=== PATIENT | female | born 1955 | race African-American/Black ===

== ENCOUNTER 2021-05-11 02:45 | Inpatient (IN) | payer MEDICARE, OTHER ==
[2021-05-11] VITALS (11 sets, daily range): BP systolic 106–180; BP diastolic 54–82
[~2021-05-11] VITALS: Ht 170.2 cm; Wt 40.2 kg
[2021-05-11] MEDS ORDERED: NALOXONE 0.4 MG/ML VIAL. ONE (02:51)
--- NOTE | 2021-05-11 03:16 | PHYS DOC ---
Past Medical History Past Medical History: Hypertension, Other Additional Past Medical Histor: "poor circulation in legs" Past Surgical History: Hysterectomy, Other Additional Past Surgical Histo: bilateral leg stents Smoking Status: Current Every Day Smoker Alcohol Use: None Drug Use: None General Adult EDM: Chief Complaint: RESP ARREST HPI: HPI: Patient is a 66 year old female who reportedly recently returned home from [facility] 8 with a trach and G-tube in place presents with altered mental status. Was found down by her son. Unknown downtime. On EMS arrival was nonresponsive, GCS of 3. Satting in the seventies despite nonrebreather in front of her trach. Trach is cuffed, but cuff was down. EMS reports sats improved to the nineties upon BVM. Blood glucose in the 100s. No additional history was available from son. Review of Systems: Review of Systems: Unable to obtain ROS due to altered mental status and trach Heart Score: C/O Chest Pain: N/A Risk Factors: Risk Factors: DM, Current or recent (<one month) smoker, HTN, HLP, family history of CAD, obesity. Risk Scores: Score 0 - 3: 2.5% MACE over next 6 weeks - Discharge Home Score 4 - 6: 20.3% MACE over next 6 weeks - Admit for Clinical Observation Score 7 - 10: 72.7% MACE over next 6 weeks - Early Invasive Strategies Current Medications: Current Medications Medications (Trade) Dose Ordered Sig/Alis Start Time Stop Time Status Last Admin Dose Admin Naloxone HCl (Narcan) 0.4 mg STK-MED ONCE 05/11/21 02:51 05/11/21 02:51 DC Allergies: Allergies: Allergies Coded Allergies Type Severity Reaction Last Updated Verified codeine Allergy Severe 10/09/14 Yes Physical Exam: PE: Constitutional: non responsive. frail appearing. trach and g-tube in place. [] HENT:6.0 shiley XLT cuffed trach in place. copious yellow secretions from trach. cuff initially deflated. oropharynx clear [] Eyes: pupils pinpoint. minimally responsive. [] Neck: Normal range of motion, no tenderness, supple, no stridor. [] Cardiovascular: tachycardic. regular rhythm, no murmur [] Lungs & Thorax: ronchorous breath sound bilaterally. [] Abdomen: g-tube in place, soft, non-distended. . [] Skin: cool, dry [] Extremities: No tenderness, no cyanosis, no clubbing, ROM intact, no edema. [] Neurologic: Initially gcs 3. pinpoint pupils. after narcan pupils dilated, communicating via writing, moving all 4 extremities purposefully. [] EKG: EKG: [] Radiology/Procedures: Radiology/Procedures: [] Impression: [facility] [address] [place] [address] IMAGING REPORT Signed PATIENT: CAROLYN CALVIN LACCOUNT: [id number] : 1955 LOCATION: ER AGE: 66 SEX: F EXAM STATUS: REG ER ORD. PHYSICIAN: JACQUIE FARIAS MD REASON: trach with large amount of mucous secretions PROCEDURE: CHEST AP ONLY EXAM: XR CHEST 1V 05/11/2021 3:07 AM CLINICAL INDICATION: Trach with large amount of mucous secretions COMPARISON: None TECHNIQUE: AP upright view of the chest FINDINGS: A tracheostomy tube terminates below the clavicular heads, 3 synovitis of the jassi. Heart is normal in size. Lungs are well-expanded. There are patchy bilateral interstitial and alveolar opacities opacities. Pleural parenchymal thickening in the apices. No pleural effusion or pneumothorax. No acute osseous abnormality.. IMPRESSION: Patchy bilateral interstitial and alveolar opacities could reflect pneumonia or pulmonary edema. Electronically signed by: Ana Adan MD (05/11/2021 4:17 AM) [id number] DICTATED and SIGNED BY: ANA ADAN MD DATE: 05/11/21 [id number] 0 Course & Med Decision Making: Course & Med Decision Making Pertinent Labs and Imaging studies reviewed. (See chart for details) Patient 66-year-old female with unknown past medical history, but recently came home from [facility] with a trach 6lpm baseline and G-tube in place. Was found unresponsive by her son. Hypoxic on EMS arrival, did not improve with passive vaccination, but did improve with BVM prior to hospital arrival. Pupils were pinpoint, and she had poor respiratory effort on arrival. She had copious secretions from her trach which was suctioned. Her trach cuff was inflated and she was delivered BVM breaths with improvement of sats to 100%. She was given 0.4 mg IV Narcan, and her pupils dilated and she became responsive. Her son called the ED and stated that 20 mg oxycodone pill was crushed and administered through her feeding tube prior to this episode. Will check labs, ekg, cxr, and continue to monitor her respiratory status. 0316 she is not tolerating deflation of her trach cuff. inner cannula changed. she is intermittently requiring BVM/positive pressure ventilation and very frequent suctioning of thick secretions causing desaturations. lactic acid 5 CXR and secretions concerning for aspiration. will cover with zosyn. will require admission, potentially to ICU given her need for PPV and frequent suctioning. 0403 She has had several desats requiring suctioning of mucous plugging during her ED stay. Blood pressure has been borderline as well with MAP's around 65-80. 1.5 L IV fluids have been ordered. She is on BIPAP with pressure control setting currently. pulling appropriate volumes. confirmed with patient she is FULL CODE. ICU orders placed. 0537 [facility] [place] Disclaimer: [employer] Disclaimer: This electronic medical record was generated, in whole or in part, using a voice recognition dictation system. Departure Departure Impression: Primary Impression: Acute on chronic respiratory failure Additional Impressions: Aspiration pneumonia Opiate overdose Respiratory arrest Sepsis Disposition: 09 ADMITTED INPATIENT Admitting Physician: FADIA (liza) Condition: CRITICAL Referrals: LINCOLN CARCAMO MD (PCP) JACQUIE FARIAS MD May 11, 2021 03:16
[2021-05-11 03:26] LABS: BASO # 0.1 x10^3/uL (0.0-0.2); BASO % 1 % (0-3); EOS % 0 % (0-3); HEMATOCRIT 31.8 % (36.0-47.0); HEMOGLOBIN 10.6 g/dL (12.0-15.5); LYMPH # 1.4 x10^3/uL (1.0-4.8); LYMPH % 14 % (24-48); MEAN CORPUSCULAR HEMOGLOBIN 33 pg (25-35); MEAN CORPUSCULAR HGB CONC 33 g/dL (31-37); MEAN CORPUSCULAR VOLUME 99 fL (79-100); MONO # 0.6 x10^3/uL (0.0-1.1); MONO % 6 % (0-9); NEUT # 8.1 x10^3/uL (1.8-7.7); NEUT % 79 % (31-73); PLATELET COUNT 305 x10^3/uL (140-400); RED BLOOD COUNT 3.21 x10^6/uL (3.50-5.40); RED CELL DISTRIBUTION WIDTH 16.3 % (11.5-14.5); WHITE BLOOD COUNT 10.3 x10^3/uL (4.0-11.0)
[2021-05-11] MEDS ORDERED: NALOXONE 0.4 MG/ML VIAL. IV ONE (03:30)
[2021-05-11] MEDS ORDERED: IV NORMAL SALINE 1000ML BAG 1,000 ML IV ONE (03:30)
[2021-05-11 03:35] LABS: CALCIUM 9.7 mg/dL (8.5-10.1); CREATININE 1.7 mg/dL (0.6-1.0); GFR 36.2; POTASSIUM 5.1 mmol/L (3.5-5.1)
[2021-05-11 03:40] LABS: ALBUMIN 2.4 g/dL (3.4-5.0); ALBUMIN/GLOBULIN RATIO 0.4 (1.0-1.7); TOTAL BILIRUBIN 0.6 mg/dL (0.2-1.0)
[2021-05-11 03:50] LABS: BASE EXCESS COOX 3 mmol/L (-3-3); HCO3 COOX 29 mmol/L (21-28); METHEMOGLOBIN 0.5 % (0.0-1.9); OXYHEMOGLOBIN 95.6 %; PCO2 COOX 54 mmHg (35-46); PO2 COOX 129 mmHg (65-108); SAT O2 COOX 98 % (92-99)
[2021-05-11] MEDS ORDERED: PIPERACILLIN/TAZOBACTAM 4.5 GM in IV NORMAL SALINE 100ML 100 ML IV ONE (04:00)
[2021-05-11] MEDS ORDERED: VANCOMYCIN 1.25 GM in IV NORMAL SALINE 250ML 250 ML IV ONE (04:15)
[2021-05-11] MEDS ORDERED: PIPERACILLIN/TAZOBACTAM 3.375 GM in IV NORMAL SALINE 50ML 50 ML IV ONE (04:15)
--- NOTE | 2021-05-11 04:20 | RAD ---
EXAM: XR CHEST 1V 05/11/2021 3:07 AM CLINICAL INDICATION: Trach with large amount of mucous secretions COMPARISON: None TECHNIQUE: AP upright view of the chest FINDINGS: A tracheostomy tube terminates below the clavicular heads, 3 synovitis of the jassi. Hear t is normal in size. Lungs are well-expanded. There are patchy bilateral interstitial and alveolar op acities opacities. Pleural parenchymal thickening in the apices. No pleural effusion or pneumothorax. No acute osseous abnormality.. IMPRESSION: Patchy bilateral interstitial and alveolar opacities could reflect pneumonia or pulmonar y edema. Electronically signed by: Ana Adan MD (05/11/2021 4:17 AM) [id number]
[2021-05-11] MEDS ORDERED: VANCOMYCIN 1 GM in IV NORMAL SALINE 250ML 250 ML IV ONE (05:00)
[2021-05-11] MEDS ORDERED: IV NORMAL SALINE 500ML BAG 500 ML IV ONE (05:30)
[2021-05-11] MEDS ORDERED: NALOXONE 0.4 MG/ML VIAL. IV PRN (07:00)
--- NOTE | 2021-05-11 07:19 | PDOC1 ---
History and Physical Date of Admission Date of Admission DATE: 05/11/21 TIME: 06:23 Identification/Chief Complaint Chief Complaint AMS Source Source: Chart review History of Present Illness History of Present Illness Ms. Art De La Cruz is a 66-year-old tracheostomy and PEG tube dependent patient, who presents to the ED due to altered mental status. She recent return home from [facility] and was found down by her son. Patient is a poor historian due to much information is obtained through son's report to ED personnel. Reportedly found down by her son early this morning with unknown downtime. Prior to this episode her son reported to ED personnel that 20 mg oxycodone pill was crushed and administered through her feeding tube. Upon EMS arrival she was not responsive with GCS of 3. She was initially bagged by EMS but she would intermittently desaturate to around 70% on room air. Upon arrival in the ED she was tachycardic and tachypneic. Her oxygen saturation improved with Narcan. Labs on arrival showed WBC 10.3, hemoglobin 10.6, hematocrit 31.8, BUN 37, creatinine 1.7, CBG 151, lactic acid 5.6, AST 82, ALT 195, alkaline phosphatase 173, albumin 2.4. Chest x-ray showed patchy bilateral interstitial and alveolar opacities possibly reflective of pneumonia or pulmonary edema. She received broad-spectrum antibiotics and IV fluids in the ED. She reportedly has been vaccinated against COVID-19. Will admit to ICU for further medical management. Past Medical History Past Medical History HTN, tracheostomy, PVD, PEG tube dependence (further history unable to obtain due to clinical condition) Past Surgical History Past Surgical History Hysterectomy, bilateral leg stents Family History Family History Unable to obtain at this time due to clinical condition Social History Smoke: 1 pack per day ALCOHOL: none Drugs: None Current Problem List Problem List Problems Medical Problems: (1) Acute on chronic respiratory failure Status: Acute (2) Aspiration pneumonia Status: Acute (3) Opiate overdose Status: Acute (4) Respiratory arrest Status: Acute (5) Sepsis Status: Acute Current Medications Current Medications Current Medications Naloxone HCl (Narcan) 0.4 mg STK-MED ONCE .ROUTE ; Start 05/11/21 at 02:51; Stop 05/11/21 at 02:51; Status DC Naloxone HCl (Narcan) 0.4 mg 1X ONCE IV Last administered on 05/11/21at 02:55; Start 05/11/21 at 03:30; Stop 05/11/21 at 03:31; Status DC Sodium Chloride 1,000 ml @ 1,000 mls/hr 1X ONCE IV Last administered on 05/11/21at 03:30; Start 05/11/21 at 03:30; Stop 05/11/21 at 04:29; Status DC Piperacillin Sod/ Tazobactam Sod 4.5 gm/Sodium Chloride 100 ml @ 200 mls/hr 1X ONCE IV ; Start 05/11/21 at 04:00; Stop 05/11/21 at 04:29; Status UNV Piperacillin Sod/ Tazobactam Sod 3.375 gm/Sodium Chloride 50 ml @ 100 mls/hr 1X ONCE IV Last administered on 05/11/21at 04:11; Start 05/11/21 at 04:15; Stop 05/11/21 at 04:44; Status DC Vancomycin HCl 1.25 gm/Sodium Chloride 250 ml @ 166.667 mls/hr 1X ONCE IV ; Start 05/11/21 at 04:15; Stop 05/11/21 at 05:44; Status UNV Vancomycin HCl 1 gm/Sodium Chloride 250 ml @ 250 mls/hr 1X ONCE IV Last administered on 05/11/21at 04:49; Start 05/11/21 at 05:00; Stop 05/11/21 at 05:59; Status DC Sodium Chloride 500 ml @ 500 mls/hr 1X ONCE IV Last administered on 05/11/21at 05:30; Start 05/11/21 at 05:30; Stop 05/11/21 at 06:29 Allergies Allergies: Coded Allergies: codeine (Verified Allergy, Severe, 10/09/14) ROS Review of System Unable to obtain at this time due to clinical condition Physical Exam Physical Exam General: Alert, Cooperative, mild distress, frail-appearing HEENT: PERRLA, EOMI Lungs: Bilateral rales, Normal air movement, tracheostomy tube in place Heart: Tachycardic, no murmurs Cardiovascular: S1, S2 Abdomen: Normal bowel sounds, firm, PEG tube in place with surrounding tenderness Extremities: No clubbing, No cyanosis Skin: No rashes, No significant lesion Neuro: Normal tone, Sensation intact Psych/Mental Status: Mental status NL, Mood NL Vitals Vitals Vital Signs Date Time Temp Pulse Resp B/P (MAP) Pulse Ox O2 Delivery O2 Flow Rate FiO2 05/11/21 05:27 100 20 101/56 (71) 99 BiPAP/CPAP 05/11/21 03:20 15.0 05/11/21 02:50 97.7 97.7 Labs Labs Laboratory Tests Test 05/11/21 03:14 White Blood Count 10.3 x10^3/uL (4.0-11.0) Red Blood Count 3.21 x10^6/uL (3.50-5.40) Hemoglobin 10.6 g/dL (12.0-15.5) Hematocrit 31.8 % (36.0-47.0) Mean Corpuscular Volume 99 fL (79-100) Mean Corpuscular Hemoglobin 33 pg (25-35) Mean Corpuscular Hemoglobin Concent 33 g/dL (31-37) Red Cell Distribution Width 16.3 % (11.5-14.5) Platelet Count 305 x10^3/uL (140-400) Neutrophils (%) (Auto) 79 % (31-73) Lymphocytes (%) (Auto) 14 % (24-48) Monocytes (%) (Auto) 6 % (0-9) Eosinophils (%) (Auto) 0 % (0-3) Basophils (%) (Auto) 1 % (0-3) Neutrophils # (Auto) 8.1 x10^3/uL (1.8-7.7) Lymphocytes # (Auto) 1.4 x10^3/uL (1.0-4.8) Monocytes # (Auto) 0.6 x10^3/uL (0.0-1.1) Eosinophils # (Auto) 0.0 x10^3/uL (0.0-0.7) Basophils # (Auto) 0.1 x10^3/uL (0.0-0.2) Sodium Level 134 mmol/L (136-145) Potassium Level 5.1 mmol/L (3.5-5.1) Chloride Level 95 mmol/L (98-107) Carbon Dioxide Level 30 mmol/L (21-32) Anion Gap 9 (6-14) Blood Urea Nitrogen 37 mg/dL (7-20) Creatinine 1.7 mg/dL (0.6-1.0) Estimated GFR (Cockcroft-Gault) 36.2 BUN/Creatinine Ratio 22 (6-20) Glucose Level 151 mg/dL (70-99) Lactic Acid Level 5.6 mmol/L (0.4-2.0) Calcium Level 9.7 mg/dL (8.5-10.1) Total Bilirubin 0.6 mg/dL (0.2-1.0) Aspartate Amino Transf (AST/SGOT) 82 U/L (15-37) Alanine Aminotransferase (ALT/SGPT) 194 U/L (14-59) Alkaline Phosphatase 173 U/L (46-116) Creatine Kinase 97 U/L (26-192) Total Protein 9.0 g/dL (6.4-8.2) Albumin 2.4 g/dL (3.4-5.0) Albumin/Globulin Ratio 0.4 (1.0-1.7) Laboratory Tests Test 05/11/21 03:14 White Blood Count 10.3 x10^3/uL (4.0-11.0) Red Blood Count 3.21 x10^6/uL (3.50-5.40) Hemoglobin 10.6 g/dL (12.0-15.5) Hematocrit 31.8 % (36.0-47.0) Mean Corpuscular Volume 99 fL (79-100) Mean Corpuscular Hemoglobin 33 pg (25-35) Mean Corpuscular Hemoglobin Concent 33 g/dL (31-37) Red Cell Distribution Width 16.3 % (11.5-14.5) Platelet Count 305 x10^3/uL (140-400) Neutrophils (%) (Auto) 79 % (31-73) Lymphocytes (%) (Auto) 14 % (24-48) Monocytes (%) (Auto) 6 % (0-9) Eosinophils (%) (Auto) 0 % (0-3) Basophils (%) (Auto) 1 % (0-3) Neutrophils # (Auto) 8.1 x10^3/uL (1.8-7.7) Lymphocytes # (Auto) 1.4 x10^3/uL (1.0-4.8) Monocytes # (Auto) 0.6 x10^3/uL (0.0-1.1) Eosinophils # (Auto) 0.0 x10^3/uL (0.0-0.7) Basophils # (Auto) 0.1 x10^3/uL (0.0-0.2) Sodium Level 134 mmol/L (136-145) Potassium Level 5.1 mmol/L (3.5-5.1) Chloride Level 95 mmol/L (98-107) Carbon Dioxide Level 30 mmol/L (21-32) Anion Gap 9 (6-14) Blood Urea Nitrogen 37 mg/dL (7-20) Creatinine 1.7 mg/dL (0.6-1.0) Estimated GFR (Cockcroft-Gault) 36.2 BUN/Creatinine Ratio 22 (6-20) Glucose Level 151 mg/dL (70-99) Lactic Acid Level 5.6 mmol/L (0.4-2.0) Calcium Level 9.7 mg/dL (8.5-10.1) Total Bilirubin 0.6 mg/dL (0.2-1.0) Aspartate Amino Transf (AST/SGOT) 82 U/L (15-37) Alanine Aminotransferase (ALT/SGPT) 194 U/L (14-59) Alkaline Phosphatase 173 U/L (46-116) Creatine Kinase 97 U/L (26-192) Total Protein 9.0 g/dL (6.4-8.2) Albumin 2.4 g/dL (3.4-5.0) Albumin/Globulin Ratio 0.4 (1.0-1.7) Images Images PATIENT: CAROLYN CALVIN LACCOUNT: [id number] : 1955 LOCATION: ER AGE: 66 SEX: F EXAM STATUS: REG ER ORD. PHYSICIAN: JACQUIE FARIAS MD REASON: trach with large amount of mucous secretions PROCEDURE: CHEST AP ONLY EXAM: XR CHEST 1V 05/11/2021 3:07 AM CLINICAL INDICATION: Trach with large amount of mucous secretions COMPARISON: None TECHNIQUE: AP upright view of the chest FINDINGS: A tracheostomy tube terminates below the clavicular heads, 3 synovitis of the jassi. Heart is normal in size. Lungs are well-expanded. There are patchy bilateral interstitial and alveolar opacities opacities. Pleural parenchymal thickening in the apices. No pleural effusion or pneumothorax. No acute osseous abnormality.. IMPRESSION: Patchy bilateral interstitial and alveolar opacities could reflect pneumonia or pulmonary edema. VTE Prophylaxis Ordered VTE Prophylaxis Devices: No VTE Pharmacological Prophylaxi: Yes Assessment/Plan Assessment/Plan Sepsis Respiratory failure with hypoxia Healthcare associated pneumonia due to possibly gram-positive or possibly gram- positive organism Aspiration pneumonia Oxycodone overdose DEIRDRE due to vasomotor nephropathy Lactic acidosis Transaminitis Severe malnutrition COVID-19 PUI Plan: We will admit patient to ICU given her need for PPV and frequent suctioning Consultation placed to pulmonology Will add additional sepsis fluid bolus Continue treatment of pneumonia with vancomycin and cefepime Transaminitis possibly secondary to shock liver; will provide IV fluids and continue to monitor. Narcan as needed Based admission labs kidney function currently consistent with CKD 3b; no baseline kidney function labs to compare. Provide IV fluids and continue to monitor. Will consult nephrology if no significant improvement. MRSA pending COVID-19 pending Consult placed to nutrition Resume home medications FEN - PEG tube feeds per nutrition PPX - Heparin FULL CODE Dispo - inpatient for above Surrogate decision maker is her son (Gavino Wharton) Critical care time 30 minutes spent reviewing charts, reviewing labs, reviewing imaging, discussion with ED personnel and ED attending physician. Justifications for Admission Other Justification TITA GAVIN MD May 11, 2021 07:19
[2021-05-11] MEDS ORDERED: MAGNESIUM HYDROXIDE 2,400 MG/30 ML ORAL.SUSP. PO PRN (07:30)
[2021-05-11] MEDS ORDERED: ACETAMINOPHEN 325 MG TABLET. PO PRN (07:30)
[2021-05-11] MEDS ORDERED: 0.9 % SODIUM CHLORIDE 10 ML DISP.SYRIN. IV PRN (07:30)
[2021-05-11] MEDS ORDERED: ONDANSETRON PF 4 MG/2 ML VIAL. IVP PRN (07:30)
[2021-05-11] MEDS ORDERED: IV NORMAL SALINE 500ML BAG 250 ML IV ONE (07:30)
--- NOTE | 2021-05-11 10:10 | CONS ---
DATE OF CONSULTATION: 05/11/2021 PULMONARY CONSULTATION ATTENDING PHYSICIAN: Dr. Piper. REASON FOR CONSULTATION: Respiratory failure. HISTORY OF PRESENT ILLNESS: The patient is a 66-year-old female who has a history of chronic tracheostomy and PEG tube placement, details of which are not available. She lives at [facility]. She was brought into the Emergency Department due to altered mental status. Reportedly, the patient was found down by her son earlier this morning with unknown downtime. There was report of 20 mg of oxycodone pill, which was given to her through the feeding tube. The patient was not responsive upon initial arrival to the Emergency Room with a Kaylan Coma Scale of 3. She was initially bagged by EMS and she would intermittently desaturating around 70% on room air. The patient did receive Narcan, which did improve her mental status. Her initial arterial blood gases obtained in the ER showed a pH of 7.36, pCO2 of 54 and a pO2 of 129 on 100% FiO2. I reviewed the patient's chest x-ray and it shows bilateral lower lobe alveolar and interstitial infiltrates. She does have some moderate trach secretions. She is now fully awake when I saw her in the ICU. She does respond by nodding her head. Unable to obtain much history from the patient. PAST MEDICAL HISTORY: History of respiratory failure, tracheostomy of unclear etiology. History of peripheral vascular disease, hypertension, history of PEG tube. PAST SURGICAL HISTORY: As discussed above, in addition includes hysterectomy. FAMILY HISTORY: Unable to obtain. ALLERGIES: CODEINE. MEDICATIONS: Reviewed as listed in the MRAD including antibiotics, cefepime and vancomycin. REVIEW OF SYSTEMS: Unable to obtain from the patient. PHYSICAL EXAMINATION: VITAL SIGNS: Reviewed. Her T-max is 100.3, blood pressure is 101/71, pulse ox 100% on trach collar. NECK: Supple. Trach in place. LUNGS: Few rhonchi anteriorly. CARDIOVASCULAR: With a regular rate. ABDOMEN: Soft. PEG tube is in place. EXTREMITIES: With no pitting edema. LABORATORY DATA: Reviewed. ABG discussed in my history of present illness. Lactic acid 5.6. C-reactive protein 101. Procalcitonin 0.79. Sodium 134, potassium 5.1, BUN 37, creatinine 1.7, albumin 2.4. White cell count 10.3, hemoglobin 10.6, platelets 305. IMPRESSION: 1. [id number] hypoxic and hypercapnic respiratory failure secondary to toxic encephalopathy and likely aspiration pneumonitis. 2. Low-grade fever and mild leukocytosis, likely source is lungs. 3. Lactic acidosis with early sepsis secondary to suspected aspiration pneumonia. 4. Acute kidney injury. 5. Moderate to severe protein-calorie malnutrition. 6. History of chronic respiratory failure with chronic tracheostomy and PEG tube placement. RECOMMENDATIONS: 1. We will discontinue ventilator and we will leave her on trach shield. Mental status has improved. 2. Followup ABGs. 3. Continue broad-spectrum antibiotic. 4. Tracheostomy secretion for C and S. 5. Heparin for DVT prophylaxis. 6. Follow all the cultures. 7. Discussed with RN and RT. Discussed with hospitalist. We will follow along with you. Chart reviewed, imaging studies reviewed. Critical care time [address]: [place] TID: [id number]
[2021-05-11] MEDS: HEPARIN for SUB-Q USE 5,000 UNIT/ML VIAL. SQ SCH ×2 (10:17→21:24)
[2021-05-11] MEDS: FAMOTIDINE 20 MG/2 ML VIAL IVP SCH (10:17)
[2021-05-11 11:43] LABS: BASE EXCESS ABG 5 mmol/L (-3-3); HCO3 ABG 32 mmol/L (21-28); PO2 ABG 144 mmHg (65-108); SAT O2 ABG 98 % (92-99)
[2021-05-11 11:48] LABS: FIO2 ABG 60; PCO2 ABG 60 mmHg (35-46)
[2021-05-11] MEDS: CEFEPIME HCL IV Push 2 GM VIAL. IVP SCH (12:14)
[2021-05-11] MEDS: VANCOMYCIN PER PHARMACY MC PRN (14:57)
--- NOTE | 2021-05-11 14:59 | NUR ---
Pharmacy Vancomycin Dosing Note S:Consulted to monitor and dose vancomycin started 05/11/21. O:CAROLYN CALVIN is a 66 year old F with HCAP . Height: 5 feet, 7 inches Weight: 40.6 kg Carson Body Weight: 61.60 Adjusted Body Weight: 53.20 Dosing Weight: Actual Other Antibiotics: Cefepime LABS: Last BUN: 37 Last Creatinine: 1.7 Creatinine Clearance: 20 mL/min Last WBC: 10.3 Last Procalcitonin: 0.79 Tmax (past 24 hours): 100.3 Microbiology: - I/O: 800/375 Last dose given 05/11/21 at 0449 Vancomycin Dosing: Loading Dose: 1000 mg x1 Dosing Weight: Actual Target Trough: 15-20 A: Based on: weight and renal function P: 1. Dosed vancomycin 1000 mg IV One Time 2. Follow up BMP ordered for am to assess renal function for further dosing 3. Pharmacy will continue to monitor, follow and adjust therapy as needed. Cynthia Rosenthal RPH, 05/11/21 [id number]
--- NOTE | 2021-05-11 15:53 | NUR ---
Wound/Ostomy Care Wound Type/Assessment: wound consult for coccyx wound. Pt has intertrigo to gluteal fold as well as arterial stasis ulcers to left medial and lateral foot. Cleansed, assessed and dressed wounds. Treatment Recommendations/Plan: Barrier cream to gluteal fold, BID and PRN. Betadine and foam dressing to left foot 2x weekly. Education provided: PU prevention and WC POC. Offloading surface/device: ICU bed and pillows Recommended Referrals/Tests: na Discharge Recommendations for dressings: see above Addendum: 05/11/21 at 1604 by JAMAR PETERSON RN Will discuss with Lady Mariee to determine if arterial study and xray are needed
[2021-05-11] MEDS ORDERED: METO25TA4 PO (15:59)
[2021-05-11] MEDS ORDERED: IPRA0.2S5 NEB (15:59)
[2021-05-11] MEDS ORDERED: FENT1PAT13 TP (15:59)
[2021-05-11] MEDS ORDERED: OXYC10TA PO (15:59)
[2021-05-11] MEDS ORDERED: LOSA-73 PO (15:59)
[2021-05-11] MEDS ORDERED: ALBU2.5V14 NEB (15:59)
[2021-05-11] MEDS ORDERED: LEVO-101 PO (15:59)
[2021-05-11] MEDS: METOPROLOL IV PUSH 5 MG/5 ML VIAL. IVP SCH (17:25)
[2021-05-11 17:39] LABS: BILIRUBIN,URINE NEGATIVE (NEG); CLARITY,URINE CLEAR; COLOR,URINE YELLOW; NITRITE,URINE NEGATIVE (NEG); PROTEIN,URINE NEGATIVE (NEG-TRACE); UROBILINOGEN,URINE 0.2 mg/dL (0.2 mg/dL)
[2021-05-11 17:54] LABS: BACTERIA,URINE FEW /HPF (0-FEW)
[2021-05-11 17:55] LABS: RBC,URINE 0 /HPF (0-2)
[2021-05-11] MEDS: fentaNYL PF VIAL 100 MCG/2 ML VIAL IV PRN (18:17)
--- NOTE | 2021-05-11 19:26 | NUR ---
Nurse's note: The patient arrived on the unit at 1840 via bed on 10 liters oxygen per trach collar. The patient is awake, oriented x 3, does not complain of pain. She was oriented to the unit, belongings checked, and call light placed within reach. Report given to Nkechi GA.
[2021-05-12] MEDS: fentaNYL PF VIAL 100 MCG/2 ML VIAL IV PRN (00:22)
[2021-05-12] MEDS: METOPROLOL IV PUSH 5 MG/5 ML VIAL. IVP SCH ×4 (00:22→18:09)
[2021-05-12 03:07] VITALS: BP 139/69
[2021-05-12 07:48] LABS: BASO # 0.1 x10^3/uL (0.0-0.2); BASO % 1 % (0-3); EOS # 0.2 x10^3/uL (0.0-0.7); EOS % 2 % (0-3); HEMATOCRIT 30.8 % (36.0-47.0); HEMOGLOBIN 10.6 g/dL (12.0-15.5); LYMPH # 1.2 x10^3/uL (1.0-4.8); LYMPH % 12 % (24-48); MEAN CORPUSCULAR HEMOGLOBIN 33 pg (25-35); MEAN CORPUSCULAR HGB CONC 35 g/dL (31-37); MEAN CORPUSCULAR VOLUME 96 fL (79-100); MONO # 0.7 x10^3/uL (0.0-1.1); MONO % 7 % (0-9); NEUT # 7.7 x10^3/uL (1.8-7.7); NEUT % 78 % (31-73); PLATELET COUNT 317 x10^3/uL (140-400); RED BLOOD COUNT 3.21 x10^6/uL (3.50-5.40); RED CELL DISTRIBUTION WIDTH 16.1 % (11.5-14.5); WHITE BLOOD COUNT 9.9 x10^3/uL (4.0-11.0)
[2021-05-12 08:00] VITALS: BP 148/70
[2021-05-12 08:23] LABS: CHOLESTEROL/HDL RATIO 4.2
[2021-05-12 08:25] LABS: CALCIUM 9.4 mg/dL (8.5-10.1); CREATININE 0.7 mg/dL (0.6-1.0); DIRECT BILIRUBIN 0.2 mg/dL (0.0-0.2); GFR 100.7; POTASSIUM 4.5 mmol/L (3.5-5.1); TOTAL BILIRUBIN 0.5 mg/dL (0.2-1.0); TOTAL PROTEIN 8.3 g/dL (6.4-8.2)
[2021-05-12] MEDS: VANCOMYCIN PER PHARMACY MC PRN (08:29)
--- NOTE | 2021-05-12 08:35 | NUR ---
Pharmacy Vancomycin Dosing Note S: Consulted to monitor and dose vancomycin started 05/11/21. O: CAROLYN CALVIN is a 66 year old F with HCAP, . Other Antibiotics: Cefepime LABS: Last BUN: 20 Last Creatinine: 0.7 Creatinine Clearance: 35 mL/min Last WBC: 9.9 Last Procalcitonin: 0.79 Tmax (past 24 hours): 98.7 Microbiology: - I/O: 1597/1725 Drug Levels: Last level: on at Last dose given 05/11/21 at 0449 Vancomycin Dosing: Dosing Weight: Actual Target Trough: 15-20 A: Based on: renal function improvement P: 1. Begin Vancomycin 500 mg IV q24h 2. Follow up Trough level on 05/13/21 at 0830 3. Pharmacy will continue to monitor, follow and adjust therapy as needed. Cynthia Rosenthal RPH, 05/12/21 0887
--- NOTE | 2021-05-12 09:19 | PDOC ---
PULMONARY PROGRESS NOTES DATE: 05/12/21 TIME: 09:16 Subjective Remains on trach shield. Patient has moderate trach secretions. Vitals Vital Signs Date Time Temp Pulse Resp B/P (MAP) Pulse Ox O2 Delivery O2 Flow Rate FiO2 05/12/21 08:00 98.2 89 22 148/70 (96) 96 Tracheal Collar 98.2 05/12/21 04:05 10.0 General: Alert, No acute distress Lungs: Other (Anterior rhonchi) Cardiovascular: S1 Abdomen: Soft Neuro Exam: Alert Extremities: No Edema Skin: Warm Labs Laboratory Tests Test 05/11/21 03:14 05/11/21 03:20 05/11/21 08:40 05/11/21 11:47 White Blood Count 10.3 x10^3/uL (4.0-11.0) Red Blood Count 3.21 x10^6/uL (3.50-5.40) Hemoglobin 10.6 g/dL (12.0-15.5) Hematocrit 31.8 % (36.0-47.0) Mean Corpuscular Volume 99 fL (79-100) Mean Corpuscular Hemoglobin 33 pg (25-35) Mean Corpuscular Hemoglobin Concent 33 g/dL (31-37) Red Cell Distribution Width 16.3 % (11.5-14.5) Platelet Count 305 x10^3/uL (140-400) Neutrophils (%) (Auto) 79 % (31-73) Lymphocytes (%) (Auto) 14 % (24-48) Monocytes (%) (Auto) 6 % (0-9) Eosinophils (%) (Auto) 0 % (0-3) Basophils (%) (Auto) 1 % (0-3) Neutrophils # (Auto) 8.1 x10^3/uL (1.8-7.7) Lymphocytes # (Auto) 1.4 x10^3/uL (1.0-4.8) Monocytes # (Auto) 0.6 x10^3/uL (0.0-1.1) Eosinophils # (Auto) 0.0 x10^3/uL (0.0-0.7) Basophils # (Auto) 0.1 x10^3/uL (0.0-0.2) Sodium Level 134 mmol/L (136-145) Potassium Level 5.1 mmol/L (3.5-5.1) Chloride Level 95 mmol/L (98-107) Carbon Dioxide Level 30 mmol/L (21-32) Anion Gap 9 (6-14) Blood Urea Nitrogen 37 mg/dL (7-20) Creatinine 1.7 mg/dL (0.6-1.0) Estimated GFR (Cockcroft-Gault) 36.2 BUN/Creatinine Ratio 22 (6-20) Glucose Level 151 mg/dL (70-99) Lactic Acid Level 5.6 mmol/L (0.4-2.0) 1.3 mmol/L (0.4-2.0) Calcium Level 9.7 mg/dL (8.5-10.1) Total Bilirubin 0.6 mg/dL (0.2-1.0) Aspartate Amino Transf (AST/SGOT) 82 U/L (15-37) Alanine Aminotransferase (ALT/SGPT) 194 U/L (14-59) Alkaline Phosphatase 173 U/L (46-116) Creatine Kinase 97 U/L (26-192) C-Reactive Protein, Quantitative 101.5 mg/L (0-3.3) Total Protein 9.0 g/dL (6.4-8.2) Albumin 2.4 g/dL (3.4-5.0) Albumin/Globulin Ratio 0.4 (1.0-1.7) Procalcitonin 0.79 ng/mL (0.00-0.10) O2 Saturation 98 % (92-99) 98 % (92-99) Arterial Blood pH 7.36 (7.35-7.45) 7.34 (7.35-7.45) Arterial Blood pCO2 at Patient Temp 54 mmHg (35-46) 60 mmHg (35-46) Arterial Blood pO2 at Patient Temp 129 mmHg (65-108) 144 mmHg (65-108) Arterial Blood HCO3 29 mmol/L (21-28) 32 mmol/L (21-28) Arterial Blood Base Excess 3 mmol/L (-3-3) 5 mmol/L (-3-3) Oxyhemoglobin 95.6 % Methemoglobin 0.5 % (0.0-1.9) Carbon Monoxide, Quantitative 2.0 % (0.0-1.9) FiO2 100 60 Test 05/11/21 12:30 05/11/21 17:30 05/12/21 06:25 Nasal Screen MRSA (PCR) Negative (NEGATIVE) Urine Collection Type Unknown Urine Color Yellow Urine Clarity Clear Urine pH 6.0 (<5.0-8.0) Urine Specific [place] 1.010 (1.000-1.030) Urine Protein Negative mg/dL (NEG-TRACE) Urine Glucose (UA) Negative mg/dL (NEG) Urine Ketones (Stick) Negative mg/dL (NEG) Urine Blood Negative (NEG) Urine Nitrite Negative (NEG) Urine Bilirubin Negative (NEG) Urine Urobilinogen Dipstick 0.2 mg/dL (0.2 mg/dL) Urine Leukocyte Esterase Small (NEG) Urine RBC 0 /HPF (0-2) Urine WBC 11-20 /HPF (0-4) Urine Squamous Epithelial Cells Mod /LPF Urine Renal Epithelial Cells Occ /LPF Urine Bacteria Few /HPF (0-FEW) White Blood Count 9.9 x10^3/uL (4.0-11.0) Red Blood Count 3.21 x10^6/uL (3.50-5.40) Hemoglobin 10.6 g/dL (12.0-15.5) Hematocrit 30.8 % (36.0-47.0) Mean Corpuscular Volume 96 fL (79-100) Mean Corpuscular Hemoglobin 33 pg (25-35) Mean Corpuscular Hemoglobin Concent 35 g/dL (31-37) Red Cell Distribution Width 16.1 % (11.5-14.5) Platelet Count 317 x10^3/uL (140-400) Neutrophils (%) (Auto) 78 % (31-73) Lymphocytes (%) (Auto) 12 % (24-48) Monocytes (%) (Auto) 7 % (0-9) Eosinophils (%) (Auto) 2 % (0-3) Basophils (%) (Auto) 1 % (0-3) Neutrophils # (Auto) 7.7 x10^3/uL (1.8-7.7) Lymphocytes # (Auto) 1.2 x10^3/uL (1.0-4.8) Monocytes # (Auto) 0.7 x10^3/uL (0.0-1.1) Eosinophils # (Auto) 0.2 x10^3/uL (0.0-0.7) Basophils # (Auto) 0.1 x10^3/uL (0.0-0.2) Sodium Level 142 mmol/L (136-145) Potassium Level 4.5 mmol/L (3.5-5.1) Chloride Level 102 mmol/L (98-107) Carbon Dioxide Level 36 mmol/L (21-32) Anion Gap 4 (6-14) Blood Urea Nitrogen 20 mg/dL (7-20) Creatinine 0.7 mg/dL (0.6-1.0) Estimated GFR (Cockcroft-Gault) 100.7 Glucose Level 83 mg/dL (70-99) Calcium Level 9.4 mg/dL (8.5-10.1) Total Bilirubin 0.5 mg/dL (0.2-1.0) Direct Bilirubin 0.2 mg/dL (0.0-0.2) Aspartate Amino Transf (AST/SGOT) 66 U/L (15-37) Alanine Aminotransferase (ALT/SGPT) 143 U/L (14-59) Alkaline Phosphatase 149 U/L (46-116) C-Reactive Protein, Quantitative 131.9 mg/L (0-3.3) Total Protein 8.3 g/dL (6.4-8.2) Albumin 2.0 g/dL (3.4-5.0) Triglycerides Level 73 mg/dL (0-150) Cholesterol Level 158 mg/dL (0-200) LDL Cholesterol, Calculated 105 mg/dL (0-100) VLDL Cholesterol, Calculated 15 mg/dL (0-40) Non-HDL Cholesterol Calculated 120 mg/dL (0-129) HDL Cholesterol 38 mg/dL (40-60) Cholesterol/HDL Ratio 4.2 Laboratory Tests Test 05/11/21 11:47 05/11/21 12:30 05/11/21 17:30 05/12/21 06:25 O2 Saturation 98 % (92-99) Arterial Blood pH 7.34 (7.35-7.45) Arterial Blood pCO2 at Patient Temp 60 mmHg (35-46) Arterial Blood pO2 at Patient Temp 144 mmHg (65-108) Arterial Blood HCO3 32 mmol/L (21-28) Arterial Blood Base Excess 5 mmol/L (-3-3) FiO2 60 Nasal Screen MRSA (PCR) Negative (NEGATIVE) Urine Collection Type Unknown Urine Color Yellow Urine Clarity Clear Urine pH 6.0 (<5.0-8.0) Urine Specific [place] 1.010 (1.000-1.030) Urine Protein Negative mg/dL (NEG-TRACE) Urine Glucose (UA) Negative mg/dL (NEG) Urine Ketones (Stick) Negative mg/dL (NEG) Urine Blood Negative (NEG) Urine Nitrite Negative (NEG) Urine Bilirubin Negative (NEG) Urine Urobilinogen Dipstick 0.2 mg/dL (0.2 mg/dL) Urine Leukocyte Esterase Small (NEG) Urine RBC 0 /HPF (0-2) Urine WBC 11-20 /HPF (0-4) Urine Squamous Epithelial Cells Mod /LPF Urine Renal Epithelial Cells Occ /LPF Urine Bacteria Few /HPF (0-FEW) White Blood Count 9.9 x10^3/uL (4.0-11.0) Red Blood Count 3.21 x10^6/uL (3.50-5.40) Hemoglobin 10.6 g/dL (12.0-15.5) Hematocrit 30.8 % (36.0-47.0) Mean Corpuscular Volume 96 fL (79-100) Mean Corpuscular Hemoglobin 33 pg (25-35) Mean Corpuscular Hemoglobin Concent 35 g/dL (31-37) Red Cell Distribution Width 16.1 % (11.5-14.5) Platelet Count 317 x10^3/uL (140-400) Neutrophils (%) (Auto) 78 % (31-73) Lymphocytes (%) (Auto) 12 % (24-48) Monocytes (%) (Auto) 7 % (0-9) Eosinophils (%) (Auto) 2 % (0-3) Basophils (%) (Auto) 1 % (0-3) Neutrophils # (Auto) 7.7 x10^3/uL (1.8-7.7) Lymphocytes # (Auto) 1.2 x10^3/uL (1.0-4.8) Monocytes # (Auto) 0.7 x10^3/uL (0.0-1.1) Eosinophils # (Auto) 0.2 x10^3/uL (0.0-0.7) Basophils # (Auto) 0.1 x10^3/uL (0.0-0.2) Sodium Level 142 mmol/L (136-145) Potassium Level 4.5 mmol/L (3.5-5.1) Chloride Level 102 mmol/L (98-107) Carbon Dioxide Level 36 mmol/L (21-32) Anion Gap 4 (6-14) Blood Urea Nitrogen 20 mg/dL (7-20) Creatinine 0.7 mg/dL (0.6-1.0) Estimated GFR (Cockcroft-Gault) 100.7 Glucose Level 83 mg/dL (70-99) Calcium Level 9.4 mg/dL (8.5-10.1) Total Bilirubin 0.5 mg/dL (0.2-1.0) Direct Bilirubin 0.2 mg/dL (0.0-0.2) Aspartate Amino Transf (AST/SGOT) 66 U/L (15-37) Alanine Aminotransferase (ALT/SGPT) 143 U/L (14-59) Alkaline Phosphatase 149 U/L (46-116) C-Reactive Protein, Quantitative 131.9 mg/L (0-3.3) Total Protein 8.3 g/dL (6.4-8.2) Albumin 2.0 g/dL (3.4-5.0) Triglycerides Level 73 mg/dL (0-150) Cholesterol Level 158 mg/dL (0-200) LDL Cholesterol, Calculated 105 mg/dL (0-100) VLDL Cholesterol, Calculated 15 mg/dL (0-40) Non-HDL Cholesterol Calculated 120 mg/dL (0-129) HDL Cholesterol 38 mg/dL (40-60) Cholesterol/HDL Ratio 4.2 Medications Active Scripts Medications Dose Route/Sig Max Daily Dose Days Date Category Ipratropium [place] 0.2 Mg/1 Ml Solution 1 Vial NEB QID 05/11/21 Reported Albuterol Sulfate Conc Neb Soln (Albuterol Sulfate) 2.5 Mg/0.5 Ml Vial.neb 1 Vial NEB Q4HRS 05/11/21 Reported FENTANYL 12mcg/hr (Fentanyl) 1 Each Patch.td72 1 Patch TP Q3DAYS 05/11/21 Reported Oxycodone Hcl Immed.release (Oxycodone Hcl) 10 Mg Tablet 10 Mg PO PRN Q4HRS PRN 05/11/21 Reported Metoprolol Tartrate 25 Mg Tablet 25 Mg PO BID 05/11/21 Reported Losartan Potassium 50 Mg Tablet 25 Mg PO DAILY 05/11/21 Reported Synthroid (Levothyroxine Sodium) 100 Mcg Tablet 100 Tab PO DAILY 05/11/21 Reported Impression . 1. [id number] hypoxic and hypercapnic respiratory failure secondary to toxic encephalopathy and likely aspiration pneumonitis. 2. Low-grade fever and mild leukocytosis, likely source is lungs. 3. Lactic acidosis with early sepsis secondary to suspected aspiration pneumonia. 4. Acute kidney injury. 5. Moderate to severe protein-calorie malnutrition. 6. History of chronic respiratory failure with chronic tracheostomy and PEG tube placement. Plan . 1. Continue on trach shield. With as needed suction. 2. Followup ABGs. As needed. 3. Continue broad-spectrum antibiotic. 4. Tracheostomy secretion for C and S.( Gram positive rods/ cocci) , Follow fin al cultures 5. Heparin for DVT prophylaxis. 6. Follow all the cultures. 7. Discussed with RN 8. Avoid hyperoxia. FRANK SANTIZO MD May 12, 2021 09:19
--- NOTE | 2021-05-12 09:54 | PDOC ---
PROGRESS NOTES Date of Service: DATE: 05/12/21 TIME: 09:54 Chief Complaint Chief Complaint Assessment/Plan Assessment/Plan Sepsis Respiratory failure with hypoxia / Patchy bilateral interstitial and alveolar opacities could reflect pneumonia or pulmonary edema Healthcare associated pneumonia due to possibly gram-positive or possibly gram- positive organism Aspiration pneumonia Oxycodone overdose DEIRDRE due to vasomotor nephropathy Lactic acidosis Transaminitis Severe malnutrition COVID-19 PUI Plan: We will admit patient to ICU given her need for PPV and frequent suctioning Consultation placed to pulmonology Will add additional sepsis fluid bolus Continue treatment of pneumonia with vancomycin and cefepime Transaminitis possibly secondary to shock liver; will provide IV fluids and cont inue to monitor. Narcan as needed Based admission labs kidney function currently consistent with CKD 3b; no baseline kidney function labs to compare. Provide IV fluids and continue to monitor. Will consult nephrology if no significant improvement. MRSA pending COVID-19 pending Consult placed to nutrition Resume home medications FEN - PEG tube feeds per nutrition PPX - Heparin FULL CODE Dispo - inpatient for above Surrogate decision maker is her son (Gavino Wharton) Critical care time 32 minutes spent reviewing charts, reviewing labs, reviewing imaging, discussion with ED personnel and ED attending physician. Discontinue ventilator and we will leave her on trach shield. Mental status has improved. Followup ABGs. Continue broad-spectrum antibiotic. Tracheostomy secretion for C and S. Heparin for DVT prophylaxis. 32 MIN CC TIME Justifications for Admission Justifications for Admission Other Justification History of Present Illness History of Present Illness Identification/Chief Complaint Chief Complaint AMS Source Source: Chart review History of Present Illness History of Present Illness Ms. Art De La Cruz is a 66-year-old tracheostomy and PEG tube dependent patient, who presents to the ED due to altered mental status. She recent return home from [facility] and was found down by her son. Patient is a poor historian due to much information is obtained through son's report to ED personnel. Reportedly found down by her son early this morning with unknown do wntime. Prior to this episode her son reported to ED personnel that 20 mg oxycodone pill was crushed and administered through her feeding tube. Upon EMS arrival she was not responsive with GCS of 3. She was initially bagged by EMS but she would intermittently desaturate to around 70% on room air. Upon arrival in the ED she was tachycardic and tachypneic. Her oxygen saturation improved with Narcan. Labs on arrival showed WBC 10.3, hemoglobin 10.6, hematocrit 31.8, BUN 37, creatinine 1.7, CBG 151, lactic acid 5.6, AST 82, ALT 195, alkaline phosphatase 173, albumin 2.4. Chest x-ray showed patchy bilateral interstitial and alveolar opacities possibly reflective of pneumonia or pulmonary edema. She received broad-spectrum antibiotics and IV fluids in the ED. She reportedly has been vaccinated against COVID-19. Will admit to ICU for further medical management. Past Medical History Past Medical History HTN, tracheostomy, PVD, PEG tube dependence (further history unable to obtain due to clinical condition) Past Surgical History Past Surgical History Hysterectomy, bilateral leg stents Family History Family History Unable to obtain at this time due to clinical condition Social History Smoke: 1 pack per day ALCOHOL: none Drugs: None Current Problem List Problem List Problems Medical Problems: (1) Acute on chronic respiratory failure Status: Acute (2) Aspiration pneumonia Status: Acute (3) Opiate overdose Status: Acute (4) Respiratory arrest Status: Acute (5) Sepsis Status: Acute Current Medications Current Medications Current Medications Naloxone HCl (Narcan) 0.4 mg STK-MED ONCE .ROUTE ; Start 05/11/21 at 02:51; Stop 05/11/21 at 02:51; Status DC Naloxone HCl (Narcan) 0.4 mg 1X ONCE IV Last administered on 05/11/21at 02:55; Start 05/11/21 at 03:30; Stop 05/11/21 at 03:31; Status DC Sodium Chloride 1,000 ml @ 1,000 mls/hr 1X ONCE IV Last administered on 05/11/21at 03:30; Start 05/11/21 at 03:30; Stop 05/11/21 at 04:29; Status DC Piperacillin Sod/ Tazobactam Sod 4.5 gm/Sodium Chloride 100 ml @ 200 mls/hr 1X ONCE IV ; Start 05/11/21 at 04:00; Stop 05/11/21 at 04:29; Status UNV Piperacillin Sod/ Tazobactam Sod 3.375 gm/Sodium Chloride 50 ml @ 100 mls/hr 1X ONCE IV Last administered on 05/11/21at 04:11; Start 05/11/21 at 04:15; Stop 05/11/21 at 04:44; Status DC Vancomycin HCl 1.25 gm/Sodium Chloride 250 ml @ 166.667 mls/hr 1X ONCE IV ; Start 05/11/21 at 04:15; Stop 05/11/21 at 05:44; Status UNV Vancomycin HCl 1 gm/Sodium Chloride 250 ml @ 250 mls/hr 1X ONCE IV Last administered on 05/11/21at 04:49; Start 05/11/21 at 05:00; Stop 05/11/21 at 05:59; Status DC Sodium Chloride 500 ml @ 500 mls/hr 1X ONCE IV Last administered on 05/11/21at 05:30; Start 05/11/21 at 05:30; Stop 05/11/21 at 06:29 Allergies Allergies: Coded Allergies: codeine (Verified Allergy, Severe, 10/09/14) ROS Review of System Unable to obtain at this time due to clinical condition Vitals Vitals Vital Signs Date Time Temp Pulse Resp B/P (MAP) Pulse Ox O2 Delivery O2 Flow Rate FiO2 05/12/21 08:00 98.2 89 22 148/70 (96) 96 Tracheal Collar 98.2 05/12/21 04:05 10.0 Physical Exam Physical Exam Physical Exam Physical Exam General: Alert, Cooperative, mild distress, frail-appearing HEENT: PERRLA, EOMI Lungs: Bilateral rales, Normal air movement, tracheostomy tube in place Heart: Tachycardic, no murmurs Cardiovascular: S1, S2 Abdomen: Normal bowel sounds, firm, PEG tube in place with surrounding tenderness Extremities: No clubbing, No cyanosis Skin: No rashes, No significant lesion Neuro: Normal tone, Sensation intact Psych/Mental Status: Mental status NL, Mood NL General: Cooperative Lungs: Other (Anterior rhonchi) Labs LABS PATIENT: CAROLYN CALVIN LACCOUNT: [id number] : 1955 LOCATION: ER AGE: 66 SEX: F EXAM STATUS: REG ER ORD. PHYSICIAN: JACQUIE FARIAS MD REASON: trach with large amount of mucous secretions PROCEDURE: CHEST AP ONLY EXAM: XR CHEST 1V 05/11/2021 3:07 AM CLINICAL INDICATION: Trach with large amount of mucous secretions COMPARISON: None TECHNIQUE: AP upright view of the chest FINDINGS: A tracheostomy tube terminates below the clavicular heads, 3 synovitis of the jassi. Heart is normal in size. Lungs are well-expanded. There are patchy bilateral interstitial and alveolar opacities opacities. Pleural parenchymal thickening in the apices. No pleural effusion or pneumothorax. No acute osseous abnormality.. IMPRESSION: Patchy bilateral interstitial and alveolar opacities could reflect pneumonia or pulmonary edema. Electronically signed by: Ana Adan MD (05/11/2021 4:17 AM) [id number] DICTATED and SIGNED BY: ANA ADAN MD DATE: 05/11/21 [id number] Laboratory Tests Test 05/11/21 11:47 05/11/21 12:30 05/11/21 17:30 05/12/21 06:25 O2 Saturation 98 % (92-99) Arterial Blood pH 7.34 (7.35-7.45) Arterial Blood pCO2 at Patient Temp 60 mmHg (35-46) Arterial Blood pO2 at Patient Temp 144 mmHg (65-108) Arterial Blood HCO3 32 mmol/L (21-28) Arterial Blood Base Excess 5 mmol/L (-3-3) FiO2 60 Nasal Screen MRSA (PCR) Negative (NEGATIVE) Urine Collection Type Unknown Urine Color Yellow Urine Clarity Clear Urine pH 6.0 (<5.0-8.0) Urine Specific [place] 1.010 (1.000-1.030) Urine Protein Negative mg/dL (NEG-TRACE) Urine Glucose (UA) Negative mg/dL (NEG) Urine Ketones (Stick) Negative mg/dL (NEG) Urine Blood Negative (NEG) Urine Nitrite Negative (NEG) Urine Bilirubin Negative (NEG) Urine Urobilinogen Dipstick 0.2 mg/dL (0.2 mg/dL) Urine Leukocyte Esterase Small (NEG) Urine RBC 0 /HPF (0-2) Urine WBC 11-20 /HPF (0-4) Urine Squamous Epithelial Cells Mod /LPF Urine Renal Epithelial Cells Occ /LPF Urine Bacteria Few /HPF (0-FEW) White Blood Count 9.9 x10^3/uL (4.0-11.0) Red Blood Count 3.21 x10^6/uL (3.50-5.40) Hemoglobin 10.6 g/dL (12.0-15.5) Hematocrit 30.8 % (36.0-47.0) Mean Corpuscular Volume 96 fL (79-100) Mean Corpuscular Hemoglobin 33 pg (25-35) Mean Corpuscular Hemoglobin Concent 35 g/dL (31-37) Red Cell Distribution Width 16.1 % (11.5-14.5) Platelet Count 317 x10^3/uL (140-400) Neutrophils (%) (Auto) 78 % (31-73) Lymphocytes (%) (Auto) 12 % (24-48) Monocytes (%) (Auto) 7 % (0-9) Eosinophils (%) (Auto) 2 % (0-3) Basophils (%) (Auto) 1 % (0-3) Neutrophils # (Auto) 7.7 x10^3/uL (1.8-7.7) Lymphocytes # (Auto) 1.2 x10^3/uL (1.0-4.8) Monocytes # (Auto) 0.7 x10^3/uL (0.0-1.1) Eosinophils # (Auto) 0.2 x10^3/uL (0.0-0.7) Basophils # (Auto) 0.1 x10^3/uL (0.0-0.2) Sodium Level 142 mmol/L (136-145) Potassium Level 4.5 mmol/L (3.5-5.1) Chloride Level 102 mmol/L (98-107) Carbon Dioxide Level 36 mmol/L (21-32) Anion Gap 4 (6-14) Blood Urea Nitrogen 20 mg/dL (7-20) Creatinine 0.7 mg/dL (0.6-1.0) Estimated GFR (Cockcroft-Gault) 100.7 Glucose Level 83 mg/dL (70-99) Calcium Level 9.4 mg/dL (8.5-10.1) Total Bilirubin 0.5 mg/dL (0.2-1.0) Direct Bilirubin 0.2 mg/dL (0.0-0.2) Aspartate Amino Transf (AST/SGOT) 66 U/L (15-37) Alanine Aminotransferase (ALT/SGPT) 143 U/L (14-59) Alkaline Phosphatase 149 U/L (46-116) C-Reactive Protein, Quantitative 131.9 mg/L (0-3.3) Total Protein 8.3 g/dL (6.4-8.2) Albumin 2.0 g/dL (3.4-5.0) Triglycerides Level 73 mg/dL (0-150) Cholesterol Level 158 mg/dL (0-200) LDL Cholesterol, Calculated 105 mg/dL (0-100) VLDL Cholesterol, Calculated 15 mg/dL (0-40) Non-HDL Cholesterol Calculated 120 mg/dL (0-129) HDL Cholesterol 38 mg/dL (40-60) Cholesterol/HDL Ratio 4.2 Assessment and Plan Assessmemt and Plan Problems Medical Problems: (1) Acute on chronic respiratory failure Status: Acute (2) Aspiration pneumonia Status: Acute (3) Opiate overdose Status: Acute (4) Respiratory arrest Status: Acute (5) Sepsis Status: Acute Comment Review of Relevant I have reviewed the following items omari (where applicable) has been applied. Labs Laboratory Tests Test 05/11/21 03:14 05/11/21 03:20 05/11/21 08:40 05/11/21 11:47 White Blood Count 10.3 x10^3/uL (4.0-11.0) Red Blood Count 3.21 x10^6/uL (3.50-5.40) Hemoglobin 10.6 g/dL (12.0-15.5) Hematocrit 31.8 % (36.0-47.0) Mean Corpuscular Volume 99 fL (79-100) Mean Corpuscular Hemoglobin 33 pg (25-35) Mean Corpuscular Hemoglobin Concent 33 g/dL (31-37) Red Cell Distribution Width 16.3 % (11.5-14.5) Platelet Count 305 x10^3/uL (140-400) Neutrophils (%) (Auto) 79 % (31-73) Lymphocytes (%) (Auto) 14 % (24-48) Monocytes (%) (Auto) 6 % (0-9) Eosinophils (%) (Auto) 0 % (0-3) Basophils (%) (Auto) 1 % (0-3) Neutrophils # (Auto) 8.1 x10^3/uL (1.8-7.7) Lymphocytes # (Auto) 1.4 x10^3/uL (1.0-4.8) Monocytes # (Auto) 0.6 x10^3/uL (0.0-1.1) Eosinophils # (Auto) 0.0 x10^3/uL (0.0-0.7) Basophils # (Auto) 0.1 x10^3/uL (0.0-0.2) Sodium Level 134 mmol/L (136-145) Potassium Level 5.1 mmol/L (3.5-5.1) Chloride Level 95 mmol/L (98-107) Carbon Dioxide Level 30 mmol/L (21-32) Anion Gap 9 (6-14) Blood Urea Nitrogen 37 mg/dL (7-20) Creatinine 1.7 mg/dL (0.6-1.0) Estimated GFR (Cockcroft-Gault) 36.2 BUN/Creatinine Ratio 22 (6-20) Glucose Level 151 mg/dL (70-99) Lactic Acid Level 5.6 mmol/L (0.4-2.0) 1.3 mmol/L (0.4-2.0) Calcium Level 9.7 mg/dL (8.5-10.1) Total Bilirubin 0.6 mg/dL (0.2-1.0) Aspartate Amino Transf (AST/SGOT) 82 U/L (15-37) Alanine Aminotransferase (ALT/SGPT) 194 U/L (14-59) Alkaline Phosphatase 173 U/L (46-116) Creatine Kinase 97 U/L (26-192) C-Reactive Protein, Quantitative 101.5 mg/L (0-3.3) Total Protein 9.0 g/dL (6.4-8.2) Albumin 2.4 g/dL (3.4-5.0) Albumin/Globulin Ratio 0.4 (1.0-1.7) Procalcitonin 0.79 ng/mL (0.00-0.10) O2 Saturation 98 % (92-99) 98 % (92-99) Arterial Blood pH 7.36 (7.35-7.45) 7.34 (7.35-7.45) Arterial Blood pCO2 at Patient Temp 54 mmHg (35-46) 60 mmHg (35-46) Arterial Blood pO2 at Patient Temp 129 mmHg (65-108) 144 mmHg (65-108) Arterial Blood HCO3 29 mmol/L (21-28) 32 mmol/L (21-28) Arterial Blood Base Excess 3 mmol/L (-3-3) 5 mmol/L (-3-3) Oxyhemoglobin 95.6 % Methemoglobin 0.5 % (0.0-1.9) Carbon Monoxide, Quantitative 2.0 % (0.0-1.9) FiO2 100 60 Test 05/11/21 12:30 05/11/21 17:30 05/12/21 06:25 Nasal Screen MRSA (PCR) Negative (NEGATIVE) Urine Collection Type Unknown Urine Color Yellow Urine Clarity Clear Urine pH 6.0 (<5.0-8.0) Urine Specific [place] 1.010 (1.000-1.030) Urine Protein Negative mg/dL (NEG-TRACE) Urine Glucose (UA) Negative mg/dL (NEG) Urine Ketones (Stick) Negative mg/dL (NEG) Urine Blood Negative (NEG) Urine Nitrite Negative (NEG) Urine Bilirubin Negative (NEG) Urine Urobilinogen Dipstick 0.2 mg/dL (0.2 mg/dL) Urine Leukocyte Esterase Small (NEG) Urine RBC 0 /HPF (0-2) Urine WBC 11-20 /HPF (0-4) Urine Squamous Epithelial Cells Mod /LPF Urine Renal Epithelial Cells Occ /LPF Urine Bacteria Few /HPF (0-FEW) White Blood Count 9.9 x10^3/uL (4.0-11.0) Red Blood Count 3.21 x10^6/uL (3.50-5.40) Hemoglobin 10.6 g/dL (12.0-15.5) Hematocrit 30.8 % (36.0-47.0) Mean Corpuscular Volume 96 fL (79-100) Mean Corpuscular Hemoglobin 33 pg (25-35) Mean Corpuscular Hemoglobin Concent 35 g/dL (31-37) Red Cell Distribution Width 16.1 % (11.5-14.5) Platelet Count 317 x10^3/uL (140-400) Neutrophils (%) (Auto) 78 % (31-73) Lymphocytes (%) (Auto) 12 % (24-48) Monocytes (%) (Auto) 7 % (0-9) Eosinophils (%) (Auto) 2 % (0-3) Basophils (%) (Auto) 1 % (0-3) Neutrophils # (Auto) 7.7 x10^3/uL (1.8-7.7) Lymphocytes # (Auto) 1.2 x10^3/uL (1.0-4.8) Monocytes # (Auto) 0.7 x10^3/uL (0.0-1.1) Eosinophils # (Auto) 0.2 x10^3/uL (0.0-0.7) Basophils # (Auto) 0.1 x10^3/uL (0.0-0.2) Sodium Level 142 mmol/L (136-145) Potassium Level 4.5 mmol/L (3.5-5.1) Chloride Level 102 mmol/L (98-107) Carbon Dioxide Level 36 mmol/L (21-32) Anion Gap 4 (6-14) Blood Urea Nitrogen 20 mg/dL (7-20) Creatinine 0.7 mg/dL (0.6-1.0) Estimated GFR (Cockcroft-Gault) 100.7 Glucose Level 83 mg/dL (70-99) Calcium Level 9.4 mg/dL (8.5-10.1) Total Bilirubin 0.5 mg/dL (0.2-1.0) Direct Bilirubin 0.2 mg/dL (0.0-0.2) Aspartate Amino Transf (AST/SGOT) 66 U/L (15-37) Alanine Aminotransferase (ALT/SGPT) 143 U/L (14-59) Alkaline Phosphatase 149 U/L (46-116) C-Reactive Protein, Quantitative 131.9 mg/L (0-3.3) Total Protein 8.3 g/dL (6.4-8.2) Albumin 2.0 g/dL (3.4-5.0) Triglycerides Level 73 mg/dL (0-150) Cholesterol Level 158 mg/dL (0-200) LDL Cholesterol, Calculated 105 mg/dL (0-100) VLDL Cholesterol, Calculated 15 mg/dL (0-40) Non-HDL Cholesterol Calculated 120 mg/dL (0-129) HDL Cholesterol 38 mg/dL (40-60) Cholesterol/HDL Ratio 4.2 Laboratory Tests Test 05/11/21 11:47 05/11/21 12:30 05/11/21 17:30 05/12/21 06:25 O2 Saturation 98 % (92-99) Arterial Blood pH 7.34 (7.35-7.45) Arterial Blood pCO2 at Patient Temp 60 mmHg (35-46) Arterial Blood pO2 at Patient Temp 144 mmHg (65-108) Arterial Blood HCO3 32 mmol/L (21-28) Arterial Blood Base Excess 5 mmol/L (-3-3) FiO2 60 Nasal Screen MRSA (PCR) Negative (NEGATIVE) Urine Collection Type Unknown Urine Color Yellow Urine Clarity Clear Urine pH 6.0 (<5.0-8.0) Urine Specific [place] 1.010 (1.000-1.030) Urine Protein Negative mg/dL (NEG-TRACE) Urine Glucose (UA) Negative mg/dL (NEG) Urine Ketones (Stick) Negative mg/dL (NEG) Urine Blood Negative (NEG) Urine Nitrite Negative (NEG) Urine Bilirubin Negative (NEG) Urine Urobilinogen Dipstick 0.2 mg/dL (0.2 mg/dL) Urine Leukocyte Esterase Small (NEG) Urine RBC 0 /HPF (0-2) Urine WBC 11-20 /HPF (0-4) Urine Squamous Epithelial Cells Mod /LPF Urine Renal Epithelial Cells Occ /LPF Urine Bacteria Few /HPF (0-FEW) White Blood Count 9.9 x10^3/uL (4.0-11.0) Red Blood Count 3.21 x10^6/uL (3.50-5.40) Hemoglobin 10.6 g/dL (12.0-15.5) Hematocrit 30.8 % (36.0-47.0) Mean Corpuscular Volume 96 fL (79-100) Mean Corpuscular Hemoglobin 33 pg (25-35) Mean Corpuscular Hemoglobin Concent 35 g/dL (31-37) Red Cell Distribution Width 16.1 % (11.5-14.5) Platelet Count 317 x10^3/uL (140-400) Neutrophils (%) (Auto) 78 % (31-73) Lymphocytes (%) (Auto) 12 % (24-48) Monocytes (%) (Auto) 7 % (0-9) Eosinophils (%) (Auto) 2 % (0-3) Basophils (%) (Auto) 1 % (0-3) Neutrophils # (Auto) 7.7 x10^3/uL (1.8-7.7) Lymphocytes # (Auto) 1.2 x10^3/uL (1.0-4.8) Monocytes # (Auto) 0.7 x10^3/uL (0.0-1.1) Eosinophils # (Auto) 0.2 x10^3/uL (0.0-0.7) Basophils # (Auto) 0.1 x10^3/uL (0.0-0.2) Sodium Level 142 mmol/L (136-145) Potassium Level 4.5 mmol/L (3.5-5.1) Chloride Level 102 mmol/L (98-107) Carbon Dioxide Level 36 mmol/L (21-32) Anion Gap 4 (6-14) Blood Urea Nitrogen 20 mg/dL (7-20) Creatinine 0.7 mg/dL (0.6-1.0) Estimated GFR (Cockcroft-Gault) 100.7 Glucose Level 83 mg/dL (70-99) Calcium Level 9.4 mg/dL (8.5-10.1) Total Bilirubin 0.5 mg/dL (0.2-1.0) Direct Bilirubin 0.2 mg/dL (0.0-0.2) Aspartate Amino Transf (AST/SGOT) 66 U/L (15-37) Alanine Aminotransferase (ALT/SGPT) 143 U/L (14-59) Alkaline Phosphatase 149 U/L (46-116) C-Reactive Protein, Quantitative 131.9 mg/L (0-3.3) Total Protein 8.3 g/dL (6.4-8.2) Albumin 2.0 g/dL (3.4-5.0) Triglycerides Level 73 mg/dL (0-150) Cholesterol Level 158 mg/dL (0-200) LDL Cholesterol, Calculated 105 mg/dL (0-100) VLDL Cholesterol, Calculated 15 mg/dL (0-40) Non-HDL Cholesterol Calculated 120 mg/dL (0-129) HDL Cholesterol 38 mg/dL (40-60) Cholesterol/HDL Ratio 4.2 Medications Current Medications Naloxone HCl (Narcan) 0.4 mg STK-MED ONCE .ROUTE ; Start 05/11/21 at 02:51; Stop 05/11/21 at 02:51; Status DC Naloxone HCl (Narcan) 0.4 mg 1X ONCE IV Last administered on 05/11/21at 02:55; Start 05/11/21 at 03:30; Stop 05/11/21 at 03:31; Status DC Sodium Chloride 1,000 ml @ 1,000 mls/hr 1X ONCE IV Last administered on 05/11/21at 03:30; Start 05/11/21 at 03:30; Stop 05/11/21 at 04:29; Status DC Piperacillin Sod/ Tazobactam Sod 4.5 gm/Sodium Chloride 100 ml @ 200 mls/hr 1X ONCE IV ; Start 05/11/21 at 04:00; Stop 05/11/21 at 04:29; Status UNV Piperacillin Sod/ Tazobactam Sod 3.375 gm/Sodium Chloride 50 ml @ 100 mls/hr 1X ONCE IV Last administered on 05/11/21at 04:11; Start 05/11/21 at 04:15; Stop 05/11/21 at 04:44; Status DC Vancomycin HCl 1.25 gm/Sodium Chloride 250 ml @ 166.667 mls/hr 1X ONCE IV ; Start 05/11/21 at 04:15; Stop 05/11/21 at 05:44; Status UNV Vancomycin HCl 1 gm/Sodium Chloride 250 ml @ 250 mls/hr 1X ONCE IV Last administered on 05/11/21at 04:49; Start 05/11/21 at 05:00; Stop 05/11/21 at 05:59; Status DC Sodium Chloride 500 ml @ 500 mls/hr 1X ONCE IV Last administered on 05/11/21at 05:30; Start 05/11/21 at 05:30; Stop 05/11/21 at 06:29; Status DC Sodium Chloride 250 ml @ 250 mls/hr 1X ONCE IV Last administered on 05/11/21at 07:31; Start 05/11/21 at 07:30; Stop 05/11/21 at 08:29; Status DC Naloxone HCl (Narcan) 0.4 mg PRN Q2MIN PRN IV SEE COMMENTS; Start 05/11/21 at 07:00 Acetaminophen (Tylenol) 650 mg PRN Q6HRS PRN PO Headaches, Temp > 101.5'; Start 05/11/21 at 07:30 Lorazepam (Ativan Inj) 0.5 mg PRN Q6HRS PRN IVP ANXIETY / AGITATION; Start 05/11/21 at 07:30 Ondansetron HCl (Zofran) 4 mg PRN Q6HRS PRN IVP NAUSEA/VOMITING; Start 05/11/21 at 07:30 Famotidine (Pepcid Vial) 20 mg DAILY IVP Last administered on 05/11/21at 10:17; Start 05/11/21 at 09:00 Heparin Sodium (Porcine) (Heparin Sodium) 5,000 unit Q12HR SQ Last administered on 05/11/21at 21:24; Start 05/11/21 at 09:00 Sodium Chloride (Normal Saline Flush) 3 ml QSHIFT PRN IV AFTER MEDS AND BLOOD DRAWS; Start 05/11/21 at 07:30 Morphine Sulfate (Morphine Sulfate) 2 mg PRN Q1HR PRN IV PAIN; Start 05/11/21 at 07:30 Fentanyl Citrate (Fentanyl 2ml Vial) 25 mcg PRN Q1HR PRN IV PAIN Last administered on 05/12/21at 00:22; Start 05/11/21 at 07:30 Magnesium Hydroxide (Milk Of Magnesia) 2,400 mg PRN Q12HR PRN PO CONSTIPATION; Start 05/11/21 at 07:30 Vancomycin HCl (Vanco Per Pharmacy) 1 each PRN DAILY PRN MC SEE COMMENTS Last administered on 05/12/21at 08:29; Start 05/11/21 at 07:30 Cefepime HCl (Maxipime) 2 gm Q24H IVP Last administered on 05/11/21at 12:14; Start 05/11/21 at 12:00 Metoprolol Tartrate (Lopressor Vial) 5 mg Q6HRS IVP Last administered on 05/12/21at 06:31; Start 05/11/21 at 18:00 Vancomycin HCl 500 mg/Sodium Chloride 100 ml @ 100 mls/hr Q24H IV ; Start 05/12/21 at 09:00 Vancomycin HCl (Vancomycin Trough Level) 1 each 1X ONCE MC ; Start 05/13/21 at 08:30; Stop 05/13/21 at 08:31 Active Scripts Active Reported Ipratropium [place] 0.2 Mg/1 Ml Solution 1 Vial NEB QID Albuterol Sulfate Conc Neb Soln (Albuterol Sulfate) 2.5 Mg/0.5 Ml Vial.neb 1 Vial NEB Q4HRS FENTANYL 12mcg/hr (Fentanyl) 1 Each Patch.td72 1 Patch TP Q3DAYS Oxycodone Hcl Immed.release (Oxycodone Hcl) 10 Mg Tablet 10 Mg PO PRN Q4HRS PRN Metoprolol Tartrate 25 Mg Tablet 25 Mg PO BID Losartan Potassium 50 Mg Tablet 25 Mg PO DAILY Synthroid (Levothyroxine Sodium) 100 Mcg Tablet 100 Tab PO DAILY Vitals/I & O Vital Sign - Last 24 Hours 05/11/21 05/11/21 05/11/21 05/11/21 10:00 11:00 11:47 12:00 Pulse 104 105 108 Resp 16 16 16 B/P (MAP) 106/54 (71) 138/71 (93) 117/63 (81) Pulse Ox 100 100 100 97 O2 Delivery trach shield trach shield AP NEB trach shield O2 Flow Rate 10.0 10.0 10.0 10.0 05/11/21 05/11/21 05/11/21 05/11/21 12:45 13:00 14:00 15:00 Temp 98.0 98.0 Pulse 110 103 107 Resp 18 16 16 B/P (MAP) 167/76 (106) 163/79 (107) 122/62 (82) Pulse Ox 96 98 97 97 O2 Delivery Tracheal Collar trach shield trach shield trach shield O2 Flow Rate 10.0 10.0 10.0 10.0 05/11/21 05/11/21 05/11/21 05/11/21 16:00 17:00 17:25 18:17 Temp 98.7 98.7 Pulse 106 112 119 Resp 16 16 20 B/P (MAP) 140/74 (96) 180/82 (114) 180/82 Pulse Ox 98 97 94 O2 Delivery trach shield trach shield Tracheal Collar O2 Flow Rate 10.0 10.0 10.0 05/11/21 05/11/21 05/11/21 05/11/21 18:50 19:00 20:20 23:00 Temp 98.3 98.4 98.3 98.4 Pulse 96 105 Resp 22 18 20 B/P (MAP) 109/54 (72) 134/70 (91) Pulse Ox 94 98 100 O2 Delivery Tracheal Collar Tracheal Collar Trach Collar Tracheal Collar O2 Flow Rate 10.0 10.0 05/12/21 05/12/21 05/12/21 05/12/21 00:22 00:30 00:52 03:07 Temp 97.9 97.9 Pulse 105 88 Resp 22 18 B/P (MAP) 134/70 139/69 (92) Pulse Ox 94 100 O2 Delivery Tracheal Collar Tracheal Collar Tracheal Collar O2 Flow Rate 10.0 05/12/21 05/12/21 05/12/21 04:05 06:31 08:00 Temp 98.2 98.2 Pulse 99 89 Resp 22 B/P (MAP) 139/69 148/70 (96) Pulse Ox 94 96 O2 Delivery Tracheal Collar Tracheal Collar O2 Flow Rate 10.0 Intake and Output 05/11/21 05/11/21 05/12/21 15:00 23:00 07:00 Intake Total 800 ml 797 ml Output Total 375 ml 750 ml 600 ml Balance 425 ml 47 ml -600 ml Nutrition Consultation Dietary Evaluation: Recommendations by RD: Dietary education by RD, Add supplement feedings Comments: continue nutrition via PEG jevity 1.5 bolus 237 ml (1 carton)4 x day flushes: 175 ml with each bolus Expected Outcomes/Goals: tolerate bolus TF Malnutrition Findings: Muscle Mass (Severe): Severe Depletion Body Fat Depletion (Non Severe: Mod to Severe Weight Status: Underweight Justicifation of Admission Dx: Justifications for Admission: Justification of Admission Dx: Yes Sepsis: Infection RACHEL MATSON MD May 12, 2021 09:54
[2021-05-12] MEDS: FAMOTIDINE 20 MG/2 ML VIAL IVP SCH (10:16)
[2021-05-12] MEDS: MORPHINE SULFATE 2 MG/ML INJ. IV PRN ×2 (10:27→18:08)
[2021-05-12] MEDS: HEPARIN for SUB-Q USE 5,000 UNIT/ML VIAL. SQ SCH ×2 (10:34→20:54)
[2021-05-12 11:34] VITALS: BP 150/76
[2021-05-12] MEDS: CEFEPIME HCL IV Push 2 GM VIAL. IVP SCH (12:00)
--- NOTE | 2021-05-12 12:06 | NUR ---
SS following for discharge planning. SS reviewed pt chart and discussed with pt RN. Pt is from home with family and is currently requiring oxygen at ten liters. Trach collar in place. COVID19 negative. Pt on IV Cefepime and IV Vancomycin. Per pt's son, pt has home oxygen (baseline 6 liters). Pt is current on services with [facility], ; fax [phone]. Pt recently discharge from [place] on 04/14/2021. SS will continue to follow for discharge planning.
[2021-05-12 16:00] VITALS: BP 154/81
[2021-05-12] MEDS: VANCOMYCIN 500 MG in IV NORMAL SALINE 100ML 100 ML IV SCH ×2 (18:09→19:24)
[2021-05-12 19:00] VITALS: BP 132/70
[2021-05-12 23:00] VITALS: BP 158/88
[2021-05-13] MEDS: METOPROLOL IV PUSH 5 MG/5 ML VIAL. IVP SCH ×4 (01:02→17:52)
[2021-05-13 03:00] VITALS: BP 161/88
[2021-05-13] MEDS: MORPHINE SULFATE 2 MG/ML INJ. IV PRN ×3 (06:43→18:40)
[2021-05-13 07:00] VITALS: BP 159/84
[2021-05-13 07:31] LABS: BASO % 1 % (0-3); EOS % 1 % (0-3); HEMATOCRIT 32.6 % (36.0-47.0); HEMOGLOBIN 10.9 g/dL (12.0-15.5); LYMPH # 1.6 x10^3/uL (1.0-4.8); LYMPH % 19 % (24-48); MEAN CORPUSCULAR HEMOGLOBIN 33 pg (25-35); MEAN CORPUSCULAR HGB CONC 34 g/dL (31-37); MEAN CORPUSCULAR VOLUME 97 fL (79-100); MONO # 0.5 x10^3/uL (0.0-1.1); MONO % 7 % (0-9); NEUT # 6.1 x10^3/uL (1.8-7.7); NEUT % 73 % (31-73); PLATELET COUNT 383 x10^3/uL (140-400); RED BLOOD COUNT 3.36 x10^6/uL (3.50-5.40); RED CELL DISTRIBUTION WIDTH 16.2 % (11.5-14.5); WHITE BLOOD COUNT 8.4 x10^3/uL (4.0-11.0)
[2021-05-13 07:43] LABS: ALBUMIN 2.2 g/dL (3.4-5.0); CALCIUM 10.1 mg/dL (8.5-10.1); CREATININE 0.7 mg/dL (0.6-1.0); DIRECT BILIRUBIN 0.2 mg/dL (0.0-0.2); GFR 100.7; POTASSIUM 4.5 mmol/L (3.5-5.1); TOTAL BILIRUBIN 0.6 mg/dL (0.2-1.0); TOTAL PROTEIN 9.1 g/dL (6.4-8.2)
--- NOTE | 2021-05-13 07:57 | PDOC ---
PULMONARY PROGRESS NOTES DATE: 05/13/21 TIME: 07:57 Subjective Patient on trach shield, not more short of breath. Vitals Vital Signs Date Time Temp Pulse Resp B/P (MAP) Pulse Ox O2 Delivery O2 Flow Rate FiO2 05/13/21 07:25 18 98 10.0 05/13/21 05:47 95 161/88 05/13/21 03:00 97.8 97.8 05/12/21 20:27 Trach Collar ROS: No Nausea, No Chest Pain, No Abdominal Pain, No Increase Cough General: Alert, No acute distress Lungs: Other (Anterior rhonchi) Cardiovascular: S1 Abdomen: Soft Neuro Exam: Alert Extremities: No Edema Skin: Warm Labs Laboratory Tests Test 05/11/21 08:40 05/11/21 11:47 05/11/21 12:30 05/11/21 17:30 Lactic Acid Level 1.3 mmol/L (0.4-2.0) O2 Saturation 98 % (92-99) Arterial Blood pH 7.34 (7.35-7.45) Arterial Blood pCO2 at Patient Temp 60 mmHg (35-46) Arterial Blood pO2 at Patient Temp 144 mmHg (65-108) Arterial Blood HCO3 32 mmol/L (21-28) Arterial Blood Base Excess 5 mmol/L (-3-3) FiO2 60 Nasal Screen MRSA (PCR) Negative (NEGATIVE) Urine Collection Type Unknown Urine Color Yellow Urine Clarity Clear Urine pH 6.0 (<5.0-8.0) Urine Specific [place] 1.010 (1.000-1.030) Urine Protein Negative mg/dL (NEG-TRACE) Urine Glucose (UA) Negative mg/dL (NEG) Urine Ketones (Stick) Negative mg/dL (NEG) Urine Blood Negative (NEG) Urine Nitrite Negative (NEG) Urine Bilirubin Negative (NEG) Urine Urobilinogen Dipstick 0.2 mg/dL (0.2 mg/dL) Urine Leukocyte Esterase Small (NEG) Urine RBC 0 /HPF (0-2) Urine WBC 11-20 /HPF (0-4) Urine Squamous Epithelial Cells Mod /LPF Urine Renal Epithelial Cells Occ /LPF Urine Bacteria Few /HPF (0-FEW) Test 05/12/21 06:25 05/13/21 06:15 White Blood Count 9.9 x10^3/uL (4.0-11.0) 8.4 x10^3/uL (4.0-11.0) Red Blood Count 3.21 x10^6/uL (3.50-5.40) 3.36 x10^6/uL (3.50-5.40) Hemoglobin 10.6 g/dL (12.0-15.5) 10.9 g/dL (12.0-15.5) Hematocrit 30.8 % (36.0-47.0) 32.6 % (36.0-47.0) Mean Corpuscular Volume 96 fL (79-100) 97 fL (79-100) Mean Corpuscular Hemoglobin 33 pg (25-35) 33 pg (25-35) Mean Corpuscular Hemoglobin Concent 35 g/dL (31-37) 34 g/dL (31-37) Red Cell Distribution Width 16.1 % (11.5-14.5) 16.2 % (11.5-14.5) Platelet Count 317 x10^3/uL (140-400) 383 x10^3/uL (140-400) Neutrophils (%) (Auto) 78 % (31-73) 73 % (31-73) Lymphocytes (%) (Auto) 12 % (24-48) 19 % (24-48) Monocytes (%) (Auto) 7 % (0-9) 7 % (0-9) Eosinophils (%) (Auto) 2 % (0-3) 1 % (0-3) Basophils (%) (Auto) 1 % (0-3) 1 % (0-3) Neutrophils # (Auto) 7.7 x10^3/uL (1.8-7.7) 6.1 x10^3/uL (1.8-7.7) Lymphocytes # (Auto) 1.2 x10^3/uL (1.0-4.8) 1.6 x10^3/uL (1.0-4.8) Monocytes # (Auto) 0.7 x10^3/uL (0.0-1.1) 0.5 x10^3/uL (0.0-1.1) Eosinophils # (Auto) 0.2 x10^3/uL (0.0-0.7) 0.0 x10^3/uL (0.0-0.7) Basophils # (Auto) 0.1 x10^3/uL (0.0-0.2) 0.0 x10^3/uL (0.0-0.2) Sodium Level 142 mmol/L (136-145) 140 mmol/L (136-145) Potassium Level 4.5 mmol/L (3.5-5.1) 4.5 mmol/L (3.5-5.1) Chloride Level 102 mmol/L (98-107) 98 mmol/L (98-107) Carbon Dioxide Level 36 mmol/L (21-32) 34 mmol/L (21-32) Anion Gap 4 (6-14) 8 (6-14) Blood Urea Nitrogen 20 mg/dL (7-20) 20 mg/dL (7-20) Creatinine 0.7 mg/dL (0.6-1.0) 0.7 mg/dL (0.6-1.0) Estimated GFR (Cockcroft-Gault) 100.7 100.7 Glucose Level 83 mg/dL (70-99) 41 mg/dL (70-99) Calcium Level 9.4 mg/dL (8.5-10.1) 10.1 mg/dL (8.5-10.1) Total Bilirubin 0.5 mg/dL (0.2-1.0) 0.6 mg/dL (0.2-1.0) Direct Bilirubin 0.2 mg/dL (0.0-0.2) 0.2 mg/dL (0.0-0.2) Aspartate Amino Transf (AST/SGOT) 66 U/L (15-37) 35 U/L (15-37) Alanine Aminotransferase (ALT/SGPT) 143 U/L (14-59) 115 U/L (14-59) Alkaline Phosphatase 149 U/L (46-116) 153 U/L (46-116) C-Reactive Protein, Quantitative 131.9 mg/L (0-3.3) Total Protein 8.3 g/dL (6.4-8.2) 9.1 g/dL (6.4-8.2) Albumin 2.0 g/dL (3.4-5.0) 2.2 g/dL (3.4-5.0) Triglycerides Level 73 mg/dL (0-150) Cholesterol Level 158 mg/dL (0-200) LDL Cholesterol, Calculated 105 mg/dL (0-100) VLDL Cholesterol, Calculated 15 mg/dL (0-40) Non-HDL Cholesterol Calculated 120 mg/dL (0-129) HDL Cholesterol 38 mg/dL (40-60) Cholesterol/HDL Ratio 4.2 Laboratory Tests Test 05/13/21 06:15 White Blood Count 8.4 x10^3/uL (4.0-11.0) Red Blood Count 3.36 x10^6/uL (3.50-5.40) Hemoglobin 10.9 g/dL (12.0-15.5) Hematocrit 32.6 % (36.0-47.0) Mean Corpuscular Volume 97 fL (79-100) Mean Corpuscular Hemoglobin 33 pg (25-35) Mean Corpuscular Hemoglobin Concent 34 g/dL (31-37) Red Cell Distribution Width 16.2 % (11.5-14.5) Platelet Count 383 x10^3/uL (140-400) Neutrophils (%) (Auto) 73 % (31-73) Lymphocytes (%) (Auto) 19 % (24-48) Monocytes (%) (Auto) 7 % (0-9) Eosinophils (%) (Auto) 1 % (0-3) Basophils (%) (Auto) 1 % (0-3) Neutrophils # (Auto) 6.1 x10^3/uL (1.8-7.7) Lymphocytes # (Auto) 1.6 x10^3/uL (1.0-4.8) Monocytes # (Auto) 0.5 x10^3/uL (0.0-1.1) Eosinophils # (Auto) 0.0 x10^3/uL (0.0-0.7) Basophils # (Auto) 0.0 x10^3/uL (0.0-0.2) Sodium Level 140 mmol/L (136-145) Potassium Level 4.5 mmol/L (3.5-5.1) Chloride Level 98 mmol/L (98-107) Carbon Dioxide Level 34 mmol/L (21-32) Anion Gap 8 (6-14) Blood Urea Nitrogen 20 mg/dL (7-20) Creatinine 0.7 mg/dL (0.6-1.0) Estimated GFR (Cockcroft-Gault) 100.7 Glucose Level 41 mg/dL (70-99) Calcium Level 10.1 mg/dL (8.5-10.1) Total Bilirubin 0.6 mg/dL (0.2-1.0) Direct Bilirubin 0.2 mg/dL (0.0-0.2) Aspartate Amino Transf (AST/SGOT) 35 U/L (15-37) Alanine Aminotransferase (ALT/SGPT) 115 U/L (14-59) Alkaline Phosphatase 153 U/L (46-116) Total Protein 9.1 g/dL (6.4-8.2) Albumin 2.2 g/dL (3.4-5.0) Medications Active Scripts Medications Dose Route/Sig Max Daily Dose Days Date Category Ipratropium [place] 0.2 Mg/1 Ml Solution 1 Vial NEB QID 05/11/21 Reported Albuterol Sulfate Conc Neb Soln (Albuterol Sulfate) 2.5 Mg/0.5 Ml Vial.neb 1 Vial NEB Q4HRS 05/11/21 Reported FENTANYL 12mcg/hr (Fentanyl) 1 Each Patch.td72 1 Patch TP Q3DAYS 05/11/21 Reported Oxycodone Hcl Immed.release (Oxycodone Hcl) 10 Mg Tablet 10 Mg PO PRN Q4HRS PRN 05/11/21 Reported Metoprolol Tartrate 25 Mg Tablet 25 Mg PO BID 05/11/21 Reported Losartan Potassium 50 Mg Tablet 25 Mg PO DAILY 05/11/21 Reported Synthroid (Levothyroxine Sodium) 100 Mcg Tablet 100 Tab PO DAILY 05/11/21 Reported Impression . 1. [id number] hypoxic and hypercapnic respiratory failure secondary to toxic encephalopathy and likely aspiration pneumonitis. 2. Low-grade fever and mild leukocytosis, secondary to aspiration the 3. Lactic acidosis with early sepsis secondary to suspected aspiration pneumonia. 4. Acute kidney injury. 5. Moderate to severe protein-calorie malnutrition. 6. History of chronic respiratory failure with chronic tracheostomy and PEG tube placement. Plan . Updated 05/13 Continue current antibiotics Continue trach shield DVT prophylaxis Follow-up on cultures 1. Continue on trach shield. With as needed suction. 2. Followup ABGs. As needed. 3. Continue broad-spectrum antibiotic. 4. Tracheostomy secretion for C and S.( Gram positive rods/ cocci) , Follow final cultures 5. Heparin for DVT prophylaxis. 6. Follow all the cultures. 7. Discussed with RN 8. Avoid hyperoxia. KENNY KINGSTON MD May 13, 2021 07:57
[2021-05-13] MEDS: FAMOTIDINE 20 MG/2 ML VIAL IVP SCH (09:00)
[2021-05-13] MEDS: HEPARIN for SUB-Q USE 5,000 UNIT/ML VIAL. SQ SCH ×2 (09:16→21:13)
--- NOTE | 2021-05-13 10:35 | PDOC ---
PROGRESS NOTES Date of Service: DATE: 05/13/21 TIME: 10:34 Chief Complaint Chief Complaint Assessment/Plan Assessment/Plan Sepsis Acute kidney injury. Moderate to severe protein-calorie malnutrition. History of chronic respiratory failure with chronic tracheostomy and PEG tube placement. Respiratory failure with hypoxia / Patchy bilateral interstitial and alveolar opacities could reflect pneumonia or pulmonary edema Healthcare associated pneumonia due to possibly gram-positive or possibly gram- positive organism Aspiration pneumonia Oxycodone overdose DEIRDRE due to vasomotor nephropathy Lactic acidosis Transaminitis Severe malnutrition COVID-19 PUI Tracheostomy secretion for C and S.( Gram positive rods/ cocci) , Follow final cultures Heparin for DVT prophylaxis. Plan: need for PPV and frequent suctioning Consultation placed to pulmonology Will add additional sepsis fluid bolus Continue treatment of pneumonia with vancomycin and cefepime Transaminitis possibly secondary to shock liver; will provide IV fluids and continue to monitor. Narcan as needed Based admission labs kidney function currently consistent with CKD 3b; no baseline kidney function labs to compare. Provide IV fluids and continue to monitor. Will consult nephrology if no significant improvement. MRSA pending COVID-19 pending Consult placed to nutrition Resume home medications FEN - PEG tube feeds per nutrition PPX - Heparin FULL CODE Dispo - inpatient for above Surrogate decision maker is her son (Gavino Wharton) Critical care time 32 minutes spent reviewing charts, reviewing labs, reviewing imaging, discussion with ED personnel and ED attending physician. Discontinue ventilator and we will leave her on trach shield. Mental status has improved. Followup ABGs. Continue broad-spectrum antibiotic. Tracheostomy secretion for C and S. Heparin for DVT prophylaxis. PT/OT Tracheostomy secretion for C and S.( Gram positive rods/ cocci) , Heparin DVT prophylaxis. GRAM STAIN EVALUATION Final Final This specimen is of good quality and is acceptable for routine bacterial culture. Culture results to follow. GRAM NEGATIVE RODS:RARE GRAM POSITIVE RODS:FEW GRAM POSITIVE COCCI:RARE Justifications for Admission Justifications for Admission Other Justification History of Present Illness History of Present Illness Identification/Chief Complaint Chief Complaint AMS Source Source: Chart review History of Present Illness History of Present Illness Ms. Art De La Cruz is a 66-year-old tracheostomy and PEG tube dependent patient, who presents to the ED due to altered mental status. She recent return home from [facility]– [place][note 2] and was found down by her son. Patient is a poor historian due to much information is obtained through son's report to ED personnel. Reportedly found down by her son early this morning with unknown downtime. Prior to this episode her son reported to ED personnel that 20 mg oxycodone pill was crushed and administered through her feeding tube. Upon EMS arrival she was not responsive with GCS of 3. She was initially bagged by EMS but she would intermittently desaturate to around 70% on room air. Upon arrival in the ED she was tachycardic and tachypneic. Her oxygen saturation improved with Narcan. Labs on arrival showed WBC 10.3, hemoglobin 10.6, hematocrit 31.8, BUN 37, creatinine 1.7, CBG 151, lactic acid 5.6, AST 82, ALT 195, alkaline phosphatase 173, albumin 2.4. Chest x-ray showed patchy bilateral interstitial and alveolar opacities possibly reflective of pneumonia or pulmonary edema. She received broad-spectrum antibiotics and IV fluids in the ED. She reportedly has been vaccinated against COVID-19. Will admit to ICU for further medical management. Past Medical History Past Medical History HTN, tracheostomy, PVD, PEG tube dependence (further history unable to obtain due to clinical condition) Past Surgical History Past Surgical History Hysterectomy, bilateral leg stents Family History Family History Unable to obtain at this time due to clinical condition Social History Smoke: 1 pack per day ALCOHOL: none Drugs: None Current Problem List Problem List Problems Medical Problems: (1) Acute on chronic respiratory failure Status: Acute (2) Aspiration pneumonia Status: Acute (3) Opiate overdose Status: Acute (4) Respiratory arrest Status: Acute (5) Sepsis Status: Acute Current Medications Current Medications Current Medications Naloxone HCl (Narcan) 0.4 mg STK-MED ONCE .ROUTE ; Start 05/11/21 at 02:51; Stop 05/11/21 at 02:51; Status DC Naloxone HCl (Narcan) 0.4 mg 1X ONCE IV Last administered on 05/11/21at 02:55; Start 05/11/21 at 03:30; Stop 05/11/21 at 03:31; Status DC Sodium Chloride 1,000 ml @ 1,000 mls/hr 1X ONCE IV Last administered on 05/11/21at 03:30; Start 05/11/21 at 03:30; Stop 05/11/21 at 04:29; Status DC Piperacillin Sod/ Tazobactam Sod 4.5 gm/Sodium Chloride 100 ml @ 200 mls/hr 1X ONCE IV ; Start 05/11/21 at 04:00; Stop 05/11/21 at 04:29; Status UNV Piperacillin Sod/ Tazobactam Sod 3.375 gm/Sodium Chloride 50 ml @ 100 mls/hr 1X ONCE IV Last administered on 05/11/21at 04:11; Start 05/11/21 at 04:15; Stop 05/11/21 at 04:44; Status DC Vancomycin HCl 1.25 gm/Sodium Chloride 250 ml @ 166.667 mls/hr 1X ONCE IV ; Start 05/11/21 at 04:15; Stop 05/11/21 at 05:44; Status UNV Vancomycin HCl 1 gm/Sodium Chloride 250 ml @ 250 mls/hr 1X ONCE IV Last administered on 05/11/21at 04:49; Start 05/11/21 at 05:00; Stop 05/11/21 at 05:59; Status DC Sodium Chloride 500 ml @ 500 mls/hr 1X ONCE IV Last administered on 05/11/21at 05:30; Start 05/11/21 at 05:30; Stop 05/11/21 at 06:29 Allergies Allergies: Coded Allergies: codeine (Verified Allergy, Severe, 10/09/14) ROS Review of System Unable to obtain at this time due to clinical condition 05-13 Acute kidney injury. Moderate to severe protein-calorie malnutrition. History of chronic respiratory failure with chronic tracheostomy and PEG tube placement. Respiratory failure with hypoxia / Patchy bilateral interstitial and alveolar opacities could reflect pneumonia or pulmonary edema Healthcare associated pneumonia due to possibly gram-positive or possibly gram- positive organism Aspiration pneumonia Oxycodone overdose DEIRDRE due to vasomotor nephropathy Lactic acidosis Transaminitis Severe malnutrition COVID-19 PUI Tracheostomy secretion for C and S.( Gram positive rods/ cocci) , Follow final cultures Heparin for DVT prophylaxis. Plan: need for PPV and frequent suctioning Consultation placed to pulmonology Will add additional sepsis fluid bolus Continue treatment of pneumonia with vancomycin and cefepime Transaminitis possibly secondary to shock liver; will provide IV fluids and continue to monitor. Narcan as needed Based admission labs kidney function currently consistent with CKD 3b; no baseline kidney function labs to compare. Provide IV fluids and continue to monitor. Will consult nephrology if no significant improvement. MRSA pending COVID-19 pending Consult placed to nutrition Resume home medications FEN - PEG tube feeds per nutrition PPX - Heparin FULL CODE Dispo - inpatient for above Surrogate decision maker is her son (Gavino Wharton) Critical care time 32 minutes spent reviewing charts, reviewing labs, reviewing imaging, Discontinue ventilator and we will leave her on trach shield. Mental status has improved. Followup ABGs. Continue broad-spectrum antibiotic. Tracheostomy secretion for C and S. Heparin for DVT prophylaxis. PT/OT Tracheostomy secretion for C and S.( Gram positive rods/ cocci) , Heparin DVT prophylaxis. GRAM STAIN EVALUATION Final Final This specimen is of good quality and is acceptable for routine bacterial culture. Culture results to follow. GRAM NEGATIVE RODS:RARE GRAM POSITIVE RODS:FEW GRAM POSITIVE COCCI:RARE Vitals Vitals Vital Signs Date Time Temp Pulse Resp B/P (MAP) Pulse Ox O2 Delivery O2 Flow Rate FiO2 05/13/21 07:25 18 98 10.0 05/13/21 07:00 98.0 90 159/84 (109) Tracheal Collar 98.0 Physical Exam Physical Exam Physical Exam Physical Exam General: Alert, Cooperative, mild distress, frail-appearing HEENT: PERRLA, EOMI Lungs: Bilateral rales, Normal air movement, tracheostomy tube in place Heart: Tachycardic, no murmurs Cardiovascular: S1, S2 Abdomen: Normal bowel sounds, firm, PEG tube in place with surrounding tenderness Extremities: No clubbing, No cyanosis Skin: No rashes, No significant lesion Neuro: Normal tone, Sensation intact Psych/Mental Status: Mental status NL, Mood NL General: Cooperative Lungs: Other (Anterior rhonchi) Labs LABS SPEC #: [id number] CATIE: 05/11/21-1245 STATUS: RES REQ #: [id number] RECD: 05/11/211325 SUBM DR: FRANK SANTIZO MD SOURCE: SPUTUM ENTR: 05/11/21-[address]: LINCOLN CARCAMO MD SPDESC: INDUCED TITA GAVIN MD ORDERED: RESP CULTURE COMMENTS: Has specimen been collected/obtained? Y TRACH ASPIRATE -------- ---- Procedure Result GRAM STAIN EVALUATION Final Final This specimen is of good quality and is acceptable for routine bacterial culture. Culture results to follow. GRAM NEGATIVE RODS:RARE GRAM POSITIVE RODS:FEW GRAM POSITIVE COCCI:RARE SQUAMOUS EPI CELL:RARE PMN (WBCs):MANY Unless otherwise specified, Testing Performed by: [address] [address] For Inquires, the Physician may contact the Microbiology department at [phone] RESPIRATORY CULTURE Preliminary Preliminary MODERATE Mixed upper respiratory waldo on 05/13/21 at 1014 Unless otherwise specified, Testing Performed by: [address] [address] For Inquires, the Physician may contact the Microbiology department at [phone] Laboratory Tests Test 05/13/21 06:15 White Blood Count 8.4 x10^3/uL (4.0-11.0) Red Blood Count 3.36 x10^6/uL (3.50-5.40) Hemoglobin 10.9 g/dL (12.0-15.5) Hematocrit 32.6 % (36.0-47.0) Mean Corpuscular Volume 97 fL (79-100) Mean Corpuscular Hemoglobin 33 pg (25-35) Mean Corpuscular Hemoglobin Concent 34 g/dL (31-37) Red Cell Distribution Width 16.2 % (11.5-14.5) Platelet Count 383 x10^3/uL (140-400) Neutrophils (%) (Auto) 73 % (31-73) Lymphocytes (%) (Auto) 19 % (24-48) Monocytes (%) (Auto) 7 % (0-9) Eosinophils (%) (Auto) 1 % (0-3) Basophils (%) (Auto) 1 % (0-3) Neutrophils # (Auto) 6.1 x10^3/uL (1.8-7.7) Lymphocytes # (Auto) 1.6 x10^3/uL (1.0-4.8) Monocytes # (Auto) 0.5 x10^3/uL (0.0-1.1) Eosinophils # (Auto) 0.0 x10^3/uL (0.0-0.7) Basophils # (Auto) 0.0 x10^3/uL (0.0-0.2) Sodium Level 140 mmol/L (136-145) Potassium Level 4.5 mmol/L (3.5-5.1) Chloride Level 98 mmol/L (98-107) Carbon Dioxide Level 34 mmol/L (21-32) Anion Gap 8 (6-14) Blood Urea Nitrogen 20 mg/dL (7-20) Creatinine 0.7 mg/dL (0.6-1.0) Estimated GFR (Cockcroft-Gault) 100.7 Glucose Level 41 mg/dL (70-99) Calcium Level 10.1 mg/dL (8.5-10.1) Total Bilirubin 0.6 mg/dL (0.2-1.0) Direct Bilirubin 0.2 mg/dL (0.0-0.2) Aspartate Amino Transf (AST/SGOT) 35 U/L (15-37) Alanine Aminotransferase (ALT/SGPT) 115 U/L (14-59) Alkaline Phosphatase 153 U/L (46-116) Total Protein 9.1 g/dL (6.4-8.2) Albumin 2.2 g/dL (3.4-5.0) Assessment and Plan Assessmemt and Plan Problems Medical Problems: (1) Acute on chronic respiratory failure Status: Acute (2) Aspiration pneumonia Status: Acute (3) Opiate overdose Status: Acute (4) Respiratory arrest Status: Acute (5) Sepsis Status: Acute Comment Review of Relevant I have reviewed the following items omari (where applicable) has been applied. Labs Laboratory Tests Test 05/11/21 11:47 05/11/21 12:30 05/11/21 17:30 05/12/21 06:25 O2 Saturation 98 % (92-99) Arterial Blood pH 7.34 (7.35-7.45) Arterial Blood pCO2 at Patient Temp 60 mmHg (35-46) Arterial Blood pO2 at Patient Temp 144 mmHg (65-108) Arterial Blood HCO3 32 mmol/L (21-28) Arterial Blood Base Excess 5 mmol/L (-3-3) FiO2 60 Nasal Screen MRSA (PCR) Negative (NEGATIVE) Urine Collection Type Unknown Urine Color Yellow Urine Clarity Clear Urine pH 6.0 (<5.0-8.0) Urine Specific Vivian 1.010 (1.000-1.030) Urine Protein Negative mg/dL (NEG-TRACE) Urine Glucose (UA) Negative mg/dL (NEG) Urine Ketones (Stick) Negative mg/dL (NEG) Urine Blood Negative (NEG) Urine Nitrite Negative (NEG) Urine Bilirubin Negative (NEG) Urine Urobilinogen Dipstick 0.2 mg/dL (0.2 mg/dL) Urine Leukocyte Esterase Small (NEG) Urine RBC 0 /HPF (0-2) Urine WBC 11-20 /HPF (0-4) Urine Squamous Epithelial Cells Mod /LPF Urine Renal Epithelial Cells Occ /LPF Urine Bacteria Few /HPF (0-FEW) White Blood Count 9.9 x10^3/uL (4.0-11.0) Red Blood Count 3.21 x10^6/uL (3.50-5.40) Hemoglobin 10.6 g/dL (12.0-15.5) Hematocrit 30.8 % (36.0-47.0) Mean Corpuscular Volume 96 fL (79-100) Mean Corpuscular Hemoglobin 33 pg (25-35) Mean Corpuscular Hemoglobin Concent 35 g/dL (31-37) Red Cell Distribution Width 16.1 % (11.5-14.5) Platelet Count 317 x10^3/uL (140-400) Neutrophils (%) (Auto) 78 % (31-73) Lymphocytes (%) (Auto) 12 % (24-48) Monocytes (%) (Auto) 7 % (0-9) Eosinophils (%) (Auto) 2 % (0-3) Basophils (%) (Auto) 1 % (0-3) Neutrophils # (Auto) 7.7 x10^3/uL (1.8-7.7) Lymphocytes # (Auto) 1.2 x10^3/uL (1.0-4.8) Monocytes # (Auto) 0.7 x10^3/uL (0.0-1.1) Eosinophils # (Auto) 0.2 x10^3/uL (0.0-0.7) Basophils # (Auto) 0.1 x10^3/uL (0.0-0.2) Sodium Level 142 mmol/L (136-145) Potassium Level 4.5 mmol/L (3.5-5.1) Chloride Level 102 mmol/L (98-107) Carbon Dioxide Level 36 mmol/L (21-32) Anion Gap 4 (6-14) Blood Urea Nitrogen 20 mg/dL (7-20) Creatinine 0.7 mg/dL (0.6-1.0) Estimated GFR (Cockcroft-Gault) 100.7 Glucose Level 83 mg/dL (70-99) Calcium Level 9.4 mg/dL (8.5-10.1) Total Bilirubin 0.5 mg/dL (0.2-1.0) Direct Bilirubin 0.2 mg/dL (0.0-0.2) Aspartate Amino Transf (AST/SGOT) 66 U/L (15-37) Alanine Aminotransferase (ALT/SGPT) 143 U/L (14-59) Alkaline Phosphatase 149 U/L (46-116) C-Reactive Protein, Quantitative 131.9 mg/L (0-3.3) Total Protein 8.3 g/dL (6.4-8.2) Albumin 2.0 g/dL (3.4-5.0) Triglycerides Level 73 mg/dL (0-150) Cholesterol Level 158 mg/dL (0-200) LDL Cholesterol, Calculated 105 mg/dL (0-100) VLDL Cholesterol, Calculated 15 mg/dL (0-40) Non-HDL Cholesterol Calculated 120 mg/dL (0-129) HDL Cholesterol 38 mg/dL (40-60) Cholesterol/HDL Ratio 4.2 Test 05/13/21 06:15 White Blood Count 8.4 x10^3/uL (4.0-11.0) Red Blood Count 3.36 x10^6/uL (3.50-5.40) Hemoglobin 10.9 g/dL (12.0-15.5) Hematocrit 32.6 % (36.0-47.0) Mean Corpuscular Volume 97 fL (79-100) Mean Corpuscular Hemoglobin 33 pg (25-35) Mean Corpuscular Hemoglobin Concent 34 g/dL (31-37) Red Cell Distribution Width 16.2 % (11.5-14.5) Platelet Count 383 x10^3/uL (140-400) Neutrophils (%) (Auto) 73 % (31-73) Lymphocytes (%) (Auto) 19 % (24-48) Monocytes (%) (Auto) 7 % (0-9) Eosinophils (%) (Auto) 1 % (0-3) Basophils (%) (Auto) 1 % (0-3) Neutrophils # (Auto) 6.1 x10^3/uL (1.8-7.7) Lymphocytes # (Auto) 1.6 x10^3/uL (1.0-4.8) Monocytes # (Auto) 0.5 x10^3/uL (0.0-1.1) Eosinophils # (Auto) 0.0 x10^3/uL (0.0-0.7) Basophils # (Auto) 0.0 x10^3/uL (0.0-0.2) Sodium Level 140 mmol/L (136-145) Potassium Level 4.5 mmol/L (3.5-5.1) Chloride Level 98 mmol/L (98-107) Carbon Dioxide Level 34 mmol/L (21-32) Anion Gap 8 (6-14) Blood Urea Nitrogen 20 mg/dL (7-20) Creatinine 0.7 mg/dL (0.6-1.0) Estimated GFR (Cockcroft-Gault) 100.7 Glucose Level 41 mg/dL (70-99) Calcium Level 10.1 mg/dL (8.5-10.1) Total Bilirubin 0.6 mg/dL (0.2-1.0) Direct Bilirubin 0.2 mg/dL (0.0-0.2) Aspartate Amino Transf (AST/SGOT) 35 U/L (15-37) Alanine Aminotransferase (ALT/SGPT) 115 U/L (14-59) Alkaline Phosphatase 153 U/L (46-116) Total Protein 9.1 g/dL (6.4-8.2) Albumin 2.2 g/dL (3.4-5.0) Laboratory Tests Test 05/13/21 06:15 White Blood Count 8.4 x10^3/uL (4.0-11.0) Red Blood Count 3.36 x10^6/uL (3.50-5.40) Hemoglobin 10.9 g/dL (12.0-15.5) Hematocrit 32.6 % (36.0-47.0) Mean Corpuscular Volume 97 fL (79-100) Mean Corpuscular Hemoglobin 33 pg (25-35) Mean Corpuscular Hemoglobin Concent 34 g/dL (31-37) Red Cell Distribution Width 16.2 % (11.5-14.5) Platelet Count 383 x10^3/uL (140-400) Neutrophils (%) (Auto) 73 % (31-73) Lymphocytes (%) (Auto) 19 % (24-48) Monocytes (%) (Auto) 7 % (0-9) Eosinophils (%) (Auto) 1 % (0-3) Basophils (%) (Auto) 1 % (0-3) Neutrophils # (Auto) 6.1 x10^3/uL (1.8-7.7) Lymphocytes # (Auto) 1.6 x10^3/uL (1.0-4.8) Monocytes # (Auto) 0.5 x10^3/uL (0.0-1.1) Eosinophils # (Auto) 0.0 x10^3/uL (0.0-0.7) Basophils # (Auto) 0.0 x10^3/uL (0.0-0.2) Sodium Level 140 mmol/L (136-145) Potassium Level 4.5 mmol/L (3.5-5.1) Chloride Level 98 mmol/L (98-107) Carbon Dioxide Level 34 mmol/L (21-32) Anion Gap 8 (6-14) Blood Urea Nitrogen 20 mg/dL (7-20) Creatinine 0.7 mg/dL (0.6-1.0) Estimated GFR (Cockcroft-Gault) 100.7 Glucose Level 41 mg/dL (70-99) Calcium Level 10.1 mg/dL (8.5-10.1) Total Bilirubin 0.6 mg/dL (0.2-1.0) Direct Bilirubin 0.2 mg/dL (0.0-0.2) Aspartate Amino Transf (AST/SGOT) 35 U/L (15-37) Alanine Aminotransferase (ALT/SGPT) 115 U/L (14-59) Alkaline Phosphatase 153 U/L (46-116) Total Protein 9.1 g/dL (6.4-8.2) Albumin 2.2 g/dL (3.4-5.0) Microbiology 05/11/21 Gram Stain Evaluation - Final, Resulted 05/11/21 Respiratory Culture - Preliminary, Resulted Medications Current Medications Naloxone HCl (Narcan) 0.4 mg STK-MED ONCE .ROUTE ; Start 05/11/21 at 02:51; Stop 05/11/21 at 02:51; Status DC Naloxone HCl (Narcan) 0.4 mg 1X ONCE IV Last administered on 05/11/21at 02:55; Start 05/11/21 at 03:30; Stop 05/11/21 at 03:31; Status DC Sodium Chloride 1,000 ml @ 1,000 mls/hr 1X ONCE IV Last administered on 05/11/21at 03:30; Start 05/11/21 at 03:30; Stop 05/11/21 at 04:29; Status DC Piperacillin Sod/ Tazobactam Sod 4.5 gm/Sodium Chloride 100 ml @ 200 mls/hr 1X ONCE IV ; Start 05/11/21 at 04:00; Stop 05/11/21 at 04:29; Status UNV Piperacillin Sod/ Tazobactam Sod 3.375 gm/Sodium Chloride 50 ml @ 100 mls/hr 1X ONCE IV Last administered on 05/11/21at 04:11; Start 05/11/21 at 04:15; Stop 05/11/21 at 04:44; Status DC Vancomycin HCl 1.25 gm/Sodium Chloride 250 ml @ 166.667 mls/hr 1X ONCE IV ; Start 05/11/21 at 04:15; Stop 05/11/21 at 05:44; Status UNV Vancomycin HCl 1 gm/Sodium Chloride 250 ml @ 250 mls/hr 1X ONCE IV Last administered on 05/11/21at 04:49; Start 05/11/21 at 05:00; Stop 05/11/21 at 05:59; Status DC Sodium Chloride 500 ml @ 500 mls/hr 1X ONCE IV Last administered on 05/11/21at 05:30; Start 05/11/21 at 05:30; Stop 05/11/21 at 06:29; Status DC Sodium Chloride 250 ml @ 250 mls/hr 1X ONCE IV Last administered on 05/11/21at 07:31; Start 05/11/21 at 07:30; Stop 05/11/21 at 08:29; Status DC Naloxone HCl (Narcan) 0.4 mg PRN Q2MIN PRN IV SEE COMMENTS; Start 05/11/21 at 07:00 Acetaminophen (Tylenol) 650 mg PRN Q6HRS PRN PO Headaches, Temp > 101.5'; Start 05/11/21 at 07:30 Lorazepam (Ativan Inj) 0.5 mg PRN Q6HRS PRN IVP ANXIETY / AGITATION; Start 05/11/21 at 07:30 Ondansetron HCl (Zofran) 4 mg PRN Q6HRS PRN IVP NAUSEA/VOMITING; Start 05/11/21 at 07:30 Famotidine (Pepcid Vial) 20 mg DAILY IVP Last administered on 05/13/21at 09:00; Start 05/11/21 at 09:00 Heparin Sodium (Porcine) (Heparin Sodium) 5,000 unit Q12HR SQ Last administered on 05/13/21at 09:16; Start 05/11/21 at 09:00 Sodium Chloride (Normal Saline Flush) 3 ml QSHIFT PRN IV AFTER MEDS AND BLOOD DRAWS; Start 05/11/21 at 07:30 Morphine Sulfate (Morphine Sulfate) 2 mg PRN Q1HR PRN IV SEVERE PAIN Last administered on 05/13/21at 06:43; Start 05/11/21 at 07:30 Fentanyl Citrate (Fentanyl 2ml Vial) 25 mcg PRN Q1HR PRN IV MODERATE PAIN Last administered on 05/12/21at 00:22; Start 05/11/21 at 07:30 Magnesium Hydroxide (Milk Of Magnesia) 2,400 mg PRN Q12HR PRN PO CONSTIPATION; Start 05/11/21 at 07:30 Vancomycin HCl (Vanco Per Pharmacy) 1 each PRN DAILY PRN MC SEE COMMENTS Last administered on 05/12/21at 08:29; Start 05/11/21 at 07:30 Cefepime HCl (Maxipime) 2 gm Q24H IVP Last administered on 05/12/21at 12:00; Start 05/11/21 at 12:00 Metoprolol Tartrate (Lopressor Vial) 5 mg Q6HRS IVP Last administered on 05/13/21at 05:47; Start 05/11/21 at 18:00 Vancomycin HCl 500 mg/Sodium Chloride 100 ml @ 100 mls/hr Q24H IV Last administered on 05/12/21at 19:24; Start 05/12/21 at 09:00 Vancomycin HCl (Vancomycin Trough Level) 1 each 1X ONCE MC ; Start 05/13/21 at 17:00; Stop 05/13/21 at 17:01 Active Scripts Active Reported Ipratropium [place] 0.2 Mg/1 Ml Solution 1 Vial NEB QID Albuterol Sulfate Conc Neb Soln (Albuterol Sulfate) 2.5 Mg/0.5 Ml Vial.neb 1 Vial NEB Q4HRS FENTANYL 12mcg/hr (Fentanyl) 1 Each Patch.td72 1 Patch TP Q3DAYS Oxycodone Hcl Immed.release (Oxycodone Hcl) 10 Mg Tablet 10 Mg PO PRN Q4HRS PRN Metoprolol Tartrate 25 Mg Tablet 25 Mg PO BID Losartan Potassium 50 Mg Tablet 25 Mg PO DAILY Synthroid (Levothyroxine Sodium) 100 Mcg Tablet 100 Tab PO DAILY Vitals/I & O Vital Sign - Last 24 Hours 05/12/21 05/12/21 05/12/21 05/12/21 11:00 11:34 12:45 16:00 Temp 98.0 98.0 98.0 98.0 Pulse 92 92 91 Resp 19 22 22 B/P (MAP) 150/76 (100) 150/76 154/81 (105) Pulse Ox 95 99 O2 Delivery Tracheal Collar Tracheal Collar Tracheal Collar O2 Flow Rate 10.0 05/12/21 05/12/21 05/12/21 05/12/21 18:08 18:09 19:00 19:23 Temp 98.5 98.5 Pulse 91 89 Resp 19 16 B/P (MAP) 154/81 132/70 (90) Pulse Ox 93 90 93 O2 Delivery Tracheal Collar O2 Flow Rate 10.0 05/12/21 05/12/21 05/12/21 05/13/21 20:17 20:27 23:00 01:02 Temp 98.4 98.4 Pulse 96 96 Resp 16 B/P (MAP) 158/88 (111) 158/88 Pulse Ox 94 92 O2 Delivery Tracheal Collar Trach Collar O2 Flow Rate 10.0 10.0 05/13/21 05/13/21 05/13/21 05/13/21 03:00 05:47 06:43 07:00 Temp 97.8 98.0 97.8 98.0 Pulse 95 95 90 Resp 16 18 20 B/P (MAP) 161/88 (112) 161/88 159/84 (109) Pulse Ox 98 98 97 O2 Delivery Tracheal Collar O2 Flow Rate 10.0 10.0 05/13/21 07:25 Resp 18 Pulse Ox 98 O2 Flow Rate 10.0 Intake and Output 05/12/21 05/12/21 05/13/21 15:00 23:00 07:00 Intake Total 0 ml 0 ml Output Total 400 ml 300 ml Balance -400 ml 0 ml -300 ml Nutrition Consultation Dietary Evaluation: Recommendations by RD: Dietary education by RD, Add supplement feedings Comments: continue nutrition via PEG jevity 1.5 bolus 237 ml (1 carton)4 x day flushes: 175 ml with each bolus Expected Outcomes/Goals: tolerate bolus TF Malnutrition Findings: Muscle Mass (Severe): Severe Depletion Body Fat Depletion (Non Severe: Mod to Severe Weight Status: Underweight Justicifation of Admission Dx: Justifications for Admission: Justification of Admission Dx: Yes Sepsis: Infection RACHEL MATSON MD May 13, 2021 10:35
[2021-05-13 11:00] VITALS: BP 118/63
[2021-05-13] MEDS: CEFEPIME HCL IV Push 2 GM VIAL. IVP SCH (11:55)
[2021-05-13 15:57] VITALS: BP 125/68
[2021-05-13 17:23] LABS: VANC TR 7.2 mcg/mL (10.0-20.0)
[2021-05-13] MEDS: VANCOMYCIN PER PHARMACY MC PRN (18:29)
--- NOTE | 2021-05-13 18:39 | NUR ---
Pharmacy Vancomycin Dosing Note S:Consulted to monitor and dose vancomycin started 05/11/21. O:CAROLYN CALVIN is a 66 year old F with HCAP . Height: 5 feet, 7 inches Weight: 40.6 kg [place] Body Weight: 61.60 Adjusted Body Weight: 53.20 Dosing Weight: Actual Other Antibiotics: Cefepime LABS: Last BUN: 20 Last Creatinine: 0.7 Creatinine Clearance: 35 mL/min Last WBC: 8.4 Last Procalcitonin: 0.79 Tmax (past 24 hours): 98.6 Microbiology: - I/O: 0/700 Drug Levels: Last Trough level: on 05/13/21 at 1645 Last dose given 05/12/21 at 1924 Vancomycin Dosing: Loading Dose: 1000 mg x1 Dosing Weight: Actual Target Trough: 15-20 A: Based on trough of 7.2: P: 1. Change Vancomycin to 500 mg IV q12h. 2. Follow up Trough level as needed. 3. Pharmacy will continue to monitor, follow and adjust therapy as needed. Humberto Perez [facility]MERLY [facility] [place], 05/13/21 2955
[2021-05-13] MEDS: VANCOMYCIN 500 MG in IV NORMAL SALINE 100ML 100 ML IV SCH (18:41)
[2021-05-13 19:44] VITALS: BP 140/72
[2021-05-13 23:14] VITALS: BP 155/71
[2021-05-14] MEDS: METOPROLOL IV PUSH 5 MG/5 ML VIAL. IVP SCH ×5 (00:02→23:37)
[2021-05-14] MEDS: MORPHINE SULFATE 2 MG/ML INJ. IV PRN ×3 (00:38→23:38)
[2021-05-14 04:09] VITALS: BP 151/80
[2021-05-14 07:00] VITALS: BP 159/80
--- NOTE | 2021-05-14 07:40 | PDOC ---
PULMONARY PROGRESS NOTES DATE: 05/14/21 TIME: 07:40 Subjective PT NOT MORE SOA WANTS TO GO HOME Vitals Vital Signs Date Time Temp Pulse Resp B/P (MAP) Pulse Ox O2 Delivery O2 Flow Rate FiO2 05/14/21 05:53 81 151/80 05/14/21 04:09 97.8 16 96 Tracheal Collar 10.0 97.8 ROS: No Nausea, No Chest Pain, No Abdominal Pain, No Increase Cough General: Alert, No acute distress Lungs: Other (Anterior rhonchi) Cardiovascular: S1 Abdomen: Soft Neuro Exam: Alert Extremities: No Edema Skin: Warm Labs Laboratory Tests Test 05/13/21 06:15 05/13/21 16:45 White Blood Count 8.4 x10^3/uL (4.0-11.0) Red Blood Count 3.36 x10^6/uL (3.50-5.40) Hemoglobin 10.9 g/dL (12.0-15.5) Hematocrit 32.6 % (36.0-47.0) Mean Corpuscular Volume 97 fL (79-100) Mean Corpuscular Hemoglobin 33 pg (25-35) Mean Corpuscular Hemoglobin Concent 34 g/dL (31-37) Red Cell Distribution Width 16.2 % (11.5-14.5) Platelet Count 383 x10^3/uL (140-400) Neutrophils (%) (Auto) 73 % (31-73) Lymphocytes (%) (Auto) 19 % (24-48) Monocytes (%) (Auto) 7 % (0-9) Eosinophils (%) (Auto) 1 % (0-3) Basophils (%) (Auto) 1 % (0-3) Neutrophils # (Auto) 6.1 x10^3/uL (1.8-7.7) Lymphocytes # (Auto) 1.6 x10^3/uL (1.0-4.8) Monocytes # (Auto) 0.5 x10^3/uL (0.0-1.1) Eosinophils # (Auto) 0.0 x10^3/uL (0.0-0.7) Basophils # (Auto) 0.0 x10^3/uL (0.0-0.2) Sodium Level 140 mmol/L (136-145) Potassium Level 4.5 mmol/L (3.5-5.1) Chloride Level 98 mmol/L (98-107) Carbon Dioxide Level 34 mmol/L (21-32) Anion Gap 8 (6-14) Blood Urea Nitrogen 20 mg/dL (7-20) Creatinine 0.7 mg/dL (0.6-1.0) Estimated GFR (Cockcroft-Gault) 100.7 Glucose Level 41 mg/dL (70-99) Calcium Level 10.1 mg/dL (8.5-10.1) Total Bilirubin 0.6 mg/dL (0.2-1.0) Direct Bilirubin 0.2 mg/dL (0.0-0.2) Aspartate Amino Transf (AST/SGOT) 35 U/L (15-37) Alanine Aminotransferase (ALT/SGPT) 115 U/L (14-59) Alkaline Phosphatase 153 U/L (46-116) Total Protein 9.1 g/dL (6.4-8.2) Albumin 2.2 g/dL (3.4-5.0) Vancomycin Level Trough 7.2 mcg/mL (10.0-20.0) Vancomycin Last Dose Date 05/12/21 Vancomycin Last Dose Time 1730 Laboratory Tests Test 05/13/21 16:45 Vancomycin Level Trough 7.2 mcg/mL (10.0-20.0) Vancomycin Last Dose Date 05/12/21 Vancomycin Last Dose Time 1730 Medications Active Scripts Medications Dose Route/Sig Max Daily Dose Days Date Category Ipratropium [place] 0.2 Mg/1 Ml Solution 1 Vial NEB QID 05/11/21 Reported Albuterol Sulfate Conc Neb Soln (Albuterol Sulfate) 2.5 Mg/0.5 Ml Vial.neb 1 Vial NEB Q4HRS 05/11/21 Reported FENTANYL 12mcg/hr (Fentanyl) 1 Each Patch.td72 1 Patch TP Q3DAYS 05/11/21 Reported Oxycodone Hcl Immed.release (Oxycodone Hcl) 10 Mg Tablet 10 Mg PO PRN Q4HRS PRN 05/11/21 Reported Metoprolol Tartrate 25 Mg Tablet 25 Mg PO BID 05/11/21 Reported Losartan Potassium 50 Mg Tablet 25 Mg PO DAILY 05/11/21 Reported Synthroid (Levothyroxine Sodium) 100 Mcg Tablet 100 Tab PO DAILY 05/11/21 Reported Impression . 1. [id number] hypoxic and hypercapnic respiratory failure secondary to toxic encephalopathy and likely aspiration pneumonitis. 2. Low-grade fever and mild leukocytosis, secondary to aspiration the 3. Lactic acidosis with early sepsis secondary to suspected aspiration pneumonia. 4. Acute kidney injury. 5. Moderate to severe protein-calorie malnutrition. 6. History of chronic respiratory failure with chronic tracheostomy and PEG tube placement. Plan . 05/14 OK OT DC HOME ON [facility] D/W RN WILL NOTIFY DR MATSON Updated 05/13 Continue current antibiotics Continue trach shield DVT prophylaxis Follow-up on cultures 1. Continue on trach shield. With as needed suction. 2. Followup ABGs. As needed. 3. Continue broad-spectrum antibiotic. 4. Tracheostomy secretion for C and S.( Gram positive rods/ cocci) , Follow final cultures 5. Heparin for DVT prophylaxis. 6. Follow all the cultures. 7. Discussed with RN 8. Avoid hyperoxia. KENNY KINGSTON MD May 14, 2021 07:40
[2021-05-14 08:37] LABS: BASO # 0.1 x10^3/uL (0.0-0.2); BASO % 1 % (0-3); EOS # 0.2 x10^3/uL (0.0-0.7); EOS % 3 % (0-3); HEMOGLOBIN 11.3 g/dL (12.0-15.5); LYMPH # 1.6 x10^3/uL (1.0-4.8); LYMPH % 22 % (24-48); MEAN CORPUSCULAR HEMOGLOBIN 33 pg (25-35); MEAN CORPUSCULAR HGB CONC 34 g/dL (31-37); MEAN CORPUSCULAR VOLUME 97 fL (79-100); MONO # 0.5 x10^3/uL (0.0-1.1); MONO % 7 % (0-9); NEUT % 68 % (31-73); PLATELET COUNT 405 x10^3/uL (140-400); RED BLOOD COUNT 3.41 x10^6/uL (3.50-5.40); WHITE BLOOD COUNT 7.5 x10^3/uL (4.0-11.0)
[2021-05-14 09:08] LABS: ALBUMIN 2.1 g/dL (3.4-5.0); CALCIUM 9.7 mg/dL (8.5-10.1); CREATININE 0.6 mg/dL (0.6-1.0); DIRECT BILIRUBIN 0.2 mg/dL (0.0-0.2); GFR 120.3; POTASSIUM 4.3 mmol/L (3.5-5.1); TOTAL BILIRUBIN 0.4 mg/dL (0.2-1.0); TOTAL PROTEIN 8.9 g/dL (6.4-8.2)
[2021-05-14] MEDS: FAMOTIDINE 20 MG/2 ML VIAL IVP SCH (09:19)
[2021-05-14] MEDS: HEPARIN for SUB-Q USE 5,000 UNIT/ML VIAL. SQ SCH ×2 (09:34→20:44)
[2021-05-14 11:00] VITALS: BP 114/56
--- NOTE | 2021-05-14 11:22 | PDOC ---
PROGRESS NOTES Date of Service: DATE: 05/14/21 TIME: 11:21 Chief Complaint Chief Complaint Assessment/Plan Assessment/Plan Sepsis Acute kidney injury. Moderate to severe protein-calorie malnutrition. History of chronic respiratory failure with chronic tracheostomy and PEG tube placement. Respiratory failure with hypoxia / Patchy bilateral interstitial and alveolar opacities could reflect pneumonia or pulmonary edema Healthcare associated pneumonia due to possibly gram-positive or possibly gram- positive organism Aspiration pneumonia Oxycodone overdose DEIRDRE due to vasomotor nephropathy Lactic acidosis Transaminitis Severe malnutrition COVID-19 PUI Tracheostomy secretion for C and S.( Gram positive rods/ cocci) , Follow final cultures Heparin for DVT prophylaxis. Plan: need for PPV and frequent suctioning Consultation placed to pulmonology Will add additional sepsis fluid bolus Continue treatment of pneumonia with vancomycin and cefepime Transaminitis possibly secondary to shock liver; will provide IV fluids and continue to monitor. Narcan as needed Based admission labs kidney function currently consistent with CKD 3b; no baseline kidney function labs to compare. Provide IV fluids and continue to monitor. Will consult nephrology if no significant improvement. MRSA pending COVID-19 pending Consult placed to nutrition Resume home medications FEN - PEG tube feeds per nutrition PPX - Heparin FULL CODE Dispo - inpatient for above Surrogate decision maker is her son (Gavino Wharton) Critical care time 32 minutes spent reviewing charts, reviewing labs, reviewing imaging, discussion with ED personnel and ED attending physician. Discontinue ventilator and we will leave her on trach shield. Mental status has improved. Followup ABGs. Continue broad-spectrum antibiotic. Tracheostomy secretion for C and S. Heparin for DVT prophylaxis. PT/OT Tracheostomy secretion for C and S.( Gram positive rods/ cocci) , Heparin DVT prophylaxis. GRAM STAIN EVALUATION Final Final This specimen is of good quality and is acceptable for routine bacterial culture. Culture results to follow. GRAM NEGATIVE RODS:RARE GRAM POSITIVE RODS:FEW GRAM POSITIVE COCCI:RARE Justifications for Admission Justifications for Admission Other Justification History of Present Illness History of Present Illness Identification/Chief Complaint Chief Complaint AMS Source Source: Chart review History of Present Illness History of Present Illness Ms. Art De La Cruz is a 66-year-old tracheostomy and PEG tube dependent patient, who presents to the ED due to altered mental status. She recent return home from [facility] and was found down by her son. Patient is a poor historian due to much information is obtained through son's report to ED personnel. Reportedly found down by her son early this morning with unknown downtime. Prior to this episode her son reported to ED personnel that 20 mg oxycodone pill was crushed and administered through her feeding tube. Upon EMS arrival she was not responsive with GCS of 3. She was initially bagged by EMS but she would intermittently desaturate to around 70% on room air. Upon arrival in the ED she was tachycardic and tachypneic. Her oxygen saturation improved with Narcan. Labs on arrival showed WBC 10.3, hemoglobin 10.6, hematocrit 31.8, BUN 37, creatinine 1.7, CBG 151, lactic acid 5.6, AST 82, ALT 195, alkaline phosphatase 173, albumin 2.4. Chest x-ray showed patchy bilateral interstitial and alveolar opacities possibly reflective of pneumonia or pulmonary edema. She received broad-spectrum antibiotics and IV fluids in the ED. She reportedly has been vaccinated against COVID-19. Will admit to ICU for further medical management. Past Medical History Past Medical History HTN, tracheostomy, PVD, PEG tube dependence (further history unable to obtain due to clinical condition) Past Surgical History Past Surgical History Hysterectomy, bilateral leg stents Family History Family History Unable to obtain at this time due to clinical condition Social History Smoke: 1 pack per day ALCOHOL: none Drugs: None Current Problem List Problem List Problems Medical Problems: (1) Acute on chronic respiratory failure Status: Acute (2) Aspiration pneumonia Status: Acute (3) Opiate overdose Status: Acute (4) Respiratory arrest Status: Acute (5) Sepsis Status: Acute Current Medications Current Medications Current Medications Naloxone HCl (Narcan) 0.4 mg STK-MED ONCE .ROUTE ; Start 05/11/21 at 02:51; Stop 05/11/21 at 02:51; Status DC Naloxone HCl (Narcan) 0.4 mg 1X ONCE IV Last administered on 05/11/21at 02:55; Start 05/11/21 at 03:30; Stop 05/11/21 at 03:31; Status DC Sodium Chloride 1,000 ml @ 1,000 mls/hr 1X ONCE IV Last administered on 05/11/21at 03:30; Start 05/11/21 at 03:30; Stop 05/11/21 at 04:29; Status DC Piperacillin Sod/ Tazobactam Sod 4.5 gm/Sodium Chloride 100 ml @ 200 mls/hr 1X ONCE IV ; Start 05/11/21 at 04:00; Stop 05/11/21 at 04:29; Status UNV Piperacillin Sod/ Tazobactam Sod 3.375 gm/Sodium Chloride 50 ml @ 100 mls/hr 1X ONCE IV Last administered on 05/11/21at 04:11; Start 05/11/21 at 04:15; Stop 05/11/21 at 04:44; Status DC Vancomycin HCl 1.25 gm/Sodium Chloride 250 ml @ 166.667 mls/hr 1X ONCE IV ; Start 05/11/21 at 04:15; Stop 05/11/21 at 05:44; Status UNV Vancomycin HCl 1 gm/Sodium Chloride 250 ml @ 250 mls/hr 1X ONCE IV Last administered on 05/11/21at 04:49; Start 05/11/21 at 05:00; Stop 05/11/21 at 05:59; Status DC Sodium Chloride 500 ml @ 500 mls/hr 1X ONCE IV Last administered on 05/11/21at 05:30; Start 05/11/21 at 05:30; Stop 05/11/21 at 06:29 Allergies Allergies: Coded Allergies: codeine (Verified Allergy, Severe, 10/09/14) ROS Review of System Unable to obtain at this time due to clinical condition 05-13 Acute kidney injury. Moderate to severe protein-calorie malnutrition. History of chronic respiratory failure with chronic tracheostomy and PEG tube placement. Respiratory failure with hypoxia / Patchy bilateral interstitial and alveolar opacities could reflect pneumonia or pulmonary edema Healthcare associated pneumonia due to possibly gram-positive or possibly gram- positive organism Aspiration pneumonia Oxycodone overdose DEIRDRE due to vasomotor nephropathy Lactic acidosis Transaminitis Severe malnutrition COVID-19 PUI Tracheostomy secretion for C and S.( Gram positive rods/ cocci) , Follow final cultures Heparin for DVT prophylaxis. Plan: need for PPV and frequent suctioning Consultation placed to pulmonology Will add additional sepsis fluid bolus Continue treatment of pneumonia with vancomycin and cefepime Transaminitis possibly secondary to shock liver; will provide IV fluids and continue to monitor. Narcan as needed Based admission labs kidney function currently consistent with CKD 3b; no baseline kidney function labs to compare. Provide IV fluids and continue to monitor. Will consult nephrology if no significant improvement. MRSA pending COVID-19 pending Consult placed to nutrition Resume home medications FEN - PEG tube feeds per nutrition PPX - Heparin FULL CODE Dispo - inpatient for above Surrogate decision maker is her son (Gavino Wharton) Critical care time 32 minutes spent reviewing charts, reviewing labs, reviewing imaging, Discontinue ventilator and we will leave her on trach shield. Mental status has improved. Followup ABGs. Continue broad-spectrum antibiotic. Tracheostomy secretion for C and S. Heparin for DVT prophylaxis. PT/OT Tracheostomy secretion for C and S.( Gram positive rods/ cocci) , Heparin DVT prophylaxis. GRAM STAIN EVALUATION Final Final This specimen is of good quality and is acceptable for routine bacterial culture. Culture results to follow. GRAM NEGATIVE RODS:RARE GRAM POSITIVE RODS:FEW GRAM POSITIVE COCCI:RARE 05-14 Acute kidney injury. Moderate to severe protein-calorie malnutrition. History of chronic respiratory failure with chronic tracheostomy and PEG tube placement. Respiratory failure with hypoxia / Patchy bilateral interstitial and alveolar opacities could reflect pneumonia or pulmonary edema Healthcare associated pneumonia due to possibly gram-positive or possibly gram- positive organism Aspiration pneumonia Oxycodone overdose DEIRDRE due to vasomotor nephropathy Lactic acidosis Transaminitis Severe malnutrition HEPATITIS DX PANEL 05-14 Tracheostomy secretion for C and S.( Gram positive rods/ cocci) , Follow final cultures on trach shield Heparin for DVT prophylaxis. need for PPV and frequent suctioning Consultation placed to pulmonology COVID 19 NEG PCR Continue treatment of pneumonia with vancomycin and cefepime Transaminitis possibly secondary to shock liver; will provide IV fluids and continue to monitor. Narcan as needed Based admission labs kidney function currently consistent with CKD 3b; no baseline kidney function labs to compare. Provide IV fluids and continue to monitor. Will consult nephrology if no significant improvement. MRSA Consult placed to nutrition Resume home medications FEN - PEG tube feeds per nutrition PPX - Heparin FULL CODE Dispo - inpatient for above Surrogate decision maker is her son (Gavino Wharton) Discontinue ventilator and we will leave her on trach shield. Mental status has improved. Followup ABGs. Continue broad-spectrum antibiotic. Tracheostomy secretion for C and S. Heparin for DVT prophylaxis. PT/OT Tracheostomy secretion for C and S.( Gram positive rods/ cocci) , Heparin DVT prophylaxis. abd ida, GI CONSULT 05-14 , FE PANEL 05-14 D/C PLANNING FOR HOME HEALTH 05-15 pt desires GRAM STAIN EVALUATION Final Final This specimen is of good quality and is acceptable for routine bacterial culture. Culture results to follow. GRAM NEGATIVE RODS:RARE GRAM POSITIVE RODS:FEW Vitals Vitals Vital Signs Date Time Temp Pulse Resp B/P (MAP) Pulse Ox O2 Delivery O2 Flow Rate FiO2 05/14/21 09:23 19 93 Tracheal Collar 10.0 05/14/21 07:00 98.0 83 159/80 (106) 98.0 Physical Exam Physical Exam Physical Exam Physical Exam General: Alert, Cooperative, mild distress, frail-appearing HEENT: PERRLA, EOMI Lungs: Bilateral rales, Normal air movement, tracheostomy tube in place Heart: Tachycardic, no murmurs Cardiovascular: S1, S2 Abdomen: Normal bowel sounds, firm, PEG tube in place with surrounding tenderness Extremities: No clubbing, No cyanosis Skin: No rashes, No significant lesion Neuro: Normal tone, Sensation intact Psych/Mental Status: Mental status NL, Mood NL General: Cooperative Lungs: Other (Anterior rhonchi) Abdomen: Soft Extremities: No cyanosis Labs LABS PATIENT: CAROLYN CALVIN LACCOUNT: [id number] : 1955 LOCATION: ER AGE: 66 SEX: F EXAM STATUS: REG ER ORD. PHYSICIAN: JACQUIE FARIAS MD REASON: trach with large amount of mucous secretions PROCEDURE: CHEST AP ONLY EXAM: XR CHEST 1V 05/11/2021 3:07 AM CLINICAL INDICATION: Trach with large amount of mucous secretions COMPARISON: None TECHNIQUE: AP upright view of the chest FINDINGS: A tracheostomy tube terminates below the clavicular heads, 3 synovitis of the jassi. Heart is normal in size. Lungs are well-expanded. There are patchy bilateral interstitial and alveolar opacities opacities. Pleural parenchymal thickening in the apices. No pleural effusion or pneumothorax. No acute osseous abnormality.. IMPRESSION: Patchy bilateral interstitial and alveolar opacities could reflect pneumonia or pulmonary edema. Electronically signed by: Ana Adan MD (05/11/2021 4:17 AM) [id number] DICTATED and SIGNED BY: ANA ADAN MD DATE: 05/11/21 [id number] Laboratory Tests Test 05/13/21 16:45 05/14/21 08:07 Vancomycin Level Trough 7.2 mcg/mL (10.0-20.0) Vancomycin Last Dose Date 05/12/21 Vancomycin Last Dose Time 1730 White Blood Count 7.5 x10^3/uL (4.0-11.0) Red Blood Count 3.41 x10^6/uL (3.50-5.40) Hemoglobin 11.3 g/dL (12.0-15.5) Hematocrit 33.0 % (36.0-47.0) Mean Corpuscular Volume 97 fL (79-100) Mean Corpuscular Hemoglobin 33 pg (25-35) Mean Corpuscular Hemoglobin Concent 34 g/dL (31-37) Red Cell Distribution Width 16.0 % (11.5-14.5) Platelet Count 405 x10^3/uL (140-400) Neutrophils (%) (Auto) 68 % (31-73) Lymphocytes (%) (Auto) 22 % (24-48) Monocytes (%) (Auto) 7 % (0-9) Eosinophils (%) (Auto) 3 % (0-3) Basophils (%) (Auto) 1 % (0-3) Neutrophils # (Auto) 5.0 x10^3/uL (1.8-7.7) Lymphocytes # (Auto) 1.6 x10^3/uL (1.0-4.8) Monocytes # (Auto) 0.5 x10^3/uL (0.0-1.1) Eosinophils # (Auto) 0.2 x10^3/uL (0.0-0.7) Basophils # (Auto) 0.1 x10^3/uL (0.0-0.2) Sodium Level 144 mmol/L (136-145) Potassium Level 4.3 mmol/L (3.5-5.1) Chloride Level 105 mmol/L (98-107) Carbon Dioxide Level 38 mmol/L (21-32) Anion Gap 1 (6-14) Blood Urea Nitrogen 20 mg/dL (7-20) Creatinine 0.6 mg/dL (0.6-1.0) Estimated GFR (Cockcroft-Gault) 120.3 Glucose Level 102 mg/dL (70-99) Calcium Level 9.7 mg/dL (8.5-10.1) Total Bilirubin 0.4 mg/dL (0.2-1.0) Direct Bilirubin 0.2 mg/dL (0.0-0.2) Aspartate Amino Transf (AST/SGOT) 35 U/L (15-37) Alanine Aminotransferase (ALT/SGPT) 84 U/L (14-59) Alkaline Phosphatase 143 U/L (46-116) Total Protein 8.9 g/dL (6.4-8.2) Albumin 2.1 g/dL (3.4-5.0) Assessment and Plan Assessmemt and Plan Problems Medical Problems: (1) Acute on chronic respiratory failure Status: Acute (2) Aspiration pneumonia Status: Acute (3) Opiate overdose Status: Acute (4) Respiratory arrest Status: Acute (5) Sepsis Status: Acute Comment Review of Relevant I have reviewed the following items omari (where applicable) has been applied. Labs Laboratory Tests Test 05/13/21 06:15 05/13/21 16:45 05/14/21 08:07 White Blood Count 8.4 x10^3/uL (4.0-11.0) 7.5 x10^3/uL (4.0-11.0) Red Blood Count 3.36 x10^6/uL (3.50-5.40) 3.41 x10^6/uL (3.50-5.40) Hemoglobin 10.9 g/dL (12.0-15.5) 11.3 g/dL (12.0-15.5) Hematocrit 32.6 % (36.0-47.0) 33.0 % (36.0-47.0) Mean Corpuscular Volume 97 fL (79-100) 97 fL (79-100) Mean Corpuscular Hemoglobin 33 pg (25-35) 33 pg (25-35) Mean Corpuscular Hemoglobin Concent 34 g/dL (31-37) 34 g/dL (31-37) Red Cell Distribution Width 16.2 % (11.5-14.5) 16.0 % (11.5-14.5) Platelet Count 383 x10^3/uL (140-400) 405 x10^3/uL (140-400) Neutrophils (%) (Auto) 73 % (31-73) 68 % (31-73) Lymphocytes (%) (Auto) 19 % (24-48) 22 % (24-48) Monocytes (%) (Auto) 7 % (0-9) 7 % (0-9) Eosinophils (%) (Auto) 1 % (0-3) 3 % (0-3) Basophils (%) (Auto) 1 % (0-3) 1 % (0-3) Neutrophils # (Auto) 6.1 x10^3/uL (1.8-7.7) 5.0 x10^3/uL (1.8-7.7) Lymphocytes # (Auto) 1.6 x10^3/uL (1.0-4.8) 1.6 x10^3/uL (1.0-4.8) Monocytes # (Auto) 0.5 x10^3/uL (0.0-1.1) 0.5 x10^3/uL (0.0-1.1) Eosinophils # (Auto) 0.0 x10^3/uL (0.0-0.7) 0.2 x10^3/uL (0.0-0.7) Basophils # (Auto) 0.0 x10^3/uL (0.0-0.2) 0.1 x10^3/uL (0.0-0.2) Sodium Level 140 mmol/L (136-145) 144 mmol/L (136-145) Potassium Level 4.5 mmol/L (3.5-5.1) 4.3 mmol/L (3.5-5.1) Chloride Level 98 mmol/L (98-107) 105 mmol/L (98-107) Carbon Dioxide Level 34 mmol/L (21-32) 38 mmol/L (21-32) Anion Gap 8 (6-14) 1 (6-14) Blood Urea Nitrogen 20 mg/dL (7-20) 20 mg/dL (7-20) Creatinine 0.7 mg/dL (0.6-1.0) 0.6 mg/dL (0.6-1.0) Estimated GFR (Cockcroft-Gault) 100.7 120.3 Glucose Level 41 mg/dL (70-99) 102 mg/dL (70-99) Calcium Level 10.1 mg/dL (8.5-10.1) 9.7 mg/dL (8.5-10.1) Total Bilirubin 0.6 mg/dL (0.2-1.0) 0.4 mg/dL (0.2-1.0) Direct Bilirubin 0.2 mg/dL (0.0-0.2) 0.2 mg/dL (0.0-0.2) Aspartate Amino Transf (AST/SGOT) 35 U/L (15-37) 35 U/L (15-37) Alanine Aminotransferase (ALT/SGPT) 115 U/L (14-59) 84 U/L (14-59) Alkaline Phosphatase 153 U/L (46-116) 143 U/L (46-116) Total Protein 9.1 g/dL (6.4-8.2) 8.9 g/dL (6.4-8.2) Albumin 2.2 g/dL (3.4-5.0) 2.1 g/dL (3.4-5.0) Vancomycin Level Trough 7.2 mcg/mL (10.0-20.0) Vancomycin Last Dose Date 05/12/21 Vancomycin Last Dose Time 173 Laboratory Tests Test 05/13/21 16:45 05/14/21 08:07 Vancomycin Level Trough 7.2 mcg/mL (10.0-20.0) Vancomycin Last Dose Date 05/12/21 Vancomycin Last Dose Time 1730 White Blood Count 7.5 x10^3/uL (4.0-11.0) Red Blood Count 3.41 x10^6/uL (3.50-5.40) Hemoglobin 11.3 g/dL (12.0-15.5) Hematocrit 33.0 % (36.0-47.0) Mean Corpuscular Volume 97 fL (79-100) Mean Corpuscular Hemoglobin 33 pg (25-35) Mean Corpuscular Hemoglobin Concent 34 g/dL (31-37) Red Cell Distribution Width 16.0 % (11.5-14.5) Platelet Count 405 x10^3/uL (140-400) Neutrophils (%) (Auto) 68 % (31-73) Lymphocytes (%) (Auto) 22 % (24-48) Monocytes (%) (Auto) 7 % (0-9) Eosinophils (%) (Auto) 3 % (0-3) Basophils (%) (Auto) 1 % (0-3) Neutrophils # (Auto) 5.0 x10^3/uL (1.8-7.7) Lymphocytes # (Auto) 1.6 x10^3/uL (1.0-4.8) Monocytes # (Auto) 0.5 x10^3/uL (0.0-1.1) Eosinophils # (Auto) 0.2 x10^3/uL (0.0-0.7) Basophils # (Auto) 0.1 x10^3/uL (0.0-0.2) Sodium Level 144 mmol/L (136-145) Potassium Level 4.3 mmol/L (3.5-5.1) Chloride Level 105 mmol/L (98-107) Carbon Dioxide Level 38 mmol/L (21-32) Anion Gap 1 (6-14) Blood Urea Nitrogen 20 mg/dL (7-20) Creatinine 0.6 mg/dL (0.6-1.0) Estimated GFR (Cockcroft-Gault) 120.3 Glucose Level 102 mg/dL (70-99) Calcium Level 9.7 mg/dL (8.5-10.1) Total Bilirubin 0.4 mg/dL (0.2-1.0) Direct Bilirubin 0.2 mg/dL (0.0-0.2) Aspartate Amino Transf (AST/SGOT) 35 U/L (15-37) Alanine Aminotransferase (ALT/SGPT) 84 U/L (14-59) Alkaline Phosphatase 143 U/L (46-116) Total Protein 8.9 g/dL (6.4-8.2) Albumin 2.1 g/dL (3.4-5.0) Microbiology 05/11/21 Gram Stain Evaluation - Final, Resulted 05/11/21 Respiratory Culture - Preliminary, Resulted Medications Current Medications Naloxone HCl (Narcan) 0.4 mg STK-MED ONCE .ROUTE ; Start 05/11/21 at 02:51; Stop 05/11/21 at 02:51; Status DC Naloxone HCl (Narcan) 0.4 mg 1X ONCE IV Last administered on 05/11/21at 02:55; Start 05/11/21 at 03:30; Stop 05/11/21 at 03:31; Status DC Sodium Chloride 1,000 ml @ 1,000 mls/hr 1X ONCE IV Last administered on 05/11/21at 03:30; Start 05/11/21 at 03:30; Stop 05/11/21 at 04:29; Status DC Piperacillin Sod/ Tazobactam Sod 4.5 gm/Sodium Chloride 100 ml @ 200 mls/hr 1X ONCE IV ; Start 05/11/21 at 04:00; Stop 05/11/21 at 04:29; Status UNV Piperacillin Sod/ Tazobactam Sod 3.375 gm/Sodium Chloride 50 ml @ 100 mls/hr 1X ONCE IV Last administered on 05/11/21at 04:11; Start 05/11/21 at 04:15; Stop 05/11/21 at 04:44; Status DC Vancomycin HCl 1.25 gm/Sodium Chloride 250 ml @ 166.667 mls/hr 1X ONCE IV ; Start 05/11/21 at 04:15; Stop 05/11/21 at 05:44; Status UNV Vancomycin HCl 1 gm/Sodium Chloride 250 ml @ 250 mls/hr 1X ONCE IV Last administered on 05/11/21at 04:49; Start 05/11/21 at 05:00; Stop 05/11/21 at 05:59; Status DC Sodium Chloride 500 ml @ 500 mls/hr 1X ONCE IV Last administered on 05/11/21at 05:30; Start 05/11/21 at 05:30; Stop 05/11/21 at 06:29; Status DC Sodium Chloride 250 ml @ 250 mls/hr 1X ONCE IV Last administered on 05/11/21at 07:31; Start 05/11/21 at 07:30; Stop 05/11/21 at 08:29; Status DC Naloxone HCl (Narcan) 0.4 mg PRN Q2MIN PRN IV SEE COMMENTS; Start 05/11/21 at 07:00 Acetaminophen (Tylenol) 650 mg PRN Q6HRS PRN PO Headaches, Temp > 101.5'; Start 05/11/21 at 07:30 Lorazepam (Ativan Inj) 0.5 mg PRN Q6HRS PRN IVP ANXIETY / AGITATION; Start 05/11/21 at 07:30 Ondansetron HCl (Zofran) 4 mg PRN Q6HRS PRN IVP NAUSEA/VOMITING Last administered on 05/13/21at 21:36; Start 05/11/21 at 07:30 Famotidine (Pepcid Vial) 20 mg DAILY IVP Last administered on 05/14/21at 09:19; Start 05/11/21 at 09:00 Heparin Sodium (Porcine) (Heparin Sodium) 5,000 unit Q12HR SQ Last administered on 05/14/21at 09:34; Start 05/11/21 at 09:00 Sodium Chloride (Normal Saline Flush) 3 ml QSHIFT PRN IV AFTER MEDS AND BLOOD DRAWS; Start 05/11/21 at 07:30 Morphine Sulfate (Morphine Sulfate) 2 mg PRN Q1HR PRN IV SEVERE PAIN Last administered on 05/14/21at 09:23; Start 05/11/21 at 07:30 Fentanyl Citrate (Fentanyl 2ml Vial) 25 mcg PRN Q1HR PRN IV MODERATE PAIN Last administered on 05/12/21at 00:22; Start 05/11/21 at 07:30 Magnesium Hydroxide (Milk Of Magnesia) 2,400 mg PRN Q12HR PRN PO CONSTIPATION; Start 05/11/21 at 07:30 Vancomycin HCl (Vanco Per Pharmacy) 1 each PRN DAILY PRN MC SEE COMMENTS Last administered on 05/13/21at 18:29; Start 05/11/21 at 07:30 Cefepime HCl (Maxipime) 2 gm Q24H IVP Last administered on 05/13/21at 11:55; Start 05/11/21 at 12:00 Metoprolol Tartrate (Lopressor Vial) 5 mg Q6HRS IVP Last administered on 05/14/21at 05:53; Start 05/11/21 at 18:00 Vancomycin HCl 500 mg/Sodium Chloride 100 ml @ 100 mls/hr Q24H IV Last administered on 05/12/21at 19:24; Start 05/12/21 at 09:00; Stop 05/13/21 at 19:00; Status DC Vancomycin HCl (Vancomycin Trough Level) 1 each 1X ONCE MC ; Start 05/13/21 at 17:00; Stop 05/13/21 at 17:01; Status DC Vancomycin HCl 500 mg/Sodium Chloride 100 ml @ 100 mls/hr Q12H IV Last administered on 05/13/21at 18:41; Start 05/14/21 at 06:00 Active Scripts Active Reported Ipratropium [place] 0.2 Mg/1 Ml Solution 1 Vial NEB QID Albuterol Sulfate Conc Neb Soln (Albuterol Sulfate) 2.5 Mg/0.5 Ml Vial.neb 1 Vial NEB Q4HRS FENTANYL 12mcg/hr (Fentanyl) 1 Each Patch.td72 1 Patch TP Q3DAYS Oxycodone Hcl Immed.release (Oxycodone Hcl) 10 Mg Tablet 10 Mg PO PRN Q4HRS PRN Metoprolol Tartrate 25 Mg Tablet 25 Mg PO BID Losartan Potassium 50 Mg Tablet 25 Mg PO DAILY Synthroid (Levothyroxine Sodium) 100 Mcg Tablet 100 Tab PO DAILY Vitals/I & O Vital Sign - Last 24 Hours 05/13/21 05/13/21 05/13/21 05/13/21 11:55 13:44 14:30 15:10 Pulse 107 Resp 19 20 B/P (MAP) 118/63 Pulse Ox 93 O2 Delivery Tracheal Collar Tracheal Collar Tracheal Collar O2 Flow Rate 10.0 10.0 10.0 05/13/21 05/13/21 05/13/21 05/13/21 15:57 17:52 18:40 19:44 Temp 98.6 98.5 98.6 98.5 Pulse 95 95 85 Resp 18 19 20 B/P (MAP) 125/68 (87) 125/68 140/72 (94) Pulse Ox 93 93 97 O2 Delivery Tracheal Collar Tracheal Collar Tracheal Collar O2 Flow Rate 10.0 10.0 10.0 05/13/21 05/13/21 05/13/21 05/13/21 19:50 20:05 21:40 23:14 Temp 98.0 98.0 Pulse 95 Resp 18 16 B/P (MAP) 155/71 (99) Pulse Ox 97 90 O2 Delivery Trach Collar Tracheal Collar Tracheal Collar O2 Flow Rate 10.0 10.0 10.0 10.0 05/14/21 05/14/21 05/14/21 05/14/21 00:00 00:02 00:38 01:28 Pulse 95 Resp 18 B/P (MAP) 155/71 Pulse Ox 94 94 O2 Delivery Tracheal Collar O2 Flow Rate 10.0 10.0 10.0 05/14/21 05/14/21 05/14/21 05/14/21 02:00 04:00 04:09 05:53 Temp 97.8 97.8 Pulse 81 81 Resp 16 B/P (MAP) 151/80 (103) 151/80 Pulse Ox 94 94 96 O2 Delivery Tracheal Collar Tracheal Collar Tracheal Collar O2 Flow Rate 10.0 10.0 10.0 05/14/21 05/14/21 07:00 09:23 Temp 98.0 98.0 Pulse 83 Resp 22 19 B/P (MAP) 159/80 (106) Pulse Ox 93 93 O2 Delivery Tracheal Collar Tracheal Collar O2 Flow Rate 10.0 10.0 Intake and Output 05/13/21 05/13/21 05/14/21 15:00 23:00 07:00 Intake Total 830 ml 0 ml 0 ml Balance 830 ml 0 ml 0 ml Nutrition Consultation Dietary Evaluation: Recommendations by RD: Dietary education by RD, Add supplement feedings Comments: continue nutrition via PEG jevity 1.5 bolus 237 ml (1 carton)4 x day flushes: 175 ml with each bolus Expected Outcomes/Goals: tolerate bolus TF- met, goal ongoing Malnutrition Findings: Muscle Mass (Severe): Severe Depletion Body Fat Depletion (Non Severe: Mod to Severe Weight Status: Underweight Justicifation of Admission Dx: Justifications for Admission: Justification of Admission Dx: Yes Sepsis: Infection RACHEL MATSON MD May 14, 2021 11:22
--- NOTE | 2021-05-14 12:35 | PDOC2 ---
GI CONSULT Date of Service: DATE: 05/14/21 TIME: 12:21 Reason For Consult: Abnormal LFT's HPI: HPI: 66 y/o female found down by son and brought to ER. Had been at [facility] and [facility] prior. Since here, abnormal LFT's--present on admission and mild elevations. Some hypotension briefly 05/11, normotensive since. Denies prior h/o liver issues. No h/o alcohol or IVDU. Denies blood transfusion or FH of liver disease. No heartburn, or dysphagia prior to PEG. No PUD, GB, pancreatic history. Former smoker. No N, V, diarrhea, constipation or overt GI bleeding she's aware of. EGD with PEG placement; knows no details. No colonoscopy. No GIFH she will admit to. PMH: PMH: HTN, COPD, PVD. UTI. S/p hysterectomy, LE stents, Left foot amputation. FH: Family History: Other (No GI related issues.) Social History: Smoke: 1 pack per day ALCOHOL: none Drugs: None ROS: GEN: Denies fevers, chills, sweats HEENT: Denies blurred vision, sore throat CV: Denies chest pain RESP: Denies shortness of air, cough GI: Per HPI : Denies hematuria, dysuria ENDO: Denies weight changes NEURO: Denies confusion, dizziness MSK: Denies weakness, joint pain/swelling SKIN: Denies jaundice, pruritus Vitals: Vitals: Vital Signs Date Time Temp Pulse Resp B/P (MAP) Pulse Ox O2 Delivery O2 Flow Rate FiO2 05/14/21 09:23 19 93 Tracheal Collar 10.0 05/14/21 07:00 98.0 83 159/80 (106) 98.0 Labs: Labs: Laboratory Tests Test 05/13/21 16:45 05/14/21 08:07 Vancomycin Level Trough 7.2 mcg/mL (10.0-20.0) Vancomycin Last Dose Date 05/12/21 Vancomycin Last Dose Time 1730 White Blood Count 7.5 x10^3/uL (4.0-11.0) Red Blood Count 3.41 x10^6/uL (3.50-5.40) Hemoglobin 11.3 g/dL (12.0-15.5) Hematocrit 33.0 % (36.0-47.0) Mean Corpuscular Volume 97 fL (79-100) Mean Corpuscular Hemoglobin 33 pg (25-35) Mean Corpuscular Hemoglobin Concent 34 g/dL (31-37) Red Cell Distribution Width 16.0 % (11.5-14.5) Platelet Count 405 x10^3/uL (140-400) Neutrophils (%) (Auto) 68 % (31-73) Lymphocytes (%) (Auto) 22 % (24-48) Monocytes (%) (Auto) 7 % (0-9) Eosinophils (%) (Auto) 3 % (0-3) Basophils (%) (Auto) 1 % (0-3) Neutrophils # (Auto) 5.0 x10^3/uL (1.8-7.7) Lymphocytes # (Auto) 1.6 x10^3/uL (1.0-4.8) Monocytes # (Auto) 0.5 x10^3/uL (0.0-1.1) Eosinophils # (Auto) 0.2 x10^3/uL (0.0-0.7) Basophils # (Auto) 0.1 x10^3/uL (0.0-0.2) Sodium Level 144 mmol/L (136-145) Potassium Level 4.3 mmol/L (3.5-5.1) Chloride Level 105 mmol/L (98-107) Carbon Dioxide Level 38 mmol/L (21-32) Anion Gap 1 (6-14) Blood Urea Nitrogen 20 mg/dL (7-20) Creatinine 0.6 mg/dL (0.6-1.0) Estimated GFR (Cockcroft-Gault) 120.3 Glucose Level 102 mg/dL (70-99) Calcium Level 9.7 mg/dL (8.5-10.1) Iron Level 76 ug/dL (50-170) Total Iron Binding Capacity 205 ug/dL (250-450) Iron Saturation 37 % (15-34) Total Bilirubin 0.4 mg/dL (0.2-1.0) Direct Bilirubin 0.2 mg/dL (0.0-0.2) Aspartate Amino Transf (AST/SGOT) 35 U/L (15-37) Alanine Aminotransferase (ALT/SGPT) 84 U/L (14-59) Alkaline Phosphatase 143 U/L (46-116) Total Protein 8.9 g/dL (6.4-8.2) Albumin 2.1 g/dL (3.4-5.0) Generous globulin fraction. Mildly elevated LFT's persist. Normal bilirubin. Allergies: Coded Allergies: codeine (Verified Allergy, Severe, 10/09/14) Medications: Current Medications Medications (Trade) Dose Ordered Sig/Alis Route PRN Reason Start Time Stop Time Status Last Admin Dose Admin Vancomycin HCl 500 mg/Sodium Chloride 100 ml @ 100 mls/hr Q12H IV 05/14/21 06:00 05/13/21 18:41 Imaging: Imaging: No abdominal imaging. PE: GEN: NAD HEENT: Atraumatic, PERRLA, trach present. LUNGS: CTAB anteriorly. HEART: RRR, no murmurs ABD: NABS, S/ND/NT, no masses, PEG upper abdomen--site looks OK. EXTREMITY: No edema, left foot absent. SKIN: No rashes, no jaundice NEURO/PSYCH: A & O 3 A/P: A/P: IMP: Elevated LFT's mild and non-specific. Present on admission and not really different after brief relative hypotension. Not likely "shock liver". Given elevated globulins, concern for some underlying liver issue. OP dysphagia, s/p PEG. REC: Check hepatitis serologies, TOÑO, ASMA, iron profile. Sonogram. Continue treating presenting issues. GILBERT SPIVEY MD May 14, 2021 12:35
[2021-05-14] MEDS: CEFEPIME HCL IV Push 2 GM VIAL. IVP SCH (12:44)
[2021-05-14 15:00] VITALS: BP 134/69
[2021-05-14] MEDS: VANCOMYCIN 500 MG in IV NORMAL SALINE 100ML 100 ML IV SCH (17:38)
[2021-05-14] MEDS: fentaNYL PF VIAL 100 MCG/2 ML VIAL IV PRN (18:19)
[2021-05-14 19:46] VITALS: BP 129/63
[2021-05-14 23:09] VITALS: BP 168/94
[2021-05-15 03:04] VITALS: BP 176/81
[2021-05-15] MEDS: VANCOMYCIN 500 MG in IV NORMAL SALINE 100ML 100 ML IV SCH (05:53)
[2021-05-15] MEDS: METOPROLOL IV PUSH 5 MG/5 ML VIAL. IVP SCH ×2 (05:53→12:24)
[2021-05-15 07:00] VITALS: BP 176/83
--- NOTE | 2021-05-15 07:34 | RAD ---
XR CHEST 1V INDICATION: Reason: PNEUMONIA / Spl. Instructions: / History: . COMPARISON STUDY: 05/11/2021. FINDINGS: Life Support Devices: Tracheostomy. Lungs: Normal lung volume. Stable patchy bilateral opacities. Pleura: Stable pleural spaces. Heart and Mediastinum: Stable cardiomediastinal silhouette and great vessels. IMPRESSION: Stable patchy bilateral opacities. Electronically signed by: Yassine Esparza MD (05/15/2021 7:32 AM) [id number]
[2021-05-15 09:03] LABS: BASO % 1 % (0-3); EOS # 0.2 x10^3/uL (0.0-0.7); EOS % 3 % (0-3); HEMATOCRIT 32.3 % (36.0-47.0); HEMOGLOBIN 10.8 g/dL (12.0-15.5); LYMPH # 1.6 x10^3/uL (1.0-4.8); LYMPH % 22 % (24-48); MEAN CORPUSCULAR HEMOGLOBIN 32 pg (25-35); MEAN CORPUSCULAR HGB CONC 34 g/dL (31-37); MEAN CORPUSCULAR VOLUME 97 fL (79-100); MONO # 0.5 x10^3/uL (0.0-1.1); MONO % 7 % (0-9); NEUT # 4.9 x10^3/uL (1.8-7.7); NEUT % 68 % (31-73); PLATELET COUNT 423 x10^3/uL (140-400); RED BLOOD COUNT 3.34 x10^6/uL (3.50-5.40); RED CELL DISTRIBUTION WIDTH 16.1 % (11.5-14.5); WHITE BLOOD COUNT 7.2 x10^3/uL (4.0-11.0)
[2021-05-15 09:27] LABS: ALBUMIN 2.1 g/dL (3.4-5.0); CALCIUM 9.6 mg/dL (8.5-10.1); CREATININE 0.7 mg/dL (0.6-1.0); DIRECT BILIRUBIN 0.1 mg/dL (0.0-0.2); GFR 100.7; POTASSIUM 4.2 mmol/L (3.5-5.1); TOTAL BILIRUBIN 0.4 mg/dL (0.2-1.0); TOTAL PROTEIN 8.8 g/dL (6.4-8.2)
[2021-05-15] MEDS: VANCOMYCIN PER PHARMACY MC PRN (09:41)
[2021-05-15] MEDS: FAMOTIDINE 20 MG/2 ML VIAL IVP SCH (10:14)
[2021-05-15] MEDS: HEPARIN for SUB-Q USE 5,000 UNIT/ML VIAL. SQ SCH (10:17)
[2021-05-15] MEDS: MORPHINE SULFATE 2 MG/ML INJ. IV PRN (10:26)
--- NOTE | 2021-05-15 10:57 | PDOC ---
PROGRESS NOTES Date of Service: DATE: 05/15/21 TIME: 10:57 Chief Complaint Chief Complaint Assessment/Plan Assessment/Plan Sepsis Acute kidney injury. Moderate to severe protein-calorie malnutrition. History of chronic respiratory failure with chronic tracheostomy and PEG tube placement. Respiratory failure with hypoxia / Patchy bilateral interstitial and alveolar opacities could reflect pneumonia or pulmonary edema Healthcare associated pneumonia due to possibly gram-positive or possibly gram- positive organism Aspiration pneumonia Oxycodone overdose DEIRDRE due to vasomotor nephropathy Lactic acidosis Transaminitis Severe malnutrition COVID-19 PUI Tracheostomy secretion for C and S.( Gram positive rods/ cocci) , Follow final cultures Heparin for DVT prophylaxis. Plan: need for PPV and frequent suctioning Consultation placed to pulmonology Will add additional sepsis fluid bolus Continue treatment of pneumonia with vancomycin and cefepime Transaminitis possibly secondary to shock liver; will provide IV fluids and continue to monitor. Narcan as needed Based admission labs kidney function currently consistent with CKD 3b; no baseline kidney function labs to compare. Provide IV fluids and continue to monitor. Will consult nephrology if no significant improvement. MRSA pending COVID-19 pending Consult placed to nutrition Resume home medications FEN - PEG tube feeds per nutrition PPX - Heparin FULL CODE Dispo - inpatient for above Surrogate decision maker is her son (Gavino Wharton) Critical care time 32 minutes spent reviewing charts, reviewing labs, reviewing imaging, discussion with ED personnel and ED attending physician. Discontinue ventilator and we will leave her on trach shield. Mental status has improved. Followup ABGs. Continue broad-spectrum antibiotic. Tracheostomy secretion for C and S. Heparin for DVT prophylaxis. PT/OT Tracheostomy secretion for C and S.( Gram positive rods/ cocci) , Heparin DVT prophylaxis. Check hepatitis serologies, TOÑO, ASMA, iron profile. abd Sonogram. OK DC 9-05 HOME ON [facility] d/c planning 35 min GRAM STAIN EVALUATION Final Final This specimen is of good quality and is acceptable for routine bacterial culture. Culture results to follow. GRAM NEGATIVE RODS:RARE GRAM POSITIVE RODS:FEW GRAM POSITIVE COCCI:RARE Justifications for Admission Justifications for Admission Other Justification History of Present Illness History of Present Illness Identification/Chief Complaint Chief Complaint AMS Source Source: Chart review History of Present Illness History of Present Illness Ms. Art De La Cruz is a 66-year-old tracheostomy and PEG tube dependent patient, who presents to the ED due to altered mental status. She recent return home from [facility] and was found down by her son. Patient is a poor historian due to much information is obtained through son's report to ED personnel. Reportedly found down by her son early this morning with unknown downtime. Prior to this episode her son reported to ED personnel that 20 mg oxycodone pill was crushed and administered through her feeding tube. Upon EMS arrival she was not responsive with GCS of 3. She was initially bagged by EMS but she would intermittently desaturate to around 70% on room air. Upon arrival in the ED she was tachycardic and tachypneic. Her oxygen saturation improved with Narcan. Labs on arrival showed WBC 10.3, hemoglobin 10.6, hematocrit 31.8, BUN 37, creatinine 1.7, CBG 151, lactic acid 5.6, AST 82, ALT 195, alkaline phosphatase 173, albumin 2.4. Chest x-ray showed patchy bilateral interstitial and alveolar opacities possibly reflective of pneumonia or pulmonary edema. She received broad-spectrum antibiotics and IV fluids in the ED. She reportedly has been vaccinated against COVID-19. Will admit to ICU for further medical management. Past Medical History Past Medical History HTN, tracheostomy, PVD, PEG tube dependence (further history unable to obtain due to clinical condition) Past Surgical History Past Surgical History Hysterectomy, bilateral leg stents Family History Family History Unable to obtain at this time due to clinical condition Social History Smoke: 1 pack per day ALCOHOL: none Drugs: None Current Problem List Problem List Problems Medical Problems: (1) Acute on chronic respiratory failure Status: Acute (2) Aspiration pneumonia Status: Acute (3) Opiate overdose Status: Acute (4) Respiratory arrest Status: Acute (5) Sepsis Status: Acute Current Medications Current Medications Current Medications Naloxone HCl (Narcan) 0.4 mg STK-MED ONCE .ROUTE ; Start 05/11/21 at 02:51; Stop 05/11/21 at 02:51; Status DC Naloxone HCl (Narcan) 0.4 mg 1X ONCE IV Last administered on 05/11/21at 02:55; Start 05/11/21 at 03:30; Stop 05/11/21 at 03:31; Status DC Sodium Chloride 1,000 ml @ 1,000 mls/hr 1X ONCE IV Last administered on 05/11/21at 03:30; Start 05/11/21 at 03:30; Stop 05/11/21 at 04:29; Status DC Piperacillin Sod/ Tazobactam Sod 4.5 gm/Sodium Chloride 100 ml @ 200 mls/hr 1X ONCE IV ; Start 05/11/21 at 04:00; Stop 05/11/21 at 04:29; Status UNV Piperacillin Sod/ Tazobactam Sod 3.375 gm/Sodium Chloride 50 ml @ 100 mls/hr 1X ONCE IV Last administered on 05/11/21at 04:11; Start 05/11/21 at 04:15; Stop 05/11/21 at 04:44; Status DC Vancomycin HCl 1.25 gm/Sodium Chloride 250 ml @ 166.667 mls/hr 1X ONCE IV ; Start 05/11/21 at 04:15; Stop 05/11/21 at 05:44; Status UNV Vancomycin HCl 1 gm/Sodium Chloride 250 ml @ 250 mls/hr 1X ONCE IV Last administered on 05/11/21at 04:49; Start 05/11/21 at 05:00; Stop 05/11/21 at 05:59; Status DC Sodium Chloride 500 ml @ 500 mls/hr 1X ONCE IV Last administered on 05/11/21at 05:30; Start 05/11/21 at 05:30; Stop 05/11/21 at 06:29 Allergies Allergies: Coded Allergies: codeine (Verified Allergy, Severe, 10/09/14) ROS Review of System Unable to obtain at this time due to clinical condition 05-13 Acute kidney injury. Moderate to severe protein-calorie malnutrition. History of chronic respiratory failure with chronic tracheostomy and PEG tube placement. Respiratory failure with hypoxia / Patchy bilateral interstitial and alveolar opacities could reflect pneumonia or pulmonary edema Healthcare associated pneumonia due to possibly gram-positive or possibly gram- positive organism Aspiration pneumonia Oxycodone overdose DEIRDRE due to vasomotor nephropathy Lactic acidosis Transaminitis Severe malnutrition COVID-19 PUI Tracheostomy secretion for C and S.( Gram positive rods/ cocci) , Follow final cultures Heparin for DVT prophylaxis. Plan: need for PPV and frequent suctioning Consultation placed to pulmonology Will add additional sepsis fluid bolus Continue treatment of pneumonia with vancomycin and cefepime Transaminitis possibly secondary to shock liver; will provide IV fluids and continue to monitor. Narcan as needed Based admission labs kidney function currently consistent with CKD 3b; no baseline kidney function labs to compare. Provide IV fluids and continue to monitor. Will consult nephrology if no significant improvement. MRSA pending COVID-19 pending Consult placed to nutrition Resume home medications FEN - PEG tube feeds per nutrition PPX - Heparin FULL CODE Dispo - inpatient for above Surrogate decision maker is her son (Gavino Wharton) Critical care time 32 minutes spent reviewing charts, reviewing labs, reviewing imaging, Discontinue ventilator and we will leave her on trach shield. Mental status has improved. Followup ABGs. Continue broad-spectrum antibiotic. Tracheostomy secretion for C and S. Heparin for DVT prophylaxis. PT/OT Tracheostomy secretion for C and S.( Gram positive rods/ cocci) , Heparin DVT prophylaxis. GRAM STAIN EVALUATION Final Final This specimen is of good quality and is acceptable for routine bacterial culture. Culture results to follow. GRAM NEGATIVE RODS:RARE GRAM POSITIVE RODS:FEW GRAM POSITIVE COCCI:RARE 05-14 Acute kidney injury. Moderate to severe protein-calorie malnutrition. History of chronic respiratory failure with chronic tracheostomy and PEG tube placement. Respiratory failure with hypoxia / Patchy bilateral interstitial and alveolar opacities could reflect pneumonia or pulmonary edema Healthcare associated pneumonia due to possibly gram-positive or possibly gram- positive organism Aspiration pneumonia Oxycodone overdose DEIRDRE due to vasomotor nephropathy Lactic acidosis Transaminitis Severe malnutrition HEPATITIS DX PANEL 05-14 Tracheostomy secretion for C and S.( Gram positive rods/ cocci) , Follow final cultures on trach shield Heparin for DVT prophylaxis. need for PPV and frequent suctioning Consultation placed to pulmonology COVID 19 NEG PCR Continue treatment of pneumonia with vancomycin and cefepime Transaminitis possibly secondary to shock liver; will provide IV fluids and continue to monitor. Narcan as needed Based admission labs kidney function currently consistent with CKD 3b; no [facility] kidney function labs to compare. Provide IV fluids and continue to monitor. Will consult nephrology if no significant improvement. MRSA Consult placed to nutrition Resume home medications FEN - PEG tube feeds per nutrition PPX - Heparin FULL CODE Dispo - inpatient for above Surrogate decision maker is her son (Gavino Wharton) Discontinue ventilator and we will leave her on trach shield. Mental status has improved. Followup ABGs. Continue broad-spectrum antibiotic. Tracheostomy secretion for C and S. Heparin for DVT prophylaxis. PT/OT Tracheostomy secretion for C and S.( Gram positive rods/ cocci) , Heparin DVT prophylaxis. abd ida, GI CONSULT 05-14 , FE PANEL 05-14 D/C PLANNING FOR HOME HEALTH 05-15 pt desires GRAM STAIN EVALUATION Final Final This specimen is of good quality and is acceptable for routine bacterial culture. Culture results to follow. GRAM NEGATIVE RODS:RARE GRAM POSITIVE RODS:FEW 05-15 Acute kidney injury. resolved Moderate to severe protein-calorie malnutrition. History of chronic respiratory failure with chronic tracheostomy and PEG tube placement. Respiratory failure with hypoxia / Patchy bilateral interstitial and alveolar opacities could reflect pneumonia or pulmonary edema Healthcare associated pneumonia due to possibly gram-positive or possibly gram- positive organism Aspiration pneumonia Oxycodone overdose DEIRDRE due to vasomotor nephropathy Lactic acidosis Transaminitis Severe malnutrition HEPATITIS DX PANEL 05-14 Tracheostomy secretion for C and S.( Gram positive rods/ cocci) , Follow final cultures on trach shield Heparin for DVT prophylaxis. need for PPV and frequent suctioning Consultation placed to pulmonology COVID 19 NEG PCR Continue treatment of pneumonia with vancomycin and cefepime Transaminitis possibly secondary to shock liver; will provide IV fluids and continue to monitor. Narcan as needed Based admission labs kidney function currently consistent with CKD 3b; no baseline kidney function labs to compare. Provide IV fluids and continue to monitor. Will consult nephrology if no significant improvement. MRSA Consult placed to nutrition Resume home medications FEN - PEG tube feeds per nutrition PPX - Heparin FULL CODE Dispo - inpatient for above Surrogate decision maker is her son (Gavino Wharton) Discontinue ventilator and we will leave her on trach shield. Mental status has improved. Followup ABGs. Continue broad-spectrum antibiotic. Tracheostomy secretion for C and S. Heparin for DVT prophylaxis. PT/OT Tracheostomy secretion for C and S.( Gram positive rods/ cocci) , Heparin DVT prophylaxis. della prieto, GI CONSULT 05-14 , FE PANEL 05-14 D/C PLANNING FOR HOME HEALTH 05-15 pt desires GRAM STAIN EVALUATION Final Final This specimen is of good quality and is acceptable for routine bacterial culture. Culture results to follow. GRAM NEGATIVE RODS:RARE GRAM POSITIVE RODS:FEW Vitals Vitals Vital Signs Date Time Temp Pulse Resp B/P (MAP) Pulse Ox O2 Delivery O2 Flow Rate FiO2 05/15/21 10:26 99 Tracheal Collar 10.0 05/15/21 07:00 98.1 83 16 176/83 (114) 98.1 Physical Exam Physical Exam Physical Exam Physical Exam General: Alert, Cooperative, mild distress, frail-appearing HEENT: PERRLA, EOMI Lungs: Bilateral rales, Normal air movement, tracheostomy tube in place Heart: Tachycardic, no murmurs Cardiovascular: S1, S2 Abdomen: Normal bowel sounds, firm, PEG tube in place with surrounding tenderness Extremities: No clubbing, No cyanosis Skin: No rashes, No significant lesion Neuro: Normal tone, Sensation intact Psych/Mental Status: Mental status NL, Mood NL General: Cooperative Lungs: Other (Anterior rhonchi) Abdomen: Soft Extremities: No cyanosis Labs LABS Laboratory Tests Test 05/15/21 08:21 05/15/21 08:27 Sodium Level 146 mmol/L (136-145) Potassium Level 4.2 mmol/L (3.5-5.1) Chloride Level 105 mmol/L (98-107) Carbon Dioxide Level 40 mmol/L (21-32) Anion Gap 1 (6-14) Blood Urea Nitrogen 15 mg/dL (7-20) Creatinine 0.7 mg/dL (0.6-1.0) Estimated GFR (Cockcroft-Gault) 100.7 Glucose Level 100 mg/dL (70-99) Calcium Level 9.6 mg/dL (8.5-10.1) Total Bilirubin 0.4 mg/dL (0.2-1.0) Direct Bilirubin 0.1 mg/dL (0.0-0.2) Aspartate Amino Transf (AST/SGOT) 35 U/L (15-37) Alanine Aminotransferase (ALT/SGPT) 79 U/L (14-59) Alkaline Phosphatase 139 U/L (46-116) Total Protein 8.8 g/dL (6.4-8.2) Albumin 2.1 g/dL (3.4-5.0) White Blood Count 7.2 x10^3/uL (4.0-11.0) Red Blood Count 3.34 x10^6/uL (3.50-5.40) Hemoglobin 10.8 g/dL (12.0-15.5) Hematocrit 32.3 % (36.0-47.0) Mean Corpuscular Volume 97 fL (79-100) Mean Corpuscular Hemoglobin 32 pg (25-35) Mean Corpuscular Hemoglobin Concent 34 g/dL (31-37) Red Cell Distribution Width 16.1 % (11.5-14.5) Platelet Count 423 x10^3/uL (140-400) Neutrophils (%) (Auto) 68 % (31-73) Lymphocytes (%) (Auto) 22 % (24-48) Monocytes (%) (Auto) 7 % (0-9) Eosinophils (%) (Auto) 3 % (0-3) Basophils (%) (Auto) 1 % (0-3) Neutrophils # (Auto) 4.9 x10^3/uL (1.8-7.7) Lymphocytes # (Auto) 1.6 x10^3/uL (1.0-4.8) Monocytes # (Auto) 0.5 x10^3/uL (0.0-1.1) Eosinophils # (Auto) 0.2 x10^3/uL (0.0-0.7) Basophils # (Auto) 0.0 x10^3/uL (0.0-0.2) Assessment and Plan Assessmemt and Plan Problems Medical Problems: (1) Acute on chronic respiratory failure Status: Acute (2) Aspiration pneumonia Status: Acute (3) Opiate overdose Status: Acute (4) Respiratory arrest Status: Acute (5) Sepsis Status: Acute Comment Review of Relevant I have reviewed the following items omari (where applicable) has been applied. Labs Laboratory Tests Test 05/13/21 16:45 05/14/21 08:07 05/15/21 08:21 05/15/21 08:27 Vancomycin Level Trough 7.2 mcg/mL (10.0-20.0) Vancomycin Last Dose Date 05/12/21 Vancomycin Last Dose Time 1730 White Blood Count 7.5 x10^3/uL (4.0-11.0) 7.2 x10^3/uL (4.0-11.0) Red Blood Count 3.41 x10^6/uL (3.50-5.40) 3.34 x10^6/uL (3.50-5.40) Hemoglobin 11.3 g/dL (12.0-15.5) 10.8 g/dL (12.0-15.5) Hematocrit 33.0 % (36.0-47.0) 32.3 % (36.0-47.0) Mean Corpuscular Volume 97 fL (79-100) 97 fL (79-100) Mean Corpuscular Hemoglobin 33 pg (25-35) 32 pg (25-35) Mean Corpuscular Hemoglobin Concent 34 g/dL (31-37) 34 g/dL (31-37) Red Cell Distribution Width 16.0 % (11.5-14.5) 16.1 % (11.5-14.5) Platelet Count 405 x10^3/uL (140-400) 423 x10^3/uL (140-400) Neutrophils (%) (Auto) 68 % (31-73) 68 % (31-73) Lymphocytes (%) (Auto) 22 % (24-48) 22 % (24-48) Monocytes (%) (Auto) 7 % (0-9) 7 % (0-9) Eosinophils (%) (Auto) 3 % (0-3) 3 % (0-3) Basophils (%) (Auto) 1 % (0-3) 1 % (0-3) Neutrophils # (Auto) 5.0 x10^3/uL (1.8-7.7) 4.9 x10^3/uL (1.8-7.7) Lymphocytes # (Auto) 1.6 x10^3/uL (1.0-4.8) 1.6 x10^3/uL (1.0-4.8) Monocytes # (Auto) 0.5 x10^3/uL (0.0-1.1) 0.5 x10^3/uL (0.0-1.1) Eosinophils # (Auto) 0.2 x10^3/uL (0.0-0.7) 0.2 x10^3/uL (0.0-0.7) Basophils # (Auto) 0.1 x10^3/uL (0.0-0.2) 0.0 x10^3/uL (0.0-0.2) Sodium Level 144 mmol/L (136-145) 146 mmol/L (136-145) Potassium Level 4.3 mmol/L (3.5-5.1) 4.2 mmol/L (3.5-5.1) Chloride Level 105 mmol/L (98-107) 105 mmol/L (98-107) Carbon Dioxide Level 38 mmol/L (21-32) 40 mmol/L (21-32) Anion Gap 1 (6-14) 1 (6-14) Blood Urea Nitrogen 20 mg/dL (7-20) 15 mg/dL (7-20) Creatinine 0.6 mg/dL (0.6-1.0) 0.7 mg/dL (0.6-1.0) Estimated GFR (Cockcroft-Gault) 120.3 100.7 Glucose Level 102 mg/dL (70-99) 100 mg/dL (70-99) Calcium Level 9.7 mg/dL (8.5-10.1) 9.6 mg/dL (8.5-10.1) Iron Level 76 ug/dL (50-170) Total Iron Binding Capacity 205 ug/dL (250-450) Iron Saturation 37 % (15-34) Total Bilirubin 0.4 mg/dL (0.2-1.0) 0.4 mg/dL (0.2-1.0) Direct Bilirubin 0.2 mg/dL (0.0-0.2) 0.1 mg/dL (0.0-0.2) Aspartate Amino Transf (AST/SGOT) 35 U/L (15-37) 35 U/L (15-37) Alanine Aminotransferase (ALT/SGPT) 84 U/L (14-59) 79 U/L (14-59) Alkaline Phosphatase 143 U/L (46-116) 139 U/L (46-116) Total Protein 8.9 g/dL (6.4-8.2) 8.8 g/dL (6.4-8.2) Albumin 2.1 g/dL (3.4-5.0) 2.1 g/dL (3.4-5.0) Laboratory Tests Test 05/15/21 08:21 05/15/21 08:27 Sodium Level 146 mmol/L (136-145) Potassium Level 4.2 mmol/L (3.5-5.1) Chloride Level 105 mmol/L (98-107) Carbon Dioxide Level 40 mmol/L (21-32) Anion Gap 1 (6-14) Blood Urea Nitrogen 15 mg/dL (7-20) Creatinine 0.7 mg/dL (0.6-1.0) Estimated GFR (Cockcroft-Gault) 100.7 Glucose Level 100 mg/dL (70-99) Calcium Level 9.6 mg/dL (8.5-10.1) Total Bilirubin 0.4 mg/dL (0.2-1.0) Direct Bilirubin 0.1 mg/dL (0.0-0.2) Aspartate Amino Transf (AST/SGOT) 35 U/L (15-37) Alanine Aminotransferase (ALT/SGPT) 79 U/L (14-59) Alkaline Phosphatase 139 U/L (46-116) Total Protein 8.8 g/dL (6.4-8.2) Albumin 2.1 g/dL (3.4-5.0) White Blood Count 7.2 x10^3/uL (4.0-11.0) Red Blood Count 3.34 x10^6/uL (3.50-5.40) Hemoglobin 10.8 g/dL (12.0-15.5) Hematocrit 32.3 % (36.0-47.0) Mean Corpuscular Volume 97 fL (79-100) Mean Corpuscular Hemoglobin 32 pg (25-35) Mean Corpuscular Hemoglobin Concent 34 g/dL (31-37) Red Cell Distribution Width 16.1 % (11.5-14.5) Platelet Count 423 x10^3/uL (140-400) Neutrophils (%) (Auto) 68 % (31-73) Lymphocytes (%) (Auto) 22 % (24-48) Monocytes (%) (Auto) 7 % (0-9) Eosinophils (%) (Auto) 3 % (0-3) Basophils (%) (Auto) 1 % (0-3) Neutrophils # (Auto) 4.9 x10^3/uL (1.8-7.7) Lymphocytes # (Auto) 1.6 x10^3/uL (1.0-4.8) Monocytes # (Auto) 0.5 x10^3/uL (0.0-1.1) Eosinophils # (Auto) 0.2 x10^3/uL (0.0-0.7) Basophils # (Auto) 0.0 x10^3/uL (0.0-0.2) Microbiology 05/11/21 Gram Stain Evaluation - Final, Complete 05/11/21 Respiratory Culture - Final, Complete Medications Current Medications Naloxone HCl (Narcan) 0.4 mg STK-MED ONCE .ROUTE ; Start 05/11/21 at 02:51; Stop 05/11/21 at 02:51; Status DC Naloxone HCl (Narcan) 0.4 mg 1X ONCE IV Last administered on 05/11/21at 02:55; Start 05/11/21 at 03:30; Stop 05/11/21 at 03:31; Status DC Sodium Chloride 1,000 ml @ 1,000 mls/hr 1X ONCE IV Last administered on 05/11/21at 03:30; Start 05/11/21 at 03:30; Stop 05/11/21 at 04:29; Status DC Piperacillin Sod/ Tazobactam Sod 4.5 gm/Sodium Chloride 100 ml @ 200 mls/hr 1X ONCE IV ; Start 05/11/21 at 04:00; Stop 05/11/21 at 04:29; Status UNV Piperacillin Sod/ Tazobactam Sod 3.375 gm/Sodium Chloride 50 ml @ 100 mls/hr 1X ONCE IV Last administered on 05/11/21at 04:11; Start 05/11/21 at 04:15; Stop 05/11/21 at 04:44; Status DC Vancomycin HCl 1.25 gm/Sodium Chloride 250 ml @ 166.667 mls/hr 1X ONCE IV ; Start 05/11/21 at 04:15; Stop 05/11/21 at 05:44; Status UNV Vancomycin HCl 1 gm/Sodium Chloride 250 ml @ 250 mls/hr 1X ONCE IV Last administered on 05/11/21at 04:49; Start 05/11/21 at 05:00; Stop 05/11/21 at 05:59; Status DC Sodium Chloride 500 ml @ 500 mls/hr 1X ONCE IV Last administered on 05/11/21at 05:30; Start 05/11/21 at 05:30; Stop 05/11/21 at 06:29; Status DC Sodium Chloride 250 ml @ 250 mls/hr 1X ONCE IV Last administered on 05/11/21at 07:31; Start 05/11/21 at 07:30; Stop 05/11/21 at 08:29; Status DC Naloxone HCl (Narcan) 0.4 mg PRN Q2MIN PRN IV SEE COMMENTS; Start 05/11/21 at 07:00 Acetaminophen (Tylenol) 650 mg PRN Q6HRS PRN PO Headaches, Temp > 101.5'; Star t 05/11/21 at 07:30 Lorazepam (Ativan Inj) 0.5 mg PRN Q6HRS PRN IVP ANXIETY / AGITATION; Start 05/11/21 at 07:30 Ondansetron HCl (Zofran) 4 mg PRN Q6HRS PRN IVP NAUSEA/VOMITING Last administered on 05/13/21 21:36; Start 05/11/21 at 07:30 Famotidine (Pepcid Vial) 20 mg DAILY IVP Last administered on 05/15/21at 10:14; Start 05/11/21 at 09:00 Heparin Sodium (Porcine) (Heparin Sodium) 5,000 unit Q12HR SQ Last administered on 05/15/21 10:17; Start 05/11/21 at 09:00 Sodium Chloride (Normal Saline Flush) 3 ml QSHIFT PRN IV AFTER MEDS AND BLOOD DRAWS; Start 05/11/21 at 07:30 Morphine Sulfate (Morphine Sulfate) 2 mg PRN Q1HR PRN IV SEVERE PAIN Last administered on 05/15/21 10:26; Start 05/11/21 at 07:30 Fentanyl Citrate (Fentanyl 2ml Vial) 25 mcg PRN Q1HR PRN IV MODERATE PAIN Last administered on 05/14/21 18:19; Start 05/11/21 at 07:30 Magnesium Hydroxide (Milk Of Magnesia) 2,400 mg PRN Q12HR PRN PO CONSTIPATION; Start 05/11/21 at 07:30 Vancomycin HCl (Vanco Per Pharmacy) 1 each PRN DAILY PRN MC SEE COMMENTS Last administered on 05/15/21 09:41; Start 05/11/21 at 07:30 Cefepime HCl (Maxipime) 2 gm Q24H IVP Last administered on 05/14/21at 12:44; Sta rt 05/11/21 at 12:00 Metoprolol Tartrate (Lopressor Vial) 5 mg Q6HRS IVP Last administered on 05/15/21 05:53; Start 05/11/21 at 18:00 Vancomycin HCl 500 mg/Sodium Chloride 100 ml @ 100 mls/hr Q24H IV Last administered on 9/2/21at 19:24; Start 05/12/21 at 09:00; Stop 05/13/21 at 19:00; Status DC Vancomycin HCl (Vancomycin Trough Level) 1 each 1X ONCE MC ; Start 05/13/21 at 17:00; Stop 05/13/21 at 17:01; Status DC Vancomycin HCl 500 mg/Sodium Chloride 100 ml @ 100 mls/hr Q12H IV Last administered on 05/15/21at 05:53; Start 05/14/21 at 06:00 Active Scripts Active Reported Ipratropium [place] 0.2 Mg/1 Ml Solution 1 Vial NEB QID Albuterol Sulfate Conc Neb Soln (Albuterol Sulfate) 2.5 Mg/0.5 Ml Vial.neb 1 Vial NEB Q4HRS FENTANYL 12mcg/hr (Fentanyl) 1 Each Patch.td72 1 Patch TP Q3DAYS Oxycodone Hcl Immed.release (Oxycodone Hcl) 10 Mg Tablet 10 Mg PO PRN Q4HRS PRN Metoprolol Tartrate 25 Mg Tablet 25 Mg PO BID Losartan Potassium 50 Mg Tablet 25 Mg PO DAILY Synthroid (Levothyroxine Sodium) 100 Mcg Tablet 100 Tab PO DAILY Vitals/I & O Vital Sign - Last 24 Hours 05/14/21 05/14/21 05/14/21 05/14/21 11:00 12:44 15:00 17:37 Temp 98.3 98.3 Pulse 89 83 81 81 Resp 18 22 B/P (MAP) 114/56 (75) 159/80 134/69 (90) 134/69 Pulse Ox 100 100 O2 Delivery Tracheal Collar Tracheal Collar O2 Flow Rate 10.0 10.0 05/14/21 05/14/21 05/14/21 05/14/21 18:19 19:39 19:46 20:31 Temp 98.2 98.2 Pulse 81 Resp 19 18 16 B/P (MAP) 129/63 (85) Pulse Ox 100 93 O2 Delivery Tracheal Collar Tracheal Collar Trach Collar O2 Flow Rate 10.0 10.0 10.0 10.0 05/14/21 05/14/21 05/14/21 05/14/21 21:40 23:09 23:37 23:38 Temp 98.0 98.0 Pulse 81 81 Resp 20 18 B/P (MAP) 168/94 (118) 168/94 Pulse Ox 100 100 O2 Delivery Tracheal Collar Tracheal Collar O2 Flow Rate 10.0 10.0 10.0 05/15/21 05/15/21 05/15/21 05/15/21 01:12 03:04 05:53 07:00 Temp 97.7 98.1 97.7 98.1 Pulse 79 79 83 Resp 18 18 16 B/P (MAP) 176/81 (112) 176/81 176/83 (114) Pulse Ox 100 100 99 O2 Delivery Tracheal Collar Tracheal Collar O2 Flow Rate 10.0 10.0 10.0 05/15/21 10:26 Pulse Ox 99 O2 Delivery Tracheal Collar O2 Flow Rate 10.0 Intake and Output 05/14/21 05/14/21 05/15/21 15:00 23:00 07:00 Intake Total 830 ml 655 ml Balance 830 ml 655 ml Nutrition Consultation Dietary Evaluation: Recommendations by RD: Dietary education by RD, Add supplement feedings Comments: continue nutrition via PEG jevity 1.5 bolus 237 ml (1 carton)4 x day flushes: 175 ml with each bolus Expected Outcomes/Goals: tolerate bolus TF- met, goal ongoing Malnutrition Findings: Muscle Mass (Severe): Severe Depletion Body Fat Depletion (Non Severe: Mod to Severe Weight Status: Underweight Justicifation of Admission Dx: Justifications for Admission: Justification of Admission Dx: Yes Sepsis: Infection RACHEL MATSON MD May 15, 2021 10:57
[2021-05-15 11:00] VITALS: BP 146/76
--- NOTE | 2021-05-15 12:19 | PDOC3 ---
Discharge Summary Date of Admission: May 11, 2021 Date of Discharge: May 15, 2021 Follow-Up: 1-2 days Admitting Diagnosis comment: HPI History of Present Illness History of Present Illness Ms. Art De La Cruz is a 66-year-old tracheostomy and PEG tube dependent patient, who presents to the ED due to altered mental status. She recent return home from [facility] [place] and was found down by her son. Patient is a poor historian due to much information is obtained through son's report to ED personnel. Reportedly found down by her son early this morning with unknown downtime. Prior to this episode her son reported to ED personnel that 20 mg oxycodone pill was crushed and administered through her feeding tube. Upon EMS arrival she was not responsive with GCS of 3. She was initially bagged by EMS but she would intermittently desaturate to around 70% on room air. Upon arrival in the ED she was tachycardic and tachypneic. Her oxygen saturation improved with Narcan. Labs on arrival showed WBC 10.3, hemoglobin 10.6, hematocrit 31.8, BUN 37, creatinine 1.7, CBG 151, lactic acid 5.6, AST 82, ALT 195, alkaline phosphatase 173, albumin 2.4. Chest x-ray showed patchy bilateral interstitial and alveolar opacities possibly reflective of pneumonia or pulmonary edema. She received broad-spectrum antibiotics and IV fluids in the ED. She reportedly has been vaccinated against COVID-19. Will admit to ICU for further medical management DISCHARGE DX CONSULTS GI, PULMONARY D/C PROGNOSIS GUARDED D/C MEDS SEE MAR Assessment/Plan Sepsis Acute kidney injury. Moderate to severe protein-calorie malnutrition. History of chronic respiratory failure with chronic tracheostomy and PEG tube placement. Respiratory failure with hypoxia / Patchy bilateral interstitial and alveolar opacities could reflect pneumonia or pulmonary edema Healthcare associated pneumonia due to possibly gram-positive or possibly gram- positive organism Aspiration pneumonia Oxycodone overdose DEIRDRE due to vasomotor nephropathy Lactic acidosis Transaminitis Severe malnutrition COVID-19 PUI Tracheostomy secretion for C and S.( Gram positive rods/ cocci) , Follow final cultures Heparin for DVT prophylaxis. Plan: need for PPV and frequent suctioning Consultation placed to pulmonology Will add additional sepsis fluid bolus Continue treatment of pneumonia with vancomycin and cefepime Transaminitis possibly secondary to shock liver; will provide IV fluids and continue to monitor. Narcan as needed Based admission labs kidney function currently consistent with CKD 3b; no baseline kidney function labs to compare. Provide IV fluids and continue to monitor. Will consult nephrology if no significant improvement. MRSA pending COVID-19 pending Consult placed to nutrition Resume home medications FEN - PEG tube feeds per nutrition PPX - Heparin FULL CODE Dispo - inpatient for above Surrogate decision maker is her son (Gavino Wharton) Critical care time 32 minutes spent reviewing charts, reviewing labs, reviewing imaging, discussion with ED personnel and ED attending physician. Discontinue ventilator and we will leave her on trach shield. Mental status has improved. Followup ABGs. Continue broad-spectrum antibiotic. Tracheostomy secretion for C and S. Heparin for DVT prophylaxis. PT/OT Tracheostomy secretion for C and S.( Gram positive rods/ cocci) , Heparin DVT prophylaxis. Check hepatitis serologies, TOÑO, ASMA, iron profile. abd Sonogram. OK DC 05-15 HOME ON AUGMENTIN EX: F EXAM STATUS: ADM IN ORD. PHYSICIAN: RACHEL MATSON MD REASON: PNEUMONIA PROCEDURE: CHEST AP ONLY XR CHEST 1V INDICATION: Reason: PNEUMONIA / Spl. Instructions: / History: . COMPARISON STUDY: 05/11/2021. FINDINGS: Life Support Devices: Tracheostomy. Lungs: Normal lung volume. Stable patchy bilateral opacities. Pleura: Stable pleural spaces. Heart and Mediastinum: Stable cardiomediastinal silhouette and great vessels. IMPRESSION: Stable patchy bilateral opacities. Electronically signed by: Igor Esparza MD (05/15/2021 7:32 AM) [id number] DICTATED and SIGNED BY: IGOR ESPARZA MD DATE: 05/15/21 [id number] 0 d/c planning 35 min GRAM STAIN EVALUATION Final Final This specimen is of good quality and is acceptable for routine bacterial culture. Culture results to follow. GRAM NEGATIVE RODS:RARE GRAM POSITIVE RODS:FEW GRAM POSITIVE COCCI:RARE Justifications for Admission Justifications for Admission Other Justification History of Present Illness History of Present Illness Identification/Chief Complaint Chief Complaint AMS Source Source: Chart review History of Present Illness History of Present Illness Ms. Art De La Cruz is a 66-year-old tracheostomy and PEG tube dependent patient, who presents to the ED due to altered mental status. She recent return home from [facility] [place] and was found down by her son. Patient is a poor historian due to much information is obtained through son's report to ED personnel. Reportedly found down by her son early this morning with unknown downtime. Prior to this episode her son reported to ED personnel that 20 mg oxycodone pill was crushed and administered through her feeding tube. Upon EMS arrival she was not responsive with GCS of 3. She was initially bagged by EMS but she would intermittently desaturate to around 70% on room air. Upon arrival in the ED she was tachycardic and tachypneic. Her oxygen saturation improved with Narcan. Labs on arrival showed WBC 10.3, hemoglobin 10.6, hematocrit 31.8, BUN 37, creatinine 1.7, CBG 151, lactic acid 5.6, AST 82, ALT 195, alkaline phosphatase 173, albumin 2.4. Chest x-ray showed patchy bilateral interstitial and alveolar opacities possibly reflective of pneumonia or pulmonary edema. She received broad-spectrum antibiotics and IV fluids in the ED. She reportedly has been vaccinated against COVID-19. Will admit to ICU for further medical management. Past Medical History Past Medical History HTN, tracheostomy, PVD, PEG tube dependence (further history unable to obtain due to clinical condition) Past Surgical History Past Surgical History Hysterectomy, bilateral leg stents Family History Family History Unable to obtain at this time due to clinical condition Social History Smoke: 1 pack per day ALCOHOL: none Drugs: None Current Problem List Problem List Problems Medical Problems: (1) Acute on chronic respiratory failure Status: Acute (2) Aspiration pneumonia Status: Acute (3) Opiate overdose Status: Acute (4) Respiratory arrest Status: Acute (5) Sepsis Status: Acute Current Medications Current Medications Current Medications Naloxone HCl (Narcan) 0.4 mg STK-MED ONCE .ROUTE ; Start 05/11/21 at 02:51; Stop 05/11/21 at 02:51; Status DC Naloxone HCl (Narcan) 0.4 mg 1X ONCE IV Last administered on 05/11/21at 02:55; Start 05/11/21 at 03:30; Stop 05/11/21 at 03:31; Status DC Sodium Chloride 1,000 ml @ 1,000 mls/hr 1X ONCE IV Last administered on 05/11/21at 03:30; Start 05/11/21 at 03:30; Stop 05/11/21 at 04:29; Status DC Piperacillin Sod/ Tazobactam Sod 4.5 gm/Sodium Chloride 100 ml @ 200 mls/hr 1X ONCE IV ; Start 05/11/21 at 04:00; Stop 05/11/21 at 04:29; Status UNV Piperacillin Sod/ Tazobactam Sod 3.375 gm/Sodium Chloride 50 ml @ 100 mls/hr 1X ONCE IV Last administered on 05/11/21at 04:11; Start 05/11/21 at 04:15; Stop 05/11/21 at 04:44; Status DC Vancomycin HCl 1.25 gm/Sodium Chloride 250 ml @ 166.667 mls/hr 1X ONCE IV ; Start 05/11/21 at 04:15; Stop 05/11/21 at 05:44; Status UNV Vancomycin HCl 1 gm/Sodium Chloride 250 ml @ 250 mls/hr 1X ONCE IV Last administered on 05/11/21at 04:49; Start 05/11/21 at 05:00; Stop 05/11/21 at 05:59; Status DC Sodium Chloride 500 ml @ 500 mls/hr 1X ONCE IV Last administered on 05/11/21at 05:30; Start 05/11/21 at 05:30; Stop 05/11/21 at 06:29 Allergies Allergies: Coded Allergies: codeine (Verified Allergy, Severe, 10/09/14) ROS Review of System Unable to obtain at this time due to clinical condition 05-13 Acute kidney injury. Moderate to severe protein-calorie malnutrition. History of chronic respiratory failure with chronic tracheostomy and PEG tube placement. Respiratory failure with hypoxia / Patchy bilateral interstitial and alveolar opacities could reflect pneumonia or pulmonary edema Healthcare associated pneumonia due to possibly gram-positive or possibly gram- positive organism Aspiration pneumonia Oxycodone overdose DEIRDRE due to vasomotor nephropathy Lactic acidosis Transaminitis Severe malnutrition COVID-19 PUI Tracheostomy secretion for C and S.( Gram positive rods/ cocci) , Follow final cultures Heparin for DVT prophylaxis. Plan: need for PPV and frequent suctioning Consultation placed to pulmonology Will add additional sepsis fluid bolus Continue treatment of pneumonia with vancomycin and cefepime Transaminitis possibly secondary to shock liver; will provide IV fluids and continue to monitor. Narcan as needed Based admission labs kidney function currently consistent with CKD 3b; no baseline kidney function labs to compare. Provide IV fluids and continue to monitor. Will consult nephrology if no significant improvement. MRSA pending COVID-19 neg Consult placed to nutrition Resume home medications FEN - PEG tube feeds per nutrition PPX - Heparin FULL CODE Dispo - inpatient for above Surrogate decision maker is her son (Gavino Wharton) Critical care time 32 minutes spent reviewing charts, reviewing labs, reviewing imaging, Discontinue ventilator and we will leave her on trach shield. Mental status has improved. Followup ABGs. Continue broad-spectrum antibiotic. Tracheostomy secretion for C and S. Heparin for DVT prophylaxis. PT/OT Tracheostomy secretion for C and S.( Gram positive rods/ cocci) , Heparin DVT prophylaxis. GRAM STAIN EVALUATION Final Final This specimen is of good quality and is acceptable for routine bacterial culture. Culture results to follow. GRAM NEGATIVE RODS:RARE GRAM POSITIVE RODS:FEW GRAM POSITIVE COCCI:RARE 05-14 Acute kidney injury. Moderate to severe protein-calorie malnutrition. History of chronic respiratory failure with chronic tracheostomy and PEG tube placement. Respiratory failure with hypoxia / Patchy bilateral interstitial and alveolar opacities could reflect pneumonia or pulmonary edema Healthcare associated pneumonia due to possibly gram-positive or possibly gram- positive organism Aspiration pneumonia Oxycodone overdose DEIRDRE due to vasomotor nephropathy Lactic acidosis Transaminitis Severe malnutrition HEPATITIS DX PANEL 9 Tracheostomy secretion for C and S.( Gram positive rods/ cocci) , Follow final cultures on trach shield Heparin for DVT prophylaxis. need for PPV and frequent suctioning Consultation placed to pulmonology COVID 19 NEG PCR Continue treatment of pneumonia with vancomycin and cefepime Transaminitis possibly secondary to shock liver; will provide IV fluids and continue to monitor. Narcan as needed Based admission labs kidney function currently consistent with CKD 3b; no baseline kidney function labs to compare. Provide IV fluids and continue to monitor. Will consult nephrology if no significant improvement. MRSA Consult placed to nutrition Resume home medications FEN - PEG tube feeds per nutrition PPX - Heparin FULL CODE Dispo - inpatient for above Surrogate decision maker is her son (Gavino Wharton) Discontinue ventilator and we will leave her on trach shield. Mental status has improved. Followup ABGs. Continue broad-spectrum antibiotic. Tracheostomy secretion for C and S. Heparin for DVT prophylaxis. PT/OT Tracheostomy secretion for C and S.( Gram positive rods/ cocci) , Heparin DVT prophylaxis. della prieto, GI CONSULT 05-14 , FE PANEL 05-14 D/C PLANNING FOR HOME HEALTH 05-15 pt desires GRAM STAIN EVALUATION Final Final This specimen is of good quality and is acceptable for routine bacterial culture. Culture results to follow. GRAM NEGATIVE RODS:RARE GRAM POSITIVE RODS:FEW 05-15 Acute kidney injury. resolved Moderate to severe protein-calorie malnutrition. History of chronic respiratory failure with chronic tracheostomy and PEG tube placement. Respiratory failure with hypoxia / Patchy bilateral interstitial and alveolar opacities could reflect pneumonia or pulmonary edema Healthcare associated pneumonia due to possibly gram-positive or possibly gram- positive organism Aspiration pneumonia Oxycodone overdose DEIRDRE due to vasomotor nephropathy Lactic acidosis Transaminitis Severe malnutrition HEPATITIS DX PANEL 05-14 Tracheostomy secretion for C and S.( Gram positive rods/ cocci) , Follow final cultures on trach shield Heparin for DVT prophylaxis. need for PPV and frequent suctioning Consultation placed to pulmonology COVID 19 NEG PCR Continue treatment of pneumonia with vancomycin and cefepime Transaminitis possibly secondary to shock liver; will provide IV fluids and continue to monitor. Narcan as needed Based admission labs kidney function currently consistent with CKD 3b; no baseline kidney function labs to compare. Provide IV fluids and continue to monitor. Will consult nephrology if no significant improvement. MRSA Consult placed to nutrition Resume home medications FEN - PEG tube feeds per nutrition PPX - Heparin FULL CODE Dispo - inpatient for above Surrogate decision maker is her son (Gavino Wharton) Discontinue ventilator and we will leave her on trach shield. Mental status has improved. Followup ABGs. Continue broad-spectrum antibiotic. Tracheostomy secretion for C and S. Heparin for DVT prophylaxis. PT/OT Tracheostomy secretion for C and S.( Gram positive rods/ cocci) , Heparin DVT prophylaxis. della prieto, GI CONSULT 05-14 , FE PANEL 05-14 D/C PLANNING FOR HOME HEALTH 05-15 pt desires GRAM STAIN EVALUATION Final Final This specimen is of good quality and is acceptable for routine bacterial culture. Culture results to follow. GRAM NEGATIVE RODS:RARE GRAM POSITIVE RODS:FEW Vitals Vitals Vital Signs Date Time Temp Pulse Resp B/P (MAP) Pulse Ox O2 Delivery O2 Flow Rate FiO2 05/15/21 10:26 99 Tracheal Collar 10.0 05/15/21 07:00 98.1 83 16 176/83 (789) 98.1 Physical Exam Physical Exam Physical Exam Physical Exam General: Alert, Cooperative,no distress, frail-appearing HEENT: PERRLA, EOMI Lungs: Bilateral rales, Normal air movement, tracheostomy tube in place Heart: Tachycardic, no murmurs Cardiovascular: S1, S2 Abdomen: Normal bowel sounds, firm, PEG tube in place with surrounding tenderness Extremities: No clubbing, No cyanosis Skin: No rashes, No significant lesion Neuro: Normal tone, Sensation intact Psych/Mental Status: Mental status NL, Mood NL General: Cooperative Lungs: Other (Anterior rhonchi) Abdomen: Soft Extremities: No cyanosis FINAL DIAGNOSIS Problems Medical Problems: (1) Acute on chronic respiratory failure Status: Acute (2) Aspiration pneumonia Status: Acute (3) Opiate overdose Status: Acute (4) Respiratory arrest Status: Acute (5) Sepsis Status: Acute Brief Hospital Course Ms. Art De La Cruz is a 66 old [sex] who presented with [ ACUTE RESP FAILURE] CONDITION AT DISCHARGE: Improved Discharge Medications Current Medications Naloxone HCl (Narcan) 0.4 mg STK-MED ONCE .ROUTE ; Start 05/11/21 at 02:51; Stop 05/11/21 at 02:51; Status DC Naloxone HCl (Narcan) 0.4 mg 1X ONCE IV Last administered on 05/11/21at 02:55; Start 05/11/21 at 03:30; Stop 05/11/21 at 03:31; Status DC Sodium Chloride 1,000 ml @ 1,000 mls/hr 1X ONCE IV Last administered on 05/11/21at 03:30; Start 05/11/21 at 03:30; Stop 05/11/21 at 04:29; Status DC Piperacillin Sod/ Tazobactam Sod 4.5 gm/Sodium Chloride 100 ml @ 200 mls/hr 1X ONCE IV ; Start 05/11/21 at 04:00; Stop 05/11/21 at 04:29; Status UNV Piperacillin Sod/ Tazobactam Sod 3.375 gm/Sodium Chloride 50 ml @ 100 mls/hr 1X ONCE IV Last administered on 05/11/21at 04:11; Start 05/11/21 at 04:15; Stop 05/11/21 at 04:44; Status DC Vancomycin HCl 1.25 gm/Sodium Chloride 250 ml @ 166.667 mls/hr 1X ONCE IV ; Start 05/11/21 at 04:15; Stop 05/11/21 at 05:44; Status UNV Vancomycin HCl 1 gm/Sodium Chloride 250 ml @ 250 mls/hr 1X ONCE IV Last administered on 05/11/21at 04:49; Start 05/11/21 at 05:00; Stop 05/11/21 at 05:59; Status DC Sodium Chloride 500 ml @ 500 mls/hr 1X ONCE IV Last administered on 05/11/21at 05:30; Start 05/11/21 at 05:30; Stop 05/11/21 at 06:29; Status DC Sodium Chloride 250 ml @ 250 mls/hr 1X ONCE IV Last administered on 05/11/21at 07:31; Start 05/11/21 at 07:30; Stop 05/11/21 at 08:29; Status DC Naloxone HCl (Narcan) 0.4 mg PRN Q2MIN PRN IV SEE COMMENTS; Start 05/11/21 at 07:00 Acetaminophen (Tylenol) 650 mg PRN Q6HRS PRN PO Headaches, Temp > 101.5'; Start 05/11/21 at 07:30 Lorazepam (Ativan Inj) 0.5 mg PRN Q6HRS PRN IVP ANXIETY / AGITATION; Start 05/11/21 at 07:30 Ondansetron HCl (Zofran) 4 mg PRN Q6HRS PRN IVP NAUSEA/VOMITING Last administered on 05/13/21at 21:36; Start 05/11/21 at 07:30 Famotidine (Pepcid Vial) 20 mg DAILY IVP Last administered on 05/15/21at 10:14; Start 05/11/21 at 09:00 Heparin Sodium (Porcine) (Heparin Sodium) 5,000 unit Q12HR SQ Last administered on 05/15/21at 10:17; Start 05/11/21 at 09:00 Sodium Chloride (Normal Saline Flush) 3 ml QSHIFT PRN IV AFTER MEDS AND BLOOD DRAWS; Start 05/11/21 at 07:30 Morphine Sulfate (Morphine Sulfate) 2 mg PRN Q1HR PRN IV SEVERE PAIN Last administered on 05/15/21at 10:26; Start 05/11/21 at 07:30 Fentanyl Citrate (Fentanyl 2ml Vial) 25 mcg PRN Q1HR PRN IV MODERATE PAIN Last administered on 05/14/21at 18:19; Start 05/11/21 at 07:30 Magnesium Hydroxide (Milk Of Magnesia) 2,400 mg PRN Q12HR PRN PO CONSTIPATION; Start 05/11/21 at 07:30 Vancomycin HCl (Vanco Per Pharmacy) 1 each PRN DAILY PRN MC SEE COMMENTS Last administered on 05/15/21at 09:41; Start 05/11/21 at 07:30 Cefepime HCl (Maxipime) 2 gm Q24H IVP Last administered on 05/14/21at 12:44; Start 05/11/21 at 12:00 Metoprolol Tartrate (Lopressor Vial) 5 mg Q6HRS IVP Last administered on 05/15/21at 05:53; Start 05/11/21 at 18:00 Vancomycin HCl 500 mg/Sodium Chloride 100 ml @ 100 mls/hr Q24H IV Last administered on 05/12/21at 19:24; Start 05/12/21 at 09:00; Stop 05/13/21 at 19:00; Status DC Vancomycin HCl (Vancomycin Trough Level) 1 each 1X ONCE MC ; Start 05/13/21 at 17:00; Stop 05/13/21 at 17:01; Status DC Vancomycin HCl 500 mg/Sodium Chloride 100 ml @ 100 mls/hr Q12H IV Last administered on 05/15/21at 05:53; Start 05/14/21 at 06:00 Active Scripts Active Reported Ipratropium Rhodelia 0.2 Mg/1 Ml Solution 1 Vial NEB QID Albuterol Sulfate Conc Neb Soln (Albuterol Sulfate) 2.5 Mg/0.5 Ml Vial.neb 1 Vial NEB Q4HRS FENTANYL 12mcg/hr (Fentanyl) 1 Each Patch.td72 1 Patch TP Q3DAYS Oxycodone Hcl Immed.release (Oxycodone Hcl) 10 Mg Tablet 10 Mg PO PRN Q4HRS PRN Metoprolol Tartrate 25 Mg Tablet 25 Mg PO BID Losartan Potassium 50 Mg Tablet 25 Mg PO DAILY Synthroid (Levothyroxine Sodium) 100 Mcg Tablet 100 Tab PO DAILY Vital Signs Vital Signs Date Time Temp Pulse Resp B/P (MAP) Pulse Ox O2 Delivery O2 Flow Rate FiO2 05/15/21 11:21 99 10.0 9/5/21 11:00 98.6 81 16 146/76 (99) Tracheal Collar 98.6 Labs Laboratory Tests Test 05/13/21 16:45 05/14/21 08:07 05/15/21 08:21 05/15/21 08:27 Vancomycin Level Trough 7.2 mcg/mL (10.0-20.0) Vancomycin Last Dose Date 05/12/21 Vancomycin Last Dose Time 1730 White Blood Count 7.5 x10^3/uL (4.0-11.0) 7.2 x10^3/uL (4.0-11.0) Red Blood Count 3.41 x10^6/uL (3.50-5.40) 3.34 x10^6/uL (3.50-5.40) Hemoglobin 11.3 g/dL (12.0-15.5) 10.8 g/dL (12.0-15.5) Hematocrit 33.0 % (36.0-47.0) 32.3 % (36.0-47.0) Mean Corpuscular Volume 97 fL (79-100) 97 fL (79-100) Mean Corpuscular Hemoglobin 33 pg (25-35) 32 pg (25-35) Mean Corpuscular Hemoglobin Concent 34 g/dL (31-37) 34 g/dL (31-37) Red Cell Distribution Width 16.0 % (11.5-14.5) 16.1 % (11.5-14.5) Platelet Count 405 x10^3/uL (140-400) 423 x10^3/uL (140-400) Neutrophils (%) (Auto) 68 % (31-73) 68 % (31-73) Lymphocytes (%) (Auto) 22 % (24-48) 22 % (24-48) Monocytes (%) (Auto) 7 % (0-9) 7 % (0-9) Eosinophils (%) (Auto) 3 % (0-3) 3 % (0-3) Basophils (%) (Auto) 1 % (0-3) 1 % (0-3) Neutrophils # (Auto) 5.0 x10^3/uL (1.8-7.7) 4.9 x10^3/uL (1.8-7.7) Lymphocytes # (Auto) 1.6 x10^3/uL (1.0-4.8) 1.6 x10^3/uL (1.0-4.8) Monocytes # (Auto) 0.5 x10^3/uL (0.0-1.1) 0.5 x10^3/uL (0.0-1.1) Eosinophils # (Auto) 0.2 x10^3/uL (0.0-0.7) 0.2 x10^3/uL (0.0-0.7) Basophils # (Auto) 0.1 x10^3/uL (0.0-0.2) 0.0 x10^3/uL (0.0-0.2) Sodium Level 144 mmol/L (136-145) 146 mmol/L (136-145) Potassium Level 4.3 mmol/L (3.5-5.1) 4.2 mmol/L (3.5-5.1) Chloride Level 105 mmol/L (98-107) 105 mmol/L (98-107) Carbon Dioxide Level 38 mmol/L (21-32) 40 mmol/L (21-32) Anion Gap 1 (6-14) 1 (6-14) Blood Urea Nitrogen 20 mg/dL (7-20) 15 mg/dL (7-20) Creatinine 0.6 mg/dL (0.6-1.0) 0.7 mg/dL (0.6-1.0) Estimated GFR (Cockcroft-Gault) 120.3 100.7 Glucose Level 102 mg/dL (70-99) 100 mg/dL (70-99) Calcium Level 9.7 mg/dL (8.5-10.1) 9.6 mg/dL (8.5-10.1) Iron Level 76 ug/dL (50-170) Total Iron Binding Capacity 205 ug/dL (250-450) Iron Saturation 37 % (15-34) Total Bilirubin 0.4 mg/dL (0.2-1.0) 0.4 mg/dL (0.2-1.0) Direct Bilirubin 0.2 mg/dL (0.0-0.2) 0.1 mg/dL (0.0-0.2) Aspartate Amino Transf (AST/SGOT) 35 U/L (15-37) 35 U/L (15-37) Alanine Aminotransferase (ALT/SGPT) 84 U/L (14-59) 79 U/L (14-59) Alkaline Phosphatase 143 U/L (46-116) 139 U/L (46-116) Total Protein 8.9 g/dL (6.4-8.2) 8.8 g/dL (6.4-8.2) Albumin 2.1 g/dL (3.4-5.0) 2.1 g/dL (3.4-5.0) Laboratory Tests Test 05/15/21 08:21 05/15/21 08:27 Sodium Level 146 mmol/L (136-145) Potassium Level 4.2 mmol/L (3.5-5.1) Chloride Level 105 mmol/L (98-107) Carbon Dioxide Level 40 mmol/L (21-32) Anion Gap 1 (6-14) Blood Urea Nitrogen 15 mg/dL (7-20) Creatinine 0.7 mg/dL (0.6-1.0) Estimated GFR (Cockcroft-Gault) 100.7 Glucose Level 100 mg/dL (70-99) Calcium Level 9.6 mg/dL (8.5-10.1) Total Bilirubin 0.4 mg/dL (0.2-1.0) Direct Bilirubin 0.1 mg/dL (0.0-0.2) Aspartate Amino Transf (AST/SGOT) 35 U/L (15-37) Alanine Aminotransferase (ALT/SGPT) 79 U/L (14-59) Alkaline Phosphatase 139 U/L (46-116) Total Protein 8.8 g/dL (6.4-8.2) Albumin 2.1 g/dL (3.4-5.0) White Blood Count 7.2 x10^3/uL (4.0-11.0) Red Blood Count 3.34 x10^6/uL (3.50-5.40) Hemoglobin 10.8 g/dL (12.0-15.5) Hematocrit 32.3 % (36.0-47.0) Mean Corpuscular Volume 97 fL (79-100) Mean Corpuscular Hemoglobin 32 pg (25-35) Mean Corpuscular Hemoglobin Concent 34 g/dL (31-37) Red Cell Distribution Width 16.1 % (11.5-14.5) Platelet Count 423 x10^3/uL (140-400) Neutrophils (%) (Auto) 68 % (31-73) Lymphocytes (%) (Auto) 22 % (24-48) Monocytes (%) (Auto) 7 % (0-9) Eosinophils (%) (Auto) 3 % (0-3) Basophils (%) (Auto) 1 % (0-3) Neutrophils # (Auto) 4.9 x10^3/uL (1.8-7.7) Lymphocytes # (Auto) 1.6 x10^3/uL (1.0-4.8) Monocytes # (Auto) 0.5 x10^3/uL (0.0-1.1) Eosinophils # (Auto) 0.2 x10^3/uL (0.0-0.7) Basophils # (Auto) 0.0 x10^3/uL (0.0-0.2) Allergies Allergies Coded Allergies Type Severity Reaction Last Updated Verified codeine Allergy Severe 10/09/14 Yes Disposition/Orders: D/C to Home w/ HH Justicifation of Admission Dx: Justifications for Admission: Justification of Admission Dx: Yes Sepsis: Infection RACHEL MATSON MD May 15, 2021 12:19
[2021-05-15] MEDS ORDERED: AMOX1TAB10 PO (12:22)
[2021-05-15] MEDS ORDERED: ACET325T21 PO (12:22)
[2021-05-15 12:24] VITALS: BP 146/76
[2021-05-15] MEDS: CEFEPIME HCL IV Push 2 GM VIAL. IVP SCH (12:24)
--- NOTE | 2021-05-15 12:24 | SNU/HH DC ---
DISCHARGE WITH HOME HEALTH DISCHARGE INFORMATION: Discharge Date: May 15, 2021 Final Diagnosis: Problems Medical Problems: (1) Acute on chronic respiratory failure Status: Acute (2) Aspiration pneumonia Status: Acute (3) Opiate overdose Status: Acute (4) Respiratory arrest Status: Acute (5) Sepsis Status: Acute Condition on Discharge: Guarded CODE STATUS: Code Status: Full HOME HEALTH: Face to Face: I certify this patient is under my care and that I, or a nurse practitioner or physician's ophthalmology assistant working with me, had a face to face encounter that meets the physician face to face encounter requirements with this patient on []. Medical Complications: COPD, Pneumonia Fdc For: Admin/Educate Injections, Assess Cardiopulm Status, Assess & Educate Safety, Assess/Skilled Observatio, Medication Management RN For Eval/Treatment: Yes Physical Therapy For: Evalulation/Treatment Occupational Therapy For: Evaluation/Treatment Speech Language Pathology For: Evaluation/Treatment Home Health Aide For: Self-care PROPERTY INSURANCE CLAIMS EXAMINER For: Community Resources Pt Meets Homebound Status: Unsteady balance w/ amb,, Limited distance walking POST DISCHARGE ORDERS: Activity Instructions for Disc: Activity as tolerated DIET AFTER DISCHARGE: Cardiac CHECKS AFTER DISCHARGE: Checks after discharge: Check blood press - daily, Check blood sugar, ac/hs, Check your Temp as needed FOLLOW-UP: PCP to follow Home Health: SEE PCP IN 3-7 DAYS TREATMENT/EQUIPMENT ORDERS: Adaptive Equipment Issued: Commode, Wheelchair Discharge Respiratory Equipmen: Oxygen, Nebulizer CERTIFICATION STATEMENT: Certification Statement: Certification Statement: Based on the above finding, I certify that this patient is confined to the home and needs intermittent long-term care, physical therapy and/or speech therapy, or continues to need occupational therapy.~ This patient is under my care, and I have initiated the establishment of the plan of care.~ This patient will be followed by myself or a community physician who will periodically review the plan of care. Home Meds Active Scripts Amoxicillin/Potassium Clav (AMOX TR-K CLV 500-125 MG TAB) 1 Each Tablet, 1 TAB PO BID for INFECTION for 7 Days, #14 TAB Prov:RACHEL MATSON MD 05/15/21 Acetaminophen (ACETAMINOPHEN) 325 Mg Tablet, 650 MG PO PRN Q6HRS PRN for Headaches, Temp > 101.5' for 14 Days, #60 TAB Prov:RACHEL MATSON MD 05/15/21 Reported Medications Ipratropium [place] (IPRATROPIUM BROMIDE) 0.2 Mg/1 Ml Solution, 1 VIAL NEB QID for INHALER, #300 ML 5 Refills 05/11/21 Albuterol Sulfate (ALBUTEROL SULFATE CONC NEB SOLN) 2.5 Mg/0.5 Ml Vial.neb, 1 VIAL NEB Q4HRS for INHALER, #60 VIAL 1 Refill 05/11/21 Fentanyl (FENTANYL 12mcg/hr) 1 Each Patch.td72, 1 PATCH TP Q3DAYS for PAIN, #10 PATCH 05/11/21 Metoprolol Tartrate (METOPROLOL TARTRATE) 25 Mg Tablet, 25 MG PO BID for FOR HYPERTENSION, #60 TAB 0 Refills 05/11/21 Levothyroxine Sodium (SYNTHROID) 100 Mcg Tablet, 100 TAB PO DAILY for HYPOTHROIDISM , #30 TAB 5 Refills 05/11/21 Discontinued Reported Medications Oxycodone Hcl (OXYCODONE HCL IMMED.RELEASE) 10 Mg Tablet, 10 MG PO PRN Q4HRS PRN for PAIN, TAB 0 Refills 05/11/21 Losartan Potassium (LOSARTAN POTASSIUM) 50 Mg Tablet, 25 MG PO DAILY for HYPERTENSION, TAB 05/11/21 RACHEL MATSON MD May 15, 2021 12:24
--- NOTE | 2021-05-15 12:45 | PDOC ---
G I PROGRESS NOTE Subjective Seems to indicate no complaints. Physical Exam Lungs clear anteriorly. RRR Abdomen soft, not tender. Review of Relevant I have reviewed the following items omari (where applicable) has been applied. Labs Laboratory Tests Test 05/13/21 16:45 05/14/21 08:07 05/15/21 08:21 05/15/21 08:27 Vancomycin Level Trough 7.2 mcg/mL (10.0-20.0) Vancomycin Last Dose Date 05/12/21 Vancomycin Last Dose Time 1730 White Blood Count 7.5 x10^3/uL (4.0-11.0) 7.2 x10^3/uL (4.0-11.0) Red Blood Count 3.41 x10^6/uL (3.50-5.40) 3.34 x10^6/uL (3.50-5.40) Hemoglobin 11.3 g/dL (12.0-15.5) 10.8 g/dL (12.0-15.5) Hematocrit 33.0 % (36.0-47.0) 32.3 % (36.0-47.0) Mean Corpuscular Volume 97 fL (79-100) 97 fL (79-100) Mean Corpuscular Hemoglobin 33 pg (25-35) 32 pg (25-35) Mean Corpuscular Hemoglobin Concent 34 g/dL (31-37) 34 g/dL (31-37) Red Cell Distribution Width 16.0 % (11.5-14.5) 16.1 % (11.5-14.5) Platelet Count 405 x10^3/uL (140-400) 423 x10^3/uL (140-400) Neutrophils (%) (Auto) 68 % (31-73) 68 % (31-73) Lymphocytes (%) (Auto) 22 % (24-48) 22 % (24-48) Monocytes (%) (Auto) 7 % (0-9) 7 % (0-9) Eosinophils (%) (Auto) 3 % (0-3) 3 % (0-3) Basophils (%) (Auto) 1 % (0-3) 1 % (0-3) Neutrophils # (Auto) 5.0 x10^3/uL (1.8-7.7) 4.9 x10^3/uL (1.8-7.7) Lymphocytes # (Auto) 1.6 x10^3/uL (1.0-4.8) 1.6 x10^3/uL (1.0-4.8) Monocytes # (Auto) 0.5 x10^3/uL (0.0-1.1) 0.5 x10^3/uL (0.0-1.1) Eosinophils # (Auto) 0.2 x10^3/uL (0.0-0.7) 0.2 x10^3/uL (0.0-0.7) Basophils # (Auto) 0.1 x10^3/uL (0.0-0.2) 0.0 x10^3/uL (0.0-0.2) Sodium Level 144 mmol/L (136-145) 146 mmol/L (136-145) Potassium Level 4.3 mmol/L (3.5-5.1) 4.2 mmol/L (3.5-5.1) Chloride Level 105 mmol/L (98-107) 105 mmol/L (98-107) Carbon Dioxide Level 38 mmol/L (21-32) 40 mmol/L (21-32) Anion Gap 1 (6-14) 1 (6-14) Blood Urea Nitrogen 20 mg/dL (7-20) 15 mg/dL (7-20) Creatinine 0.6 mg/dL (0.6-1.0) 0.7 mg/dL (0.6-1.0) Estimated GFR (Cockcroft-Gault) 120.3 100.7 Glucose Level 102 mg/dL (70-99) 100 mg/dL (70-99) Calcium Level 9.7 mg/dL (8.5-10.1) 9.6 mg/dL (8.5-10.1) Iron Level 76 ug/dL (50-170) Total Iron Binding Capacity 205 ug/dL (250-450) Iron Saturation 37 % (15-34) Total Bilirubin 0.4 mg/dL (0.2-1.0) 0.4 mg/dL (0.2-1.0) Direct Bilirubin 0.2 mg/dL (0.0-0.2) 0.1 mg/dL (0.0-0.2) Aspartate Amino Transf (AST/SGOT) 35 U/L (15-37) 35 U/L (15-37) Alanine Aminotransferase (ALT/SGPT) 84 U/L (14-59) 79 U/L (14-59) Alkaline Phosphatase 143 U/L (46-116) 139 U/L (46-116) Total Protein 8.9 g/dL (6.4-8.2) 8.8 g/dL (6.4-8.2) Albumin 2.1 g/dL (3.4-5.0) 2.1 g/dL (3.4-5.0) Laboratory Tests Test 05/15/21 08:21 05/15/21 08:27 Sodium Level 146 mmol/L (136-145) Potassium Level 4.2 mmol/L (3.5-5.1) Chloride Level 105 mmol/L (98-107) Carbon Dioxide Level 40 mmol/L (21-32) Anion Gap 1 (6-14) Blood Urea Nitrogen 15 mg/dL (7-20) Creatinine 0.7 mg/dL (0.6-1.0) Estimated GFR (Cockcroft-Gault) 100.7 Glucose Level 100 mg/dL (70-99) Calcium Level 9.6 mg/dL (8.5-10.1) Total Bilirubin 0.4 mg/dL (0.2-1.0) Direct Bilirubin 0.1 mg/dL (0.0-0.2) Aspartate Amino Transf (AST/SGOT) 35 U/L (15-37) Alanine Aminotransferase (ALT/SGPT) 79 U/L (14-59) Alkaline Phosphatase 139 U/L (46-116) Total Protein 8.8 g/dL (6.4-8.2) Albumin 2.1 g/dL (3.4-5.0) White Blood Count 7.2 x10^3/uL (4.0-11.0) Red Blood Count 3.34 x10^6/uL (3.50-5.40) Hemoglobin 10.8 g/dL (12.0-15.5) Hematocrit 32.3 % (36.0-47.0) Mean Corpuscular Volume 97 fL (79-100) Mean Corpuscular Hemoglobin 32 pg (25-35) Mean Corpuscular Hemoglobin Concent 34 g/dL (31-37) Red Cell Distribution Width 16.1 % (11.5-14.5) Platelet Count 423 x10^3/uL (140-400) Neutrophils (%) (Auto) 68 % (31-73) Lymphocytes (%) (Auto) 22 % (24-48) Monocytes (%) (Auto) 7 % (0-9) Eosinophils (%) (Auto) 3 % (0-3) Basophils (%) (Auto) 1 % (0-3) Neutrophils # (Auto) 4.9 x10^3/uL (1.8-7.7) Lymphocytes # (Auto) 1.6 x10^3/uL (1.0-4.8) Monocytes # (Auto) 0.5 x10^3/uL (0.0-1.1) Eosinophils # (Auto) 0.2 x10^3/uL (0.0-0.7) Basophils # (Auto) 0.0 x10^3/uL (0.0-0.2) Microbiology 05/11/21 Gram Stain Evaluation - Final, Complete 05/11/21 Respiratory Culture - Final, Complete Vitals/I & O Vital Sign - Last 24 Hours 05/14/21 05/14/21 05/14/21 05/14/21 12:44 15:00 17:37 18:19 Pulse 83 81 81 Resp 22 19 B/P (MAP) 159/80 134/69 (90) 134/69 Pulse Ox 100 O2 Delivery Tracheal Collar Tracheal Collar O2 Flow Rate 10.0 10.0 05/14/21 05/14/21 05/14/21 05/14/21 19:39 19:46 20:31 21:40 Temp 98.2 98.2 Pulse 81 Resp 18 16 B/P (MAP) 129/63 (85) Pulse Ox 100 93 O2 Delivery Tracheal Collar Trach Collar Tracheal Collar O2 Flow Rate 10.0 10.0 10.0 10.0 05/14/21 05/14/21 05/14/21 05/15/21 23:09 23:37 23:38 01:12 Temp 98.0 98.0 Pulse 81 81 Resp 20 18 18 B/P (MAP) 168/94 (118) 168/94 Pulse Ox 100 100 100 O2 Delivery Tracheal Collar O2 Flow Rate 10.0 10.0 10.0 05/15/21 05/15/21 05/15/21 05/15/21 03:04 05:53 07:00 08:00 Temp 97.7 98.1 97.7 98.1 Pulse 79 79 83 Resp 18 16 B/P (MAP) 176/81 (112) 176/81 176/83 (114) Pulse Ox 100 99 O2 Delivery Tracheal Collar Tracheal Collar Trach Collar O2 Flow Rate 10.0 10.0 10.0 05/15/21 05/15/21 05/15/21 05/15/21 10:26 11:00 11:21 12:24 Temp 98.6 98.6 Pulse 81 81 Resp 16 B/P (MAP) 146/76 (99) 146/76 Pulse Ox 99 92 99 O2 Delivery Tracheal Collar Tracheal Collar O2 Flow Rate 10.0 10.0 10.0 Intake and Output 05/14/21 05/14/21 05/15/21 15:00 23:00 07:00 Intake Total 830 ml 655 ml Balance 830 ml 655 ml Images Per tech notes, gallstone/sludge/hepatic steatosis. Problem List Problems Medical Problems: (1) Acute on chronic respiratory failure Status: Acute (2) Aspiration pneumonia Status: Acute (3) Opiate overdose Status: Acute (4) Respiratory arrest Status: Acute (5) Sepsis Status: Acute Assessment Abnormal LFT's, mild, stable. Much of labs pending re; this. Iron studies c/w ACD. Plan of Care Note Continue support. Await pending data. Justicifation of Admission Dx: Justifications for Admission: Justification of Admission Dx: Yes Sepsis: Infection GILBERT SPIVEY MD May 15, 2021 12:45
--- NOTE | 2021-05-15 16:08 | NUR ---
Discharge Note: CAROLYN CALVIN Discharge instructions and discharge home medications reviewed with Patient and a copy given. All questions have been answered and understanding verbalized. The following instructions and handouts were given: follow up instructions, medication education Discontinued lines and drains: 20 guage left FA, tip intact, patient tolerated well. Patient discharged to home with home health via son.
[2021-05-15 23:08] LABS: IMMUNOGLOBULIN A 269 mg/dL (87-352); IMMUNOGLOBULIN G 2858 mg/dL (586-1602); IMMUNOGLOBULIN M 157 mg/dL (26-217)
--- NOTE | 2021-05-16 08:32 | RAD ---
Exam Date: 05/14/2021 4:58 PM US ABDOMEN COMPLETE Indication: Reason: transaminitis / Spl. Instructions: / History: . TECHNIQUE: Multiple longitudinal and transverse sonographic images of the abdomen are submitted for interpretation. FINDINGS: The liver is normal in size and echogenicity. The portal vein is patent, with hepatopetal flow. N o focal intrahepatic abnormality is seen. Sludge is seen within the gallbladder. There is a 5 mm gallstone near the gallbladder neck. There i s no gallbladder wall thickening or pericholecystic fluid. There is no biliary ductal dilatation, wi th the common bile duct measuring 5 mm. The spleen is normal in size and echogenicity. Atherosclerotic changes are seen in the abdominal aor ta. The visualized abdominal aorta, inferior vena cava and pancreas are otherwise within normal limi ts. There is no upper abdominal ascites. The right kidney appears atrophic and measures 7.2 cm. Th ere is a 1.7 cm complex cyst in the right kidney. The left kidney appears normal and measures 11.6 c m. IMPRESSION: Gallstone and sludge in the gallbladder. No gallbladder wall thickening or pericholecystic fluid. Atrophic right kidney with a small complex cyst, for which further workup with CT or MRI is recommend ed using renal protocol. Electronically signed by: Khadar Maria MD (05/16/2021 8:30 AM) [facility]
[2021-05-17 12:09] LABS: SMOOTH MUSCLE AB 45 Units (0-19)
[2021-05-17 17:23] LABS: ANA INTERP Negative (.)
== END 2021-05-15 15:50 | disposition home health service (06) | DRG 871 ==
LOC: ER 02:45 → ED HOLD 05:09 → 1 WEST ICU 08:53 → 5 NORTH 09:13
PROVIDERS: ADMIT Family Medicine; ATTEND Family Medicine
PROC: 5A09357 Assistance with Respiratory Ventilation, Less than 24 Consecutive Hours, Continuous Positive Airway Pressure (ICD-10-PCS; principal; 2021-05-11)
PROC: 5A1935Z Respiratory Ventilation, Less than 24 Consecutive Hours (ICD-10-PCS; 2021-05-11)
PROC: 5A0935A Assistance with Respiratory Ventilation, Less than 24 Consecutive Hours, High Flow/Velocity Cannula (ICD-10-PCS; 2021-05-12)
DX: A41.9 Sepsis, unspecified organism (principal); N17.0 Acute kidney failure with tubular necrosis; E43 Unspecified severe protein-calorie malnutrition; G92 Toxic encephalopathy; J69.0 Pneumonitis due to inhalation of food and vomit; J96.21 Acute and chronic respiratory failure with hypoxia; J96.22 Acute and chronic respiratory failure with hypercapnia; J15.6 Pneumonia due to other Gram-negative bacteria; J44.0 Chronic obstructive pulmonary disease with (acute) lower respiratory infection; T40.2X1A Poisoning by other opioids, accidental (unintentional), initial encounter; F17.210 Nicotine dependence, cigarettes, uncomplicated; I10 Essential (primary) hypertension; I73.9 Peripheral vascular disease, unspecified; Y95 Nosocomial condition; Z20.822 Contact with and (suspected) exposure to COVID-19; R74.01 Elevation of levels of liver transaminase levels; R94.5 Abnormal results of liver function studies; R79.89 Other specified abnormal findings of blood chemistry; R13.10 Dysphagia, unspecified; Y92.89 Other specified places as the place of occurrence of the external cause; Z90.710 Acquired absence of both cervix and uterus; Z93.0 Tracheostomy status; Z93.1 Gastrostomy status; Z88.5 Allergy status to narcotic agent; Z87.440 Personal history of urinary (tract) infections
CPT/HCPCS: 31720; 36415; 36600; 71045; 76700; 80048; 80053; 80061; 80076; 80202; 81001; 82550; 82784; 82805; 83516; 83540; 83550; 83605; 84145; 85025; 86038; 86140; 86705; 86709; 86803; 87070; 87205; 87340; 87641; 94660; 94760; J0692; J1644; J2270; J2310; J2405; J2543; J3010; J3370; J3490; J7030; J7040; J7050; U0003; U0005; 97530-GP; 99285-25; G0378

== ENCOUNTER 2021-05-16 16:26 | Emergency (ER) | payer MEDICARE ==
[~2021-05-16] VITALS: Ht 162.6 cm; Wt 36.3 kg
[~2021-05-16 16:26] MED LIST: ACET325T21 PO; ALBU2.5V14 NEB; AMOX1TAB10 PO; FENT1PAT13 TP; IPRA0.2S5 NEB; LEVO-101 PO; LOSA-73 PO; METO25TA4 PO; OXYC10TA PO
[2021-05-16] MEDS ORDERED: IV NORMAL SALINE 1000ML BAG 1,650 ML IV SCH (18:15)
[2021-05-16] MEDS ORDERED: VANCOMYCIN PER PHARMACY MC ONE (18:15)
--- NOTE | 2021-05-16 18:15 | PHYS DOC ---
Past Medical History Past Medical History: Hypertension, Other Additional Past Medical Histor: "poor circulation in legs",SEPSIS,PVD,RESP ARREST,RESP FAILURE Past Surgical History: Hysterectomy, Other Additional Past Surgical Histo: bilateral leg stents, TRACH, G TUBE Smoking Status: Former Smoker Alcohol Use: None Drug Use: None General Adult EDM: Chief Complaint: DIARRHEA HPI: HPI: 66 yo F discharged from [facility] yesterday s/p sepsis w/aspiration pneumonia, gosia, transaminitis and PUI, with past medical history of chronic respiratory failure with chronic trach and PEG tube and malnutrition, presents to the ed from home with concern for 5 episodes of watery, nonmalodorous diarrhea and complaints of pain at her trach site, asking for pain medicine stating this pain is chronic. Per rn/ems reported pt was being suctioned at home, required no additional oxygen. EMR was reviewed and patient w/history of opioid overdose with aspiration, which caused her past admission. Review of Systems: Review of Systems: Constitutional: Denies fever or chills. [] Eyes: Denies change in visual acuity. [] HENT: Denies nasal congestion or sore throat. [] Respiratory: Denies cough or shortness of breath. [] Cardiovascular: Denies chest pain or edema. [] GI: Denies abdominal pain, nausea, vomiting, : Denies dysuria or hematuria Musculoskeletal: Denies back pain or joint pain. [] Integument: Denies rash or diaphoresis Neurologic: Denies headache, focal weakness or sensory changes. [] Endocrine: Denies polyuria or polydipsia. [] Lymphatic: Denies swollen glands. [] Psychiatric: Denies depression or anxiety. [] Heart Score: C/O Chest Pain: No Risk Factors: Risk Factors: DM, Current or recent (<one month) smoker, HTN, HLP, family history of CAD, obesity. Risk Scores: Score 0 - 3: 2.5% MACE over next 6 weeks - Discharge Home Score 4 - 6: 20.3% MACE over next 6 weeks - Admit for Clinical Observation Score 7 - 10: 72.7% MACE over next 6 weeks - Early Invasive Strategies Current Medications: Current Medications Medications (Trade) Dose Ordered Sig/Alis Start Time Stop Time Status Last Admin Dose Admin Piperacillin Sod/ Tazobactam Sod 4.5 gm/Sodium Chloride 100 ml @ 200 mls/hr 1X ONCE 05/16/21 18:15 05/16/21 18:44 UNV Sodium Chloride 1,650 ml @ 1,650 mls/hr Q1H 05/16/21 18:15 UNV Vancomycin HCl (Vanco Per Pharmacy) 1 each 1X ONCE 05/16/21 18:15 05/16/21 18:16 UNV Allergies: Allergies: Allergies Coded Allergies Type Severity Reaction Last Updated Verified codeine Allergy Severe 10/09/14 Yes Physical Exam: PE: Constitutional: thin/emaciated, in no acute distress & sleeping comfortably, non-toxic appearance. HENT: Normocephalic, atraumatic, patent trach, Eyes: EOMI, conjunctiva normal, no discharge. Neck: Normal range of motion, supple, Cardiovascular: S1/2 present, tachycardic Lungs & Thorax: Speaking in full sentences, bilateral equal chest rise, no tachypnea or increased work of breathing, on 8 L trach collar Abdomen: soft, no tenderness, peg intact Skin: Warm, dry, Extremities: No tenderness, no cyanosis, no unilateral lower extremity edema Neurologic: Alert, no focal deficits noted. [] Psychologic: Calm mood, normal affect Current Patient Data: Vital Signs: Vital Signs Date Time Temp Pulse Resp B/P (MAP) Pulse Ox O2 Delivery O2 Flow Rate FiO2 05/16/21 16:26 117 24 114/76 (99) 95 Tracheal Collar 8.0 EKG: EKG: [] Radiology/Procedures: Radiology/Procedures: IMAGING REPORT Signed PATIENT: CAROLYN CALVIN LACCOUNT: [id number] : 1955 LOCATION: ER AGE: 66 SEX: F EXAM STATUS: REG ER ORD. PHYSICIAN: KAVYA TALAVERA DO REASON: diarrhea, pui PROCEDURE: PORTABLE CHEST 1V Exam: Chest one view INDICATION: Diarrhea TECHNIQUE: Frontal view of the chest Comparisons: 05/14/2021 FINDINGS: Tracheostomy tube noted. The cardiomediastinal silhouette and pulmonary vessels are within normal limits. Strandy perihilar airspace disease. No pleural effusion. IMPRESSION: Strandy perihilar airspace disease which is decreased when compared to prior studies. Findings could relate to resolving edema. Electronically signed by: Shayy Bright MD (05/16/2021 7:49 PM) [facility] DICTATED and SIGNED BY: SHAYY BRIGHT MD DATE: 05/16/[id number] 0 IMAGING REPORT Signed PATIENT: CAROLYN CALVIN LACCOUNT: [id number] : 1955 LOCATION: ER AGE: 66 SEX: F EXAM STATUS: REG ER ORD. PHYSICIAN: KAVYA TALAVERA DO REASON: diarrhea;OMNI 300, 75ML PROCEDURE: CT ABD PELV W/ IV CONTRST ONLY CT abdomen and pelvis with contrast: Reason for examination: Diarrhea. Helical images were obtained through the abdomen and pelvis with intravenous administration of 75 cc Omnipaque 300. Reconstruction was performed in sagittal and coronal planes. Exposure: One or more of the following individualized dose reduction techniques were utilized for this examination: 1. Automated exposure control 2. Adjustment of the mA and/or kV according to patient size 3. Use of iterative reconstruction technique. The lung bases show some nodular density posteriorly against the pleural surface at the right lung base measuring 1.8 cm in length and 1.1 cm in thickness. There is also some infiltrate or atelectasis at the left lung base posteriorly. The heart size is normal with no pericardial effusion evident. No focal abnormality seen at the liver, spleen, pancreas, gallbladder or adrenal glands. The abdominal aorta shows arteriosclerotic vascular calcification but no aneurysmal dilatation or dissection. No abnormality seen at the inferior vena cava. Right kidney is atrophic. The kidneys shows no mass, renal calculi or hydronephrosis. Gastrostomy tube is present in the stomach and the stomach is not distended. Evaluation of the intestinal tract is limited without intra- abdominal fat or oral contrast but shows no abnormal dilatation or wall thickeni ng but there is fluid content in the intestine. There is no evidence of obstruction. No abnormality is seen at the appendix. No abnormality is seen at the bladder or vaginal cuff. No gross free fluid or free air is seen in the abdomen or pelvis. No acute bony abnormalities are seen. IMPRESSION: Pleural-based nodular density in the right lung base measuring 1.8 x 1.1 cm in greatest dimensions. Recommend follow-up according to Fleischner Society guidelines. Patchy infiltrate or atelectasis at the left lung base. Atrophic right kidney. Fluid content in the intestinal tract without gross dilatation or wall thickening and no evidence of obstruction is seen. Electronically signed by: Abhishek Leonardo MD (05/16/2021 11:30 PM) [facility] DICTATED and SIGNED BY: ABHISHEK LEONARDO MD DATE: 05/16/21 [id number] 0 Course & Med Decision Making: Course & Med Decision Making Pertinent Labs and Imaging studies reviewed. (See chart for details) One episode of diarrhea in ed, rn reported stool was not malodorous or typical of cdifficile. EMR was reviewed and patient received cefepime and vancomycin on prior admission. Pt with mild leukocytosis. D-dimer was ordered in error. Pt resting comfortably in ed. Pt with no hemoptysis, leg swelling or dyspnea. Pt asking for analgesia but given h/o opiod overdose, hesitant to treat each request with opiods. Pt calm, in no distress and makes jokes with her rn (rn knew pt from prior admission/overdose). I considered admission but given pandemic/no available hospital beds and discharge from hospital yesterday, will attempt outpt followup. Will discharge home with strict ED return precautions were given for diarrhea, dehydration, fever, abdominal pain, bloody stool or foul-smelling stool. Encouraged urgent outpatient follow-up with PMD and GI. Life-threatening processes were considered but are low suspicion at this time, given history, physical exam and ED workup. Pt was educated on all prescription medications and adverse effects. All patient's questions were answered and pt was stable at time of discharge. Life/limb-threatening differential includes but is not limited to, GI bleeding, toxigenic versus infectious diarrhea, shock, mesenteric ischemia, electrolyte abnormality, thyroid storm, toxidrome, antibiotic related, head trauma, syncope, malignancy, inflammatory bowel disease or surgical abdomen (appendicitis, perforated diverticulitis, bowel obstruction, Hirschsprung's, intussusception, etc). I have spoken with the patient and/or caregivers. I explained the patient's condition, diagnoses and treatment plan based on the information available to me at this time. I have answered the patient and/or caregiver's questions and addressed any concerns. The patient and/or caregivers have a good understanding of patient's diagnosis, condition and treatment plan as can be expected at this point. Vital signs have been stable. Patient's condition is stable and appropriate for discharge from the emergency department. Patient will pursue further outpatient evaluation with primary care physician or other designated or consulting physician as outlined in the discharge instructions. The patient and/or caregivers are agreeable to this plan of care and follow-up instructions have been explained in detail. The patient and/or caregivers have received these instructions in written form and have expressed an understanding of the discharge instructions. The patient and/or caregivers are aware that any significant change of condition or worsening of symptoms should prompt immediate return to this or the closest emergency department or call to [facility]. Sandra Disclaimer: Viewglass Disclaimer: This electronic medical record was generated, in whole or in part, using a voice recognition dictation system. Departure Departure Impression: Primary Impression: Diarrhea Additional Impression: Chronic pain Disposition: HOME / SELF CARE / HOMELESS Condition: STABLE Referrals: LINCOLN CARCAMO MD (PCP) Follow-up with your primary care physician in 24 to 48 hours OR FOLLOW UP WITH FAMILY MEDICINE: [address] [place] [address], [address] [address] Patient Instructions: Chronic Pain Management, Diarrhea Additional Instructions: FOLLOW UP WITH GASTROENTEROLOGY: FOR DEFINITIVE MANAGEMENT -may benefit from s tool testing if diarrhea worsens or does not resolve [facility] [address] [place] [address] EMERGENCY DEPARTMENT GENERAL DISCHARGE INSTRUCTIONS Thank you for coming to [facility] Emergency Department (ED) today and trusting us with you care. We trust that you had a positive experience in our Emergency Department. If you wish to speak to the department management, you may call the Director at [phone]. YOUR FOLLOW UP INSTRUCTIONS ARE FOLLOWS: 1. Do you have a private Doctor? If you do not have a private doctor, please ask for a resource list of physicians or clinics that may be able to assist you with follow up care. 2. The Emergency Physicain has interpreted your x-rays. The X-Ray specialist will also review them. If there is a change in the findings, you will be notified in 48 hours when at all possible. 3. A lab test or culture has been done, your results will be reviewed and you will be notified if you need a change in treatment. ADDITIONAL INSTRUCTIONS AND INFORMATION: 1. Your care today has been supervised by a physician who is specially trained in emergency care. Many problems require more than one evaluation for a complete diagnosis and treatment. We recommend that you schedule your follow up appointment as recommended to ensure complete treatment of you illness or injury. If you are unable to obtain follow up care and continue to have a problem, or if your condition worsens, we recommend that you return to the ED. 2. We are not able to safely determine your condition over the phone nor are we able to give sound medical advice over the phone. For these safety reasons, if you call for medical advice we will ask you to come to the ED for further evaluation. 3. If you have any questions regarding these discharge instructions please call the ED at [phone]. SAFETY INFORMATION: In the interest of safety, wellness, and injury prevention; we encourage you to wear your sealbelt, if you smoke; quite smoking, and we encourage family to use a protective helmet for bicycling and other sporting events that present an increased risk for head injury. IF YOUR SYMPTOMS WORSEN OR NEW SYMPTOMS DEVELOP, OR YOU HAVE CONCERNS ABOUT YOUR CONDITION; OR IF YOUR CONDITION WORSENS WHILE YOU ARE WAITING FOR YOUR FOLLOW UP APPOINTMENT; EITHER CONTACT YOUR PRIMARY CARE DOCTOR, THE PHYSICIAN WHOSE NAME AND NUMBER YOU WERE GIVEN, OR RETURN TO THE ED IMMEDIATELY. KAVYA GORMAN DO May 16, 2021 18:15
[2021-05-16 18:27] LABS: BASO # 0.1 x10^3/uL (0.0-0.2); BASO % 1 % (0-3); EOS % 0 % (0-3); HEMATOCRIT 35.6 % (36.0-47.0); HEMOGLOBIN 12.1 g/dL (12.0-15.5); LYMPH # 1.7 x10^3/uL (1.0-4.8); LYMPH % 15 % (24-48); MEAN CORPUSCULAR HEMOGLOBIN 33 pg (25-35); MEAN CORPUSCULAR HGB CONC 34 g/dL (31-37); MEAN CORPUSCULAR VOLUME 97 fL (79-100); MONO # 0.5 x10^3/uL (0.0-1.1); MONO % 4 % (0-9); NEUT % 80 % (31-73); PLATELET COUNT 544 x10^3/uL (140-400); RED BLOOD COUNT 3.66 x10^6/uL (3.50-5.40); RED CELL DISTRIBUTION WIDTH 16.5 % (11.5-14.5); WHITE BLOOD COUNT 11.2 x10^3/uL (4.0-11.0)
[2021-05-16] MEDS ORDERED: PIPERACILLIN/TAZOBACTAM 4.5 GM in IV NORMAL SALINE 100ML 100 ML IV ONE (18:30)
--- NOTE | 2021-05-16 19:51 | RAD ---
Exam: Chest one view INDICATION: Diarrhea TECHNIQUE: Frontal view of the chest Comparisons: 05/14/2021 FINDINGS: Tracheostomy tube noted. The cardiomediastinal silhouette and pulmonary vessels are within normal limits. Strandy perihilar airspace disease. No pleural effusion. IMPRESSION: Strandy perihilar airspace disease which is decreased when compared to prior studies. Findings could relate to resolving edema. Electronically signed by: Shayy Walters MD (05/16/2021 7:49 PM) PRASHANT
[2021-05-16] MEDS ORDERED: IV NORMAL SALINE 1000ML BAG 1,000 ML IV ONE (20:00)
[2021-05-16] MEDS ORDERED: VANCOMYCIN 1 GM in IV NORMAL SALINE 250ML 250 ML IV ONE (20:00)
--- NOTE | 2021-05-16 20:15 | EKG ---
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
[2021-05-16] MEDS ORDERED: MORPHINE SULFATE 4 MG/ML INJ. ONE (20:47)
[2021-05-16] MEDS ORDERED: MORPHINE SULFATE 4 MG/ML INJ. IVP ONE (21:00)
[2021-05-16] MEDS ORDERED: IOHEXOL 300 MG/ML 100ML VIAL. IV ONE (22:30)
[2021-05-16] MEDS ORDERED: CONTRAST GIVEN. MC PRN (22:30)
[2021-05-16 23:13] LABS: CALCIUM 8.8 mg/dL (8.5-10.1); CREATININE 0.8 mg/dL (0.6-1.0); GFR 86.3
[2021-05-16] MEDS ORDERED: KETOROLAC 15 MG/ML VIAL. IVP ONE (23:15)
[2021-05-16 23:20] LABS: ALBUMIN 2.1 g/dL (3.4-5.0); DIRECT BILIRUBIN 0.2 mg/dL (0.0-0.2); PROTHROMBIN TIME PATIENT 14.2 SEC (11.7-14.0); TOTAL BILIRUBIN 0.4 mg/dL (0.2-1.0); TOTAL PROTEIN 8.1 g/dL (6.4-8.2)
[2021-05-16 23:23] LABS: D-DIMER 2.45 ug/mlFEU (0.00-0.50)
--- NOTE | 2021-05-16 23:32 | RAD ---
CT abdomen and pelvis with contrast: Reason for examination: Diarrhea. Helical images were obtained through the abdomen and pelvis with intravenous administration of 75 cc Omnipaque 300. Reconstruction was performed in sagittal and coronal planes. Exposure: One or more of the following individualized dose reduction techniques were utilized for thi s examination: 1. Automated exposure control 2. Adjustment of the mA and/or kV according to patient size 3. Use of iterative reconstruction technique. The lung bases show some nodular density posteriorly against the pleural surface at the right lung ba se measuring 1.8 cm in length and 1.1 cm in thickness. There is also some infiltrate or atelectasis a t the left lung base posteriorly. The heart size is normal with no pericardial effusion evident. No focal abnormality seen at the liver, spleen, pancreas, gallbladder or adrenal glands. The abdomina l aorta shows arteriosclerotic vascular calcification but no aneurysmal dilatation or dissection. No abnormality seen at the inferior vena cava. Right kidney is atrophic. The kidneys shows no mass, cece l calculi or hydronephrosis. Gastrostomy tube is present in the stomach and the stomach is not disten ded. Evaluation of the intestinal tract is limited without intra-abdominal fat or oral contrast but s hows no abnormal dilatation or wall thickening but there is fluid content in the intestine. There is no evidence of obstruction. No abnormality is seen at the appendix. No abnormality is seen at the bladder or vaginal cuff. No gross free fluid or free air is seen in the abdomen or pelvis. No acute bony abnormalities are seen. IMPRESSION: Pleural-based nodular density in the right lung base measuring 1.8 x 1.1 cm in greatest dimensions. R ecommend follow-up according to Fleischner Society guidelines. Patchy infiltrate or atelectasis at the left lung base. Atrophic right kidney. Fluid content in the intestinal tract without gross dilatation or wall thickening and no evidence of obstruction is seen. Electronically signed by: Kristi Dowd MD (05/16/2021 11:30 PM) DANNY
[2021-05-17] MEDS ORDERED: IOHEXOL 300 MG/ML 100ML VIAL. ONE (02:45)
[2021-05-17 03:25] VITALS: BP 177/109
== END 2021-05-17 03:30 | disposition home or self-care (01) ==
LOC: ER 16:26
DX: R19.7 Diarrhea, unspecified (principal); G89.29 Other chronic pain; I10 Essential (primary) hypertension; F17.200 Nicotine dependence, unspecified, uncomplicated; Z88.5 Allergy status to narcotic agent
CPT/HCPCS: 36415; 71045; 74177; 80048; 80076; 82550; 83605; 83615; 83690; 84484; 85025; 85379; 85610; 85730; 87040; 93005; 96361; 96365; 96367; 96375; 99285; J1885; J2270; J2543; J3370; J7030; J7050; Q9967